=== PATIENT | female | born 1955 | race Caucasian/White ===

== ENCOUNTER 2017-10-10 19:47 | Emergency (ER) | payer OTHER ==
[~2017-10-10] VITALS: Ht 160 cm; Wt 70.8 kg
[~2017-10-10 19:47] MED LIST: ACIDOPHILUS1 EAC1 PO; ALBU90OI6 INH; ALEN70 PO; AMIT10 PO; ASPI81CH; ATOR10; ATOR20 PO; ATOR40TA PO; BACPOLTO30 TP; BENZ100A PO; BETH25 PO; BUME1 PO; BUTASPCAF PO; BUTASPCAFT PO; CALCAVITD PO; CALCIUM 600 +1 EAC3 PO; CEFD300 PO; CEPH500 PO; CETI10 PO; CETI5 PO; CHOL10002; CHOL10002 PO; CILO100 PO; CILO50 PO; CIPR500 PO; CLON.1 PO; CLON1; CODACE30 PO; CONEST.625 PO; CONESTTC VAG; CRUTCH2 USE; CRUTCH4 USE; CYAN1000 PO; CYAN500 PO; CYCL10 PO; Cilostazol50 MG PO; Cleocin HCl300 MG PO; Clindamycin HC150 MG PO; DIAZ5 PO; DIPH50 PO; DOCU100 PO; DULO30 PO; EEMT; EPIN.3I IM; ERGO400 PO; ERGOCALCIFEROL; ESTR2 PO; FENO145 PO; FLUC100 PO; FLUSAL1005 IH; FLUSAL5005 INH; FLUT110OIA IH; FOLI1 PO; FOSI10; FOSI10 PO; FOSINOPRIL; FURO40; FURO40 PO; Ferus150 MG PO; GABA100 PO; GABA300 PO; GLYB5; HYDACE5 PO; HYDCHL25 PO; HYDPAM25; HYDPAM50; HYOS.375ER; Hydrocodone-Ap1 EA23 PO; Hydroxyzine HCl50 MG PO; IMIP50; INS70/30PN SC; INSR10I SC; INSUASPI SC; INSULANI SC; INSULANPEN SC; INSULANPEN SQ; IPRA.03NI; Ipratropium Bro30 ML; JANUVIA; KETO10 PO; LAVAP17G PO; LEVFLO500 PO; LISI20 PO; LISI5 PO; LORA1; Loperamide2 MG PO; MAG PO; MAGCHL64ER PO; MELO7.5 PO; METF500; METO100ER PO; METO2.5 PO; METO50 PO; MOMENI; MONT10T; MONT10T PO; MONT4 PO; MUPI1NAS TOP; MUPI2TO TOP; MUPIROCIN 2% TOP; Metformin HCl1000 MG PO; Metoprolol Tar100 MG PO; Micro-K10 MEQ PO; NAPR500 PO; NIFE60ER; NIFE60ER PO; NITR100CA PO; NITR50; Norco 5-325 Ta1 EACH PO; Novofine 321 EACH MC; OMEP10ER; OMEP20ER PO; OMEP40CA12 PO; OMEPRAZOLE MAGN20 MG PO; ONDA8 PO; OXYACE5T PO; OXYB5 PO; OXYGEN 2L; PANT40; PHENA200 PO; PIOG15; POLY17UD PO; POTA10T PO; POTCHL20ER; POTCHL20ER PO; PROACE100; PROACE100 PO; PROM25 PO; Peri-Colace Ta1 EACH PO; Prednisone10 MG PO; Prednisone20 MG PO; QUET200 PO; RA CALCIUM PO; RANI150; RANI150 PO; RXALBOI INH; RXOXYACE PO; RXPROACE PO; RXTRAM50 PO; SENN187 PO; SERT100; SERT100 PO; SERT50 PO; SITA100T2 PO; SITA25T2 PO; SUCR1 PO; SUMA25 PO; SYNTHETIC CONJUGATED ESTROGENS B; Sorbitol473 ML PO; TOCO400 PO; TRAACE PO; TRAM50 PO; TRAZ100 PO; TRAZ150T57 PO; TRAZ50 PO; TRIHYD253A; TRIHYD253B; Tylenol325 MG PO; Valium5 MG PO; Voltaren100 GM TOP; XARELTO20 MG PO; ZIPR20; ZIPR20 PO; ZIPR80; ZIPR80 PO; ZOLM2.5 PO; ZYRTEC10 M1 PO; Zofran Odt4 MG PO; Zofran Odt4 MG SL; Zofran Odt8 MG SL; [UNRECOGNIZED DRUG - CODE]; [UNRECOGNIZED DRUG - OTHER]; [UNRECOGNIZED DRUG - OTHER]; [UNRECOGNIZED DRUG - OTHER] PO
[2017-10-10] MEDS ORDERED: Glucophage1000 MG PO (20:39)
[2017-10-10 21:02] LABS: Source, Urine Clean Catch
[2017-10-10 21:09] LABS: Bilirubin, Urine Neg (Neg); Blood, Urine 1+ (Neg); Glucose Qualitative, Urine 4+ (Neg); Ketones, Urine Neg (Neg); Leukocyte Esterase, Urine Neg (Neg); Nitrite, Urine Neg (Neg); Protein, Urine 1+ (Neg); Urobilinogen, Urine NORM (Normal)
[2017-10-10 21:15] LABS: Appearance, Urine Clear (Clear); Bacteria Not Seen /hpf; Color, Urine Yellow (P-Yellow); Red Blood Cells, Urine Rare /hpf (0-2); Squamous Epithelial Cells Not Seen /hpf (Few); White Blood Cells, Urine Not Seen /hpf (0-5)
[2017-10-10 21:16] LABS: Amorphous Light (0-Heavy); Transitional Epithelial Cells Few /hpf (0-Rare)
[2017-10-10] MEDS ORDERED: Robaxin500 MG PO (22:17)
[2018-04-25] MEDS ORDERED: BUDE6HFA INH (13:37)
[2018-09-01] MEDS ORDERED: Omeprazole20 M1 PO (14:14)
[2018-09-01] MEDS ORDERED: Nifediac Cc60 MG PO (14:14)
[2018-09-01] MEDS ORDERED: CEFU250T47 PO (14:15)
[2018-09-01] MEDS ORDERED: METCAR500 PO (14:16)
== END 2017-10-10 23:00 | disposition home or self-care (01) ==
LOC: ER 19:47
PROVIDERS: Emergency Medicine
DX: M54.41 Lumbago with sciatica, right side (principal); E11.40 Type 2 diabetes mellitus with diabetic neuropathy, unspecified; F32.9 Major depressive disorder, single episode, unspecified; J44.9 Chronic obstructive pulmonary disease, unspecified; Z88.1 Allergy status to other antibiotic agents; Z88.0 Allergy status to penicillin; Z88.8 Allergy status to other drugs, medicaments and biological substances; Z88.2 Allergy status to sulfonamides; Z79.899 Other long term (current) drug therapy; Z79.4 Long term (current) use of insulin; Z90.710 Acquired absence of both cervix and uterus; Z87.891 Personal history of nicotine dependence
CPT/HCPCS: 72100; 72170; 81001; 96374; 99283; J1885; P9612

== ENCOUNTER 2017-12-14 21:08 | Emergency (ER) | payer OTHER ==
[~2017-12-14] VITALS: Ht 160 cm; Wt 61.7 kg
[~2017-12-14 21:08] MED LIST changes: +Glucophage1000 MG PO; +Robaxin500 MG PO
[2018-04-25] MEDS ORDERED: BUDE6HFA INH (13:37)
[2018-09-01] MEDS ORDERED: Omeprazole20 M1 PO (14:14)
[2018-09-01] MEDS ORDERED: Nifediac Cc60 MG PO (14:14)
[2018-09-01] MEDS ORDERED: CEFU250T47 PO (14:15)
[2018-09-01] MEDS ORDERED: METCAR500 PO (14:16)
== END 2017-12-14 22:00 | disposition home or self-care (01) ==
LOC: ER 21:08
DX: M25.561 Pain in right knee (principal); J44.9 Chronic obstructive pulmonary disease, unspecified; E11.40 Type 2 diabetes mellitus with diabetic neuropathy, unspecified; F32.9 Major depressive disorder, single episode, unspecified; Z88.1 Allergy status to other antibiotic agents; Z88.0 Allergy status to penicillin; Z88.8 Allergy status to other drugs, medicaments and biological substances; Z88.2 Allergy status to sulfonamides; Z79.899 Other long term (current) drug therapy; Z79.4 Long term (current) use of insulin; W19.XXXA Unspecified fall, initial encounter; Y92.009 Unspecified place in unspecified non-institutional (private) residence as the place of occurrence of the external cause
CPT/HCPCS: 73562-RT; 99283

== ENCOUNTER 2018-04-04 08:00 | Day surgery (SDC) | payer OTHER | END 2018-04-04 09:52 | disposition home or self-care (01) | LOC: WOUND 08:00 | PROC: 2W1RX6Z Compression of Left Lower Leg using Pressure Dressing (ICD-10-PCS; principal; 2018-04-04) | DX: Z48.00 Encounter for change or removal of nonsurgical wound dressing (principal); E11.622 Type 2 diabetes mellitus with other skin ulcer; L97.822 Non-pressure chronic ulcer of other part of left lower leg with fat layer exposed; L97.921 Non-pressure chronic ulcer of unspecified part of left lower leg limited to breakdown of skin; L97.911 Non-pressure chronic ulcer of unspecified part of right lower leg limited to breakdown of skin; E55.9 Vitamin D deficiency, unspecified; E11.65 Type 2 diabetes mellitus with hyperglycemia; I10 Essential (primary) hypertension; Z88.8 Allergy status to other drugs, medicaments and biological substances; Z88.0 Allergy status to penicillin; Z88.1 Allergy status to other antibiotic agents; Z87.891 Personal history of nicotine dependence; Z86.73 Personal history of transient ischemic attack (TIA), and cerebral infarction without residual deficits | CPT/HCPCS: 87081; G0463 ==

== ENCOUNTER 2018-04-09 13:32 | Day surgery (SDC) | payer OTHER | END 2018-04-09 14:17 | disposition home or self-care (01) | LOC: WOUND 13:32 | PROC: 2W1RX6Z Compression of Left Lower Leg using Pressure Dressing (ICD-10-PCS; principal; 2018-04-09) | DX: E11.622 Type 2 diabetes mellitus with other skin ulcer (principal); E11.65 Type 2 diabetes mellitus with hyperglycemia; L97.822 Non-pressure chronic ulcer of other part of left lower leg with fat layer exposed; I10 Essential (primary) hypertension ==

== ENCOUNTER 2018-05-02 10:32 | Day surgery (SDC) | payer OTHER ==
[~2018-05-02 10:32] MED LIST changes: +BUDE6HFA INH
== END 2018-05-02 14:21 | disposition home or self-care (01) ==
LOC: ATC 10:32
DX: E11.622 Type 2 diabetes mellitus with other skin ulcer (principal); E11.65 Type 2 diabetes mellitus with hyperglycemia; L97.822 Non-pressure chronic ulcer of other part of left lower leg with fat layer exposed; I10 Essential (primary) hypertension
CPT/HCPCS: 99211

== ENCOUNTER 2018-05-07 00:52 | Day surgery (SDC) | payer OTHER | END 2018-05-07 15:33 | disposition home or self-care (01) | LOC: ATC 00:52 | DX: E11.622 Type 2 diabetes mellitus with other skin ulcer (principal); L97.822 Non-pressure chronic ulcer of other part of left lower leg with fat layer exposed; E11.65 Type 2 diabetes mellitus with hyperglycemia; I10 Essential (primary) hypertension | CPT/HCPCS: 87081; 99214 ==

== ENCOUNTER 2018-05-14 00:17 | Day surgery (SDC) | payer OTHER | END 2018-05-14 22:34 | disposition home or self-care (01) | LOC: ATC 00:17 | DX: E11.622 Type 2 diabetes mellitus with other skin ulcer (principal); E11.65 Type 2 diabetes mellitus with hyperglycemia; L97.822 Non-pressure chronic ulcer of other part of left lower leg with fat layer exposed; I10 Essential (primary) hypertension | CPT/HCPCS: 87081; 99214 ==

== ENCOUNTER 2018-05-20 00:05 | Day surgery (SDC) | payer OTHER | END 2018-05-20 14:44 | disposition home or self-care (01) | LOC: ATC 00:05 | DX: I87.2 Venous insufficiency (chronic) (peripheral) (principal); E11.65 Type 2 diabetes mellitus with hyperglycemia; I10 Essential (primary) hypertension; Z88.8 Allergy status to other drugs, medicaments and biological substances; Z87.891 Personal history of nicotine dependence | CPT/HCPCS: 99212 ==

== ENCOUNTER → 2018-06-10 | Outpatient (CLI) | payer OTHER | END | disposition home or self-care (01) | LOC: LAB 17:37 → LAB SHORT 17:37 | DX: L03.032 Cellulitis of left toe (principal); M79.671 Pain in right foot | CPT/HCPCS: 87070; 87077; 87147; 87186; 87205 ==

== ENCOUNTER 2019-01-06 19:50 | Emergency (ER) | payer OTHER ==
[~2019-01-06] VITALS: Ht 160 cm; Wt 61.7 kg
[~2019-01-06 19:50] MED LIST changes: +CEFU250T47 PO; +METCAR500 PO; +Nifediac Cc60 MG PO; +Omeprazole20 M1 PO
[2019-01-06] MEDS ORDERED: Norco 5-325 Ta1 EACH PO (20:53)
== END 2019-01-06 21:01 | disposition home or self-care (01) ==
LOC: ER 19:50
DX: S93.401A Sprain of unspecified ligament of right ankle, initial encounter (principal); E11.40 Type 2 diabetes mellitus with diabetic neuropathy, unspecified; J44.9 Chronic obstructive pulmonary disease, unspecified; M79.7 Fibromyalgia; F32.9 Major depressive disorder, single episode, unspecified; Z88.0 Allergy status to penicillin; Z88.1 Allergy status to other antibiotic agents; Z88.2 Allergy status to sulfonamides; Z88.8 Allergy status to other drugs, medicaments and biological substances; Z79.4 Long term (current) use of insulin; Z79.899 Other long term (current) drug therapy; Z85.828 Personal history of other malignant neoplasm of skin; Z86.73 Personal history of transient ischemic attack (TIA), and cerebral infarction without residual deficits; Z87.891 Personal history of nicotine dependence; X50.0XXA Overexertion from strenuous movement or load, initial encounter
CPT/HCPCS: 73610; 99283-25

== ENCOUNTER 2019-01-18 16:43 | Inpatient (IN) | payer OTHER ==
[~2019-01-18] VITALS: Ht 165.1 cm; Wt 72.3 kg
[~2019-01-18 16:43] MED LIST changes: -INSULANPEN SQ; +NOVOLOG FL100 UNIT/1 SC
[2019-01-18 17:47] LABS: BASOPHILS ABSOLUTE AUTO 0.03 K/mm3 (0.00-0.23); BASOPHILS PERCENT AUTO 0 % (0-2); EOSINOPHILS ABSOLUTE AUTO 0.12 K/mm3 (0.00-0.68); EOSINOPHILS PERCENT AUTO 1 % (0-6); Hematocrit 34.5 % (33.0-51.0); IMMATURE GRAN ABSOLUTE AUTO 0.03 K/mm3 (0.00-0.10); IMMATURE GRAN PERCENT AUTO 0 % (0-1); LYMPHOCYTES PERCENT AUTO 15 % (21-46); MONOCYTES ABSOLUTE AUTO 0.83 K/mm3 (0.16-1.47); MONOCYTES PERCENT AUTO 9 % (4-13); Mean Corpuscular HGB 29.2 pg (26.0-34.0); Mean Corpuscular HGB Conc 31.9 g/dL (31.5-36.5); Mean Corpuscular Volume 92 fL (80-100); Mean Platelet Volume 9.8 fL (9.1-12.4); NEUTROPHILS ABSOLUTE AUTO 6.55 K/mm3 (1.96-9.15); NEUTROPHILS PERCENT AUTO 74 % (41-73); Platelet Count 240 K/mm3 (150-400); RDW Coefficient Variation 12.7 % (11.7-14.2); RDW Standard Deviation 42.1 fL (35.1-46.3); Red Blood Cell Count 3.77 M/mm3 (3.80-5.20); White Blood Cell Count 8.86 K/mm3 (4.00-11.30)
[2019-01-18 18:06] LABS: Alanine Aminotransfer (ALT/SGP 21 U/L (12-78); Albumin, Blood 2.9 g/dL (3.4-5.0); Albumin/Globulin Ratio 0.7 (0.8-1.8); Alk Phos 93 U/L (50-136); Anion Gap 6 mmol/L (6-16); Aspartate Aminotrans (AST/SGOT 13 U/L (12-37); Bilirubin, Total 0.3 mg/dL (0.1-1.0); Blood Urea Nitrogen 22 mg/dL (8-24); Bun/Creatinine Ratio 38.1 (12.0-20.0); CO2, Blood 29 mmol/L (21-32); Calcium, Blood 8.8 mg/dL (8.5-10.1); Chloride, Blood 106 mmol/L (98-108); Creatinine, Blood 0.58 mg/dL (0.40-1.00); Globulin, Blood 4.1 g/dL (2.2-4.0); Glomerular Filtration Rate >60 (60-); Glucose, Blood 116 mg/dL (70-99); Sodium, Blood 141 mmol/L (136-145)
[2019-01-18] MEDS ORDERED: Cilostazol50 MG PO (19:23)
[2019-01-18] MEDS ORDERED: GABA300 PO (19:23)
[2019-01-18] MEDS ORDERED: SUMA25 PO (19:23)
[2019-01-18] MEDS ORDERED: QUET25 PO (19:23)
[2019-01-18] MEDS ORDERED: METCAR500 PO (19:24)
[2019-01-18] MEDS ORDERED: HYDHCL25 PO (19:24)
[2019-01-18] MEDS ORDERED: Norco 5-325 Ta1 EACH PO (19:25)
--- NOTE | 2019-01-19 04:30 | NUR ---
SHIFT SUMMARY PT NEW ED ADMIT THIS EVENING. LLE VERY SWOLLEN, RED, AND HOT. REDNESS EXTENDS FROM TOP OF FOOT TO JUST BELOW THE KNEE. OUTLINE REDNESS WITH SKIN MARKER AND PICTURES WERE TAKEN AND PLACED IN THE CHART. NO WEEPING NOTED. LLE LEFT OPEN TO AIR. PT WAS ABLE TO BEAR WEIGHT ON HER LEG BUT WAS SLOW MOVING WITH AMBULATION. REQUIRED LITTLE TO NO ASSISTANCE TO GET UP TO THE BSC. PT HAS CHRONIC GENERALIZED PAIN WITH ACUTE MORE SEVERE PAIN IN LLE. MEDICATED X 1 W/ 1 TAB NORCO 5/325 AND ORDERED MUSCLE RELAXER. PT WORE 2 L O2 NC AT BEDTIME WHICH IS HER HOME BASELINE DOSE. NO ACUTE CHANGES THIS SHIFT. PT RESTING IN BED AT THIS TIME. VITAL SIGNS STABLE. WILL CONTINUE TO MONITOR.
[2019-01-19 05:31] LABS: Hematocrit 32.6 % (33.0-51.0); Hemoglobin 10.5 g/dL (11.5-16.0); Mean Corpuscular HGB 29.1 pg (26.0-34.0); Mean Corpuscular HGB Conc 32.2 g/dL (31.5-36.5); Mean Corpuscular Volume 90 fL (80-100); Mean Platelet Volume 9.8 fL (9.1-12.4); Platelet Count 226 K/mm3 (150-400); RDW Coefficient Variation 12.6 % (11.7-14.2); RDW Standard Deviation 41.6 fL (35.1-46.3); Red Blood Cell Count 3.61 M/mm3 (3.80-5.20); White Blood Cell Count 6.73 K/mm3 (4.00-11.30)
--- NOTE | 2019-01-19 17:09 | NUR ---
ALERT. ORIENTED. REDNESS TO LLE WITHIN MARKED AREA. HISTORY OF ULCER TO LEFT GREAT TOE W/PODIATRY TREATING. ANTIBIOTIC ONITMENT APPLIED AND BANDAID. ABLE TO MAKE NEEDS KNOWN. HAD SOME "CHEST DISCOMFORT" WHICH SHE STS HAS HAD FOR MONTHS. RESOLVED WITH BREATHING TREATMENT. AMBULATORY WITH STEADY GAIT TO [facility]. IV PATENT. ON OXYGEN. UNLABORED RESPIRATIONS. BED IN LOW POSITION. CALL LIGHT WITHIN REACH. TM.
--- NOTE | 2019-01-20 04:48 | NUR ---
SHIFT SUMMARY PT ADMITTED FOR CELLULITIS OF THE LEFT LEG. FULL CODE. ADA DIET. CBG AT AC AND HS. CONTINUOUS PULSE OX REFUSED AND PAPER SIGNED PER REPORT. LOVENOX FOR DVT PROPHYLAXIS. 20G IV TO R FA. INDEPENDENT TO BSC. TAKES MEDICATIONS WHOLE. PTS BLOOD CULTURE WAS POSITIVE FOR GRAM POSITIVE COCCI IN CHAINS AND THE MD IS AWARE PER REPORT. THE PT IS A POSSIBLE DISHCARGE TODAY. THE PT HAS APPEARED TO SLEEP COMFORTABLY MOST OF THE NIGHT WITH NO APPARENT SIGNS OF ACUTE DISTRESS. ABLE TO MAKE NEEDS KNOWN AND CALL LIGHT IN REACH.
[2019-01-20 05:25] LABS: BASOPHILS ABSOLUTE AUTO 0.02 K/mm3 (0.00-0.23); BASOPHILS PERCENT AUTO 0 % (0-2); EOSINOPHILS ABSOLUTE AUTO 0.17 K/mm3 (0.00-0.68); EOSINOPHILS PERCENT AUTO 3 % (0-6); Hematocrit 31.5 % (33.0-51.0); IMMATURE GRAN ABSOLUTE AUTO 0.01 K/mm3 (0.00-0.10); IMMATURE GRAN PERCENT AUTO 0 % (0-1); LYMPHOCYTES ABSOLUTE AUTO 1.47 K/mm3 (0.84-5.20); LYMPHOCYTES PERCENT AUTO 24 % (21-46); MONOCYTES ABSOLUTE AUTO 0.54 K/mm3 (0.16-1.47); MONOCYTES PERCENT AUTO 9 % (4-13); Mean Corpuscular HGB 29.5 pg (26.0-34.0); Mean Corpuscular HGB Conc 31.7 g/dL (31.5-36.5); Mean Platelet Volume 10.4 fL (9.1-12.4); NEUTROPHILS ABSOLUTE AUTO 3.83 K/mm3 (1.96-9.15); NEUTROPHILS PERCENT AUTO 64 % (41-73); Platelet Count 234 K/mm3 (150-400); RDW Coefficient Variation 12.7 % (11.7-14.2); RDW Standard Deviation 43.3 fL (35.1-46.3); Red Blood Cell Count 3.39 M/mm3 (3.80-5.20); White Blood Cell Count 6.04 K/mm3 (4.00-11.30)
[2019-01-20 05:28] LABS: Mean Corpuscular Volume 93 fL (80-100)
[2019-01-20 05:55] LABS: Anion Gap 6 mmol/L (6-16); Blood Urea Nitrogen 11 mg/dL (8-24); Bun/Creatinine Ratio 19.1 (12.0-20.0); CO2, Blood 30 mmol/L (21-32); Calcium, Blood 8.5 mg/dL (8.5-10.1); Chloride, Blood 107 mmol/L (98-108); Creatinine, Blood 0.58 mg/dL (0.40-1.00); Glomerular Filtration Rate >60 (60-); Glucose, Blood 173 mg/dL (70-99); Potassium, Blood 3.6 mmol/L (3.5-5.5); Sodium, Blood 143 mmol/L (136-145)
[2019-01-20] MEDS ORDERED: ALBU90OI6 INH (14:57)
[2019-01-20] MEDS ORDERED: Vsl#3 Capsule1 EACH PO (14:59)
[2019-01-20] MEDS ORDERED: DULERA 100 MCG/13 GM INH (15:00)
[2019-01-20] MEDS ORDERED: METO100ER PO (15:01)
[2019-01-20] MEDS ORDERED: Prinivil10 MG PO (15:03)
[2019-01-20] MEDS ORDERED: CEPH500 PO (16:02)
--- NOTE | 2019-01-20 16:29 | NUR ---
DISCHARGE SUMMARY IV REMOVED. PATIENT DISCHARGED. ESCORTED OUT BY MILL SET UP. RX CALLED TO [facility] [address]. NO ACUTE ISSUES NOTED.
== END 2019-01-20 15:38 | disposition home or self-care (01) | DRG 638 ==
LOC: ER 16:43 → MEDS 16:44 → ENPENDDIS 01-20 13:30 → MEDS 01-20 15:38
PROVIDERS: Emergency Medicine; Internal Medicine; Nurse Practitioner Acute Care; ADMIT Hospitalist
DX: E11.628 Type 2 diabetes mellitus with other skin complications (principal); L03.116 Cellulitis of left lower limb; R78.81 Bacteremia; J44.9 Chronic obstructive pulmonary disease, unspecified; K21.9 Gastro-esophageal reflux disease without esophagitis; M79.7 Fibromyalgia; G47.33 Obstructive sleep apnea (adult) (pediatric); Z86.73 Personal history of transient ischemic attack (TIA), and cerebral infarction without residual deficits; I73.9 Peripheral vascular disease, unspecified; E11.9 Type 2 diabetes mellitus without complications; Z86.718 Personal history of other venous thrombosis and embolism; Z79.4 Long term (current) use of insulin; Z99.81 Dependence on supplemental oxygen; F32.9 Major depressive disorder, single episode, unspecified; K21.0 Gastro-esophageal reflux disease with esophagitis; I10 Essential (primary) hypertension; Z87.891 Personal history of nicotine dependence; F41.1 Generalized anxiety disorder; L97.529 Non-pressure chronic ulcer of other part of left foot with unspecified severity
CPT/HCPCS: 36415; 80048; 80053; 82947; 83605; 85025; 85027; 87040; 93971; 94640; 94760; 96361; 96365; 96366; 96367; 96372; 96376; 99285-25; A9270-GY; G0378; J0690; J1650; J1815; J7030

== ENCOUNTER → 2019-03-17 | Outpatient (CLI) | payer OTHER ==
[~2019-03-17] MED LIST changes: +ACET325 PO; +Anti-Diarrheal2 MG PO; +DULERA 100 MCG/13 GM INH; +FLUTICASONE-SA1 EAC1 INH; +HYDHCL25 PO; +LIDO700A20 TOP; +ONDA4ODT MM; +Oyster Shell C500 MG PO; +Prinivil10 MG PO; +QUET25 PO; +Robaxin750 MG PO; +Vsl#3 Capsule1 EACH PO
[2019-03-17 14:49] LABS: Candida species (DNA Probe) Positive (NEGATIVE); G. vaginalis (DNA Probe) Negative (NEGATIVE); T. vaginalis (DNA Probe) Negative (NEGATIVE)
== END | disposition home or self-care (01) ==
LOC: LAB SHORT 09:51 → LAB 09:51
PROVIDERS: Nurse Practitioner Obstetrics & Gynecology
DX: N76.0 Acute vaginitis (principal)
CPT/HCPCS: 81001; 87070; 87086; 87147; 87205; 87480; 87510; 87660

== ENCOUNTER 2019-04-11 17:29 | Emergency (ER) | payer OTHER ==
[~2019-04-11] VITALS: Ht 160 cm; Wt 71.7 kg
[~2019-04-11 17:29] MED LIST changes: -ACET325 PO; -Anti-Diarrheal2 MG PO; -FLUTICASONE-SA1 EAC1 INH; -LIDO700A20 TOP; -ONDA4ODT MM; -Oyster Shell C500 MG PO
[2019-04-11] MEDS ORDERED: LIDO700A20 TOP (19:27)
== END 2019-04-11 19:41 | disposition home or self-care (01) ==
LOC: ER 17:29
DX: S39.012A Strain of muscle, fascia and tendon of lower back, initial encounter (principal); R07.89 Other chest pain; W01.198A Fall on same level from slipping, tripping and stumbling with subsequent striking against other object, initial encounter; J44.9 Chronic obstructive pulmonary disease, unspecified; E11.40 Type 2 diabetes mellitus with diabetic neuropathy, unspecified; F32.9 Major depressive disorder, single episode, unspecified; Z88.0 Allergy status to penicillin; Z88.1 Allergy status to other antibiotic agents; Z88.2 Allergy status to sulfonamides; Z88.8 Allergy status to other drugs, medicaments and biological substances; Z79.899 Other long term (current) drug therapy; Z79.4 Long term (current) use of insulin; Z87.891 Personal history of nicotine dependence
CPT/HCPCS: 71046; 72100; 99283-25

== ENCOUNTER 2019-04-24 02:05 | Day surgery (SDC) | payer OTHER ==
[~2019-04-24 02:05] MED LIST changes: +LIDO700A20 TOP
== END 2019-04-24 16:05 | disposition home or self-care (01) ==
LOC: ATC 02:05
DX: L03.116 Cellulitis of left lower limb (principal); E11.621 Type 2 diabetes mellitus with foot ulcer; L97.521 Non-pressure chronic ulcer of other part of left foot limited to breakdown of skin; Z79.899 Other long term (current) drug therapy; Z79.4 Long term (current) use of insulin; Z88.0 Allergy status to penicillin; Z88.2 Allergy status to sulfonamides; Z88.1 Allergy status to other antibiotic agents; Z88.8 Allergy status to other drugs, medicaments and biological substances
CPT/HCPCS: 96365; 96375; 96413; 96415; J0878

== ENCOUNTER 2019-04-25 13:55 | Day surgery (SDC) | payer OTHER | END 2019-04-25 14:42 | disposition home or self-care (01) | LOC: ATC 13:55 | DX: L03.116 Cellulitis of left lower limb (principal); E11.621 Type 2 diabetes mellitus with foot ulcer; L97.521 Non-pressure chronic ulcer of other part of left foot limited to breakdown of skin; S39.012A Strain of muscle, fascia and tendon of lower back, initial encounter; R07.89 Other chest pain; E11.40 Type 2 diabetes mellitus with diabetic neuropathy, unspecified; J44.9 Chronic obstructive pulmonary disease, unspecified; F32.9 Major depressive disorder, single episode, unspecified; Z88.1 Allergy status to other antibiotic agents; Z88.0 Allergy status to penicillin; Z88.2 Allergy status to sulfonamides; Z88.8 Allergy status to other drugs, medicaments and biological substances; Z79.899 Other long term (current) drug therapy; Z87.891 Personal history of nicotine dependence; Z79.4 Long term (current) use of insulin; W19.XXXA Unspecified fall, initial encounter | CPT/HCPCS: 96365; J0878 ==

== ENCOUNTER 2019-04-27 00:01 | Day surgery (SDC) | payer OTHER | END 2019-04-27 15:15 | disposition home or self-care (01) | LOC: ATC 00:01 | DX: E11.621 Type 2 diabetes mellitus with foot ulcer (principal); L97.521 Non-pressure chronic ulcer of other part of left foot limited to breakdown of skin; L03.116 Cellulitis of left lower limb; E11.40 Type 2 diabetes mellitus with diabetic neuropathy, unspecified; J44.9 Chronic obstructive pulmonary disease, unspecified; F32.9 Major depressive disorder, single episode, unspecified; J45.909 Unspecified asthma, uncomplicated; Z88.1 Allergy status to other antibiotic agents; Z88.0 Allergy status to penicillin; Z88.8 Allergy status to other drugs, medicaments and biological substances; Z88.2 Allergy status to sulfonamides; Z79.899 Other long term (current) drug therapy; Z79.4 Long term (current) use of insulin; Z87.891 Personal history of nicotine dependence | CPT/HCPCS: 96365; J0878 ==

== ENCOUNTER 2019-04-28 00:16 | Day surgery (SDC) | payer OTHER | END 2019-04-28 14:45 | disposition home or self-care (01) | LOC: ATC 00:16 | DX: E11.621 Type 2 diabetes mellitus with foot ulcer (principal); E11.40 Type 2 diabetes mellitus with diabetic neuropathy, unspecified; L97.521 Non-pressure chronic ulcer of other part of left foot limited to breakdown of skin; L03.116 Cellulitis of left lower limb; J44.9 Chronic obstructive pulmonary disease, unspecified; F32.9 Major depressive disorder, single episode, unspecified; M79.7 Fibromyalgia; G89.29 Other chronic pain; Z79.899 Other long term (current) drug therapy; Z98.890 Other specified postprocedural states; Z88.0 Allergy status to penicillin; Z88.8 Allergy status to other drugs, medicaments and biological substances; Z88.1 Allergy status to other antibiotic agents; Z88.2 Allergy status to sulfonamides; Z79.4 Long term (current) use of insulin; Z87.891 Personal history of nicotine dependence | CPT/HCPCS: 96365; J0878 ==

== ENCOUNTER 2019-05-01 00:16 | Day surgery (SDC) | payer OTHER ==
--- NOTE | 2019-05-01 15:16 | NUR ---
IV IS PLACED IN RIGHT FOREARM. WRAPPED WITH 2X2'S, COBAN, AND NETTING FOR USE THIS WEEKEND
== END 2019-05-01 15:17 | disposition home or self-care (01) ==
LOC: ATC 00:16
DX: L03.116 Cellulitis of left lower limb (principal); E11.621 Type 2 diabetes mellitus with foot ulcer; L97.521 Non-pressure chronic ulcer of other part of left foot limited to breakdown of skin; E11.40 Type 2 diabetes mellitus with diabetic neuropathy, unspecified; J44.9 Chronic obstructive pulmonary disease, unspecified; F32.9 Major depressive disorder, single episode, unspecified; Z88.1 Allergy status to other antibiotic agents; Z88.0 Allergy status to penicillin; Z88.8 Allergy status to other drugs, medicaments and biological substances; Z88.2 Allergy status to sulfonamides; Z79.899 Other long term (current) drug therapy; Z79.4 Long term (current) use of insulin; Z87.891 Personal history of nicotine dependence
CPT/HCPCS: 96365; J0878

== ENCOUNTER 2019-05-02 10:40 | Day surgery (SDC) | payer OTHER | END 2019-05-02 11:21 | disposition home or self-care (01) | LOC: ATC 10:40 | DX: L03.116 Cellulitis of left lower limb (principal); E11.621 Type 2 diabetes mellitus with foot ulcer; L97.521 Non-pressure chronic ulcer of other part of left foot limited to breakdown of skin; E11.40 Type 2 diabetes mellitus with diabetic neuropathy, unspecified; F32.9 Major depressive disorder, single episode, unspecified; J45.909 Unspecified asthma, uncomplicated; M54.9 Dorsalgia, unspecified; G89.29 Other chronic pain; Z88.1 Allergy status to other antibiotic agents; Z88.0 Allergy status to penicillin; Z99.3 Dependence on wheelchair; Z88.8 Allergy status to other drugs, medicaments and biological substances; Z79.899 Other long term (current) drug therapy; Z87.891 Personal history of nicotine dependence | CPT/HCPCS: 96365; J0878 ==

== ENCOUNTER 2019-05-03 10:40 | Day surgery (SDC) | payer OTHER | END 2019-05-03 11:27 | disposition home or self-care (01) | LOC: ATC 10:40 | DX: L03.116 Cellulitis of left lower limb (principal); E11.621 Type 2 diabetes mellitus with foot ulcer; L97.521 Non-pressure chronic ulcer of other part of left foot limited to breakdown of skin; J44.9 Chronic obstructive pulmonary disease, unspecified; E11.40 Type 2 diabetes mellitus with diabetic neuropathy, unspecified; F32.9 Major depressive disorder, single episode, unspecified; J45.909 Unspecified asthma, uncomplicated; M54.9 Dorsalgia, unspecified; G89.29 Other chronic pain; Z88.0 Allergy status to penicillin; Z88.1 Allergy status to other antibiotic agents; Z88.8 Allergy status to other drugs, medicaments and biological substances; Z79.899 Other long term (current) drug therapy; Z87.891 Personal history of nicotine dependence | CPT/HCPCS: 96365; J0878 ==

== ENCOUNTER 2019-05-04 00:10 | Day surgery (SDC) | payer OTHER | END 2019-05-04 14:48 | disposition home or self-care (01) | LOC: ATC 00:10 | DX: L03.116 Cellulitis of left lower limb (principal); E11.621 Type 2 diabetes mellitus with foot ulcer; L97.521 Non-pressure chronic ulcer of other part of left foot limited to breakdown of skin; J44.9 Chronic obstructive pulmonary disease, unspecified; E11.40 Type 2 diabetes mellitus with diabetic neuropathy, unspecified; M54.9 Dorsalgia, unspecified; G89.29 Other chronic pain; Z88.0 Allergy status to penicillin; Z88.1 Allergy status to other antibiotic agents; Z88.8 Allergy status to other drugs, medicaments and biological substances; Z79.899 Other long term (current) drug therapy; Z87.891 Personal history of nicotine dependence; Z88.2 Allergy status to sulfonamides | CPT/HCPCS: 96365; J0878 ==

== ENCOUNTER 2019-05-05 08:01 | Day surgery (SDC) | payer OTHER | END 2019-05-05 14:58 | disposition home or self-care (01) | LOC: ATC 08:01 | DX: L03.116 Cellulitis of left lower limb (principal); E11.622 Type 2 diabetes mellitus with other skin ulcer; L97.521 Non-pressure chronic ulcer of other part of left foot limited to breakdown of skin; J44.9 Chronic obstructive pulmonary disease, unspecified; E11.40 Type 2 diabetes mellitus with diabetic neuropathy, unspecified; Z88.0 Allergy status to penicillin; Z88.1 Allergy status to other antibiotic agents; Z88.2 Allergy status to sulfonamides; Z88.8 Allergy status to other drugs, medicaments and biological substances; Z87.891 Personal history of nicotine dependence; Z79.899 Other long term (current) drug therapy | CPT/HCPCS: 96365; J0878 ==

== ENCOUNTER 2019-07-01 10:13 | Inpatient (IN) | payer OTHER ==
[~2019-07-01] VITALS: Ht 160 cm; Wt 69.0 kg
[2019-07-01 10:41] LABS: BASOPHILS ABSOLUTE AUTO 0.02 K/mm3 (0.00-0.23); BASOPHILS PERCENT AUTO 0 % (0-2); EOSINOPHILS PERCENT AUTO 0 % (0-6); Hematocrit 47.4 % (33.0-51.0); Hemoglobin 15.5 g/dL (11.5-16.0); IMMATURE GRAN ABSOLUTE AUTO 0.07 K/mm3 (0.00-0.10); IMMATURE GRAN PERCENT AUTO 1 % (0-1); LYMPHOCYTES ABSOLUTE AUTO 0.74 K/mm3 (0.84-5.20); LYMPHOCYTES PERCENT AUTO 5 % (21-46); MONOCYTES ABSOLUTE AUTO 0.69 K/mm3 (0.16-1.47); MONOCYTES PERCENT AUTO 5 % (4-13); Mean Corpuscular HGB Conc 32.7 g/dL (31.5-36.5); Mean Corpuscular Volume 89 fL (80-100); Mean Platelet Volume 10.3 fL (9.1-12.4); NEUTROPHILS PERCENT AUTO 89 % (41-73); Platelet Count 253 K/mm3 (150-400); RDW Coefficient Variation 12.7 % (11.7-14.2); Red Blood Cell Count 5.35 M/mm3 (3.80-5.20); White Blood Cell Count 13.62 K/mm3 (4.00-11.30)
[2019-07-01 10:54] LABS: International Normalized Ratio 0.97; Prothrombin Time Results 10.3 Sec (9.7-11.5)
[2019-07-01 11:02] LABS: Alanine Aminotransfer (ALT/SGP 19 U/L (12-78); Albumin, Blood 3.4 g/dL (3.4-5.0); Albumin/Globulin Ratio 0.7 (0.8-1.8); Alk Phos 135 U/L (50-136); Anion Gap 22 mmol/L (6-16); Aspartate Aminotrans (AST/SGOT 12 U/L (12-37); Bilirubin, Total 0.4 mg/dL (0.1-1.0); Blood Urea Nitrogen 24 mg/dL (8-24); CO2, Blood 20 mmol/L (21-32); Calcium, Blood 9.4 mg/dL (8.5-10.1); Chloride, Blood 92 mmol/L (98-108); Creatinine, Blood 0.75 mg/dL (0.40-1.00); Globulin, Blood 4.8 g/dL (2.2-4.0); Glomerular Filtration Rate >60 (60-); Glucose, Blood 441 mg/dL (70-99); Potassium, Blood 3.4 mmol/L (3.5-5.5); Sodium, Blood 134 mmol/L (136-145); Total Protein, Blood 8.2 g/dL (6.4-8.2)
[2019-07-01 13:59] LABS: Magnesium, Blood 1.6 mg/dL (1.6-2.4); Salicylate 3.2 mg/dL (2.8-20.0)
[2019-07-01 14:19] LABS: Base Excess Venous -6.1 mmol/L; Bicarbonate Venous 19.7 mmol/L (24.0-30.0); PCO2 Venous 40.4 mmHg (38-42); PO2 Venous 105 mmHg (38-42); pH Blood Venous 7.31 (7.34-7.37)
[2019-07-01 14:40] LABS: Beta-hydroxybutyrate 75.8 mg/dL (0.2-2.8)
[2019-07-01 17:29] LABS: Hematocrit 40.5 % (33.0-51.0); Hemoglobin 13.2 g/dL (11.5-16.0)
[2019-07-01 17:37] LABS: Anion Gap 11 mmol/L (6-16); Blood Urea Nitrogen 23 mg/dL (8-24); Bun/Creatinine Ratio 32.5 (12.0-20.0); CO2, Blood 21 mmol/L (21-32); Calcium, Blood 8.6 mg/dL (8.5-10.1); Chloride, Blood 104 mmol/L (98-108); Creatinine, Blood 0.71 mg/dL (0.40-1.00); Glomerular Filtration Rate >60 (60-); Glucose, Blood 321 mg/dL (70-99); Potassium, Blood 3.9 mmol/L (3.5-5.5); Sodium, Blood 136 mmol/L (136-145)
[2019-07-01 21:00] LABS: Hematocrit 40.6 % (33.0-51.0)
[2019-07-02 03:42] LABS: BASOPHILS ABSOLUTE AUTO 0.02 K/mm3 (0.00-0.23); BASOPHILS PERCENT AUTO 0 % (0-2); EOSINOPHILS PERCENT AUTO 0 % (0-6); Hematocrit 36.9 % (33.0-51.0); IMMATURE GRAN ABSOLUTE AUTO 0.05 K/mm3 (0.00-0.10); IMMATURE GRAN PERCENT AUTO 1 % (0-1); LYMPHOCYTES ABSOLUTE AUTO 0.95 K/mm3 (0.84-5.20); LYMPHOCYTES PERCENT AUTO 10 % (21-46); MONOCYTES PERCENT AUTO 9 % (4-13); Mean Corpuscular HGB 28.6 pg (26.0-34.0); Mean Corpuscular HGB Conc 32.5 g/dL (31.5-36.5); Mean Corpuscular Volume 88 fL (80-100); Mean Platelet Volume 10.3 fL (9.1-12.4); NEUTROPHILS ABSOLUTE AUTO 7.87 K/mm3 (1.96-9.15); NEUTROPHILS PERCENT AUTO 80 % (41-73); Platelet Count 198 K/mm3 (150-400); RDW Coefficient Variation 12.7 % (11.7-14.2); RDW Standard Deviation 41.2 fL (35.1-46.3); Red Blood Cell Count 4.19 M/mm3 (3.80-5.20); White Blood Cell Count 9.79 K/mm3 (4.00-11.30)
[2019-07-02 04:08] LABS: Alanine Aminotransfer (ALT/SGP 14 U/L (12-78); Albumin, Blood 2.5 g/dL (3.4-5.0); Albumin/Globulin Ratio 0.7 (0.8-1.8); Alk Phos 83 U/L (50-136); Anion Gap 7 mmol/L (6-16); Aspartate Aminotrans (AST/SGOT 9 U/L (12-37); Bilirubin, Total 0.2 mg/dL (0.1-1.0); Blood Urea Nitrogen 19 mg/dL (8-24); Bun/Creatinine Ratio 32.2 (12.0-20.0); CO2, Blood 26 mmol/L (21-32); Chloride, Blood 107 mmol/L (98-108); Creatinine, Blood 0.59 mg/dL (0.40-1.00); Globulin, Blood 3.4 g/dL (2.2-4.0); Glomerular Filtration Rate >60 (60-); Glucose, Blood 228 mg/dL (70-99); Potassium, Blood 3.1 mmol/L (3.5-5.5); Sodium, Blood 140 mmol/L (136-145); Total Protein, Blood 5.9 g/dL (6.4-8.2)
--- NOTE | 2019-07-02 06:04 | NUR ---
SHIFT SUMMARY PT SLEEPING IN ROOM COMFORTABLY AT THIS TIME. NO ACUTE CHANGES IN STATSU SINCE ARRIVAL. PT SLEPT WELL AND RESP EVEN UNLABORED ON RA UPON ARRIVAL W/ SATS >92%. PT WEARS 2L O2 VIA NC DURING SLEEP D/T CARLOS. BLOOD SUGARS WERE CHECKED Q4HR AND MEDICATER PER EMAR. PT CBG TRENDING DOWN BUT REMAINING IN LOW 200'S. PT DENIED NEEDS. DR TREVINO IN TO SEE PT AND GAVE ORDERS FOR DIET AND NPO FOR PROCEDURE LATE AFTERNOON. PT TO BE NPO BY 1400. DENIES CP, SOB, AND N/V AT THIS TIME. CALL LIGHT IN REACH.
--- NOTE | 2019-07-02 07:58 | NUR ---
NURSING PCU DAYSHIFT: Assumed care of pt at approx 0700. A/O, pleasant, cooperative w/care. Denies any pain/discomfort. General weakness noted, able to ambulate and transfer w/one staff assist. Skin is fragile w/scattered scabs noted to ext's and upper back. Tele in place, ST, no c/o CP/pressure, SBP 180's prior to a.m. meds, no noted edema. L/S cta t/o, O2 sat low to mid 90's on RA though pt has been using NC during sleep and w/exertion, no noted cough, denies dyspnea at rest. Abd SNT, BT+, reported intermittent nausea though denies at this time, voiding w/o difficulty. PIV x2, NS infusing at 125cc/hr. No s/s of acute distress at this time. PRN BP med to be administered as ordered. Plan for scope this afternoon, pt to be NPO after breakfast. Call light in reach and pt has demonstrated ability to use w/o difficulty. PMD notified of K+ levels, new d/o received. Cont to monitor for any changes.
[2019-07-02 08:00] LABS: Source, Urine Clean Catch
[2019-07-02 08:07] LABS: Bilirubin, Urine Neg (Neg); Blood, Urine 2+ (Neg); Glucose Qualitative, Urine 4+ (Neg); Ketones, Urine 3+ (Neg); Leukocyte Esterase, Urine Neg (Neg); Nitrite, Urine Neg (Neg); Protein, Urine 3+ (Neg); Specific Gravity, Urine 1.015 (1.003-1.022); Urobilinogen, Urine NORM (Normal)
[2019-07-02 08:29] LABS: Appearance, Urine Clear (Clear); Color, Urine Yellow (P-Yellow)
[2019-07-02 08:32] LABS: Bacteria Mod /hpf; Squamous Epithelial Cells Few /hpf (Few); Yeast/Fungi Urine Few /hpf
--- NOTE | 2019-07-02 18:47 | NUR ---
History, Chart, Medications and Allergies reviewed before start of procedure. Lungs clear T/O to Auscultation. Patient confirms NPO status and agrees with scheduled surgery. Pre-Op teaching done. Pt verbalizes understanding.
--- NOTE | 2019-07-02 18:53 | NUR ---
07/02/19 1854 Julia Alicea History, Chart, Medications and Allergies reviewed before start of procedure. MONITOR INTACT WITH CONTINUOUS PULSE OXIMETRY AND INTERMITTENT BP. O2 VIA N/C INTACT THROUGHOUT SEDATION/PROCEDURE.
[2019-07-03 03:49] LABS: BASOPHILS ABSOLUTE AUTO 0.02 K/mm3 (0.00-0.23); BASOPHILS PERCENT AUTO 0 % (0-2); EOSINOPHILS ABSOLUTE AUTO 0.02 K/mm3 (0.00-0.68); EOSINOPHILS PERCENT AUTO 0 % (0-6); Hematocrit 36.2 % (33.0-51.0); Hemoglobin 11.9 g/dL (11.5-16.0); IMMATURE GRAN ABSOLUTE AUTO 0.01 K/mm3 (0.00-0.10); IMMATURE GRAN PERCENT AUTO 0 % (0-1); LYMPHOCYTES PERCENT AUTO 13 % (21-46); MONOCYTES PERCENT AUTO 12 % (4-13); Mean Corpuscular HGB 28.7 pg (26.0-34.0); Mean Corpuscular HGB Conc 32.9 g/dL (31.5-36.5); Mean Corpuscular Volume 87 fL (80-100); Mean Platelet Volume 9.6 fL (9.1-12.4); NEUTROPHILS ABSOLUTE AUTO 5.14 K/mm3 (1.96-9.15); NEUTROPHILS PERCENT AUTO 75 % (41-73); Platelet Count 174 K/mm3 (150-400); RDW Coefficient Variation 12.4 % (11.7-14.2); RDW Standard Deviation 39.8 fL (35.1-46.3); Red Blood Cell Count 4.14 M/mm3 (3.80-5.20); White Blood Cell Count 6.89 K/mm3 (4.00-11.30)
[2019-07-03 04:06] LABS: Anion Gap 7 mmol/L (6-16); Blood Urea Nitrogen 8 mg/dL (8-24); Bun/Creatinine Ratio 16.8 (12.0-20.0); CO2, Blood 31 mmol/L (21-32); Calcium, Blood 7.5 mg/dL (8.5-10.1); Chloride, Blood 99 mmol/L (98-108); Creatinine, Blood 0.48 mg/dL (0.40-1.00); Glomerular Filtration Rate >60 (60-); Glucose, Blood 151 mg/dL (70-99); Potassium, Blood 2.7 mmol/L (3.5-5.5); Sodium, Blood 137 mmol/L (136-145)
--- NOTE | 2019-07-03 05:21 | NUR ---
SHIFT SUMMARY PT RESTING IN ROOM COMFORTABLY AT THIS TIME. NO ACUTE CHANGES IN STATUS T/O NIGHT. PT SLEPT WELL IN PERIODS T/O NIGHT. PT HAD ONE EPISODE OF NAUSEA AFTER ARRIVAL FROM EGD, WAS MEDICATED PER EMAR. PT SINCE WAS ABKLE TO TOLERATE CLEAR LIQUID DIET AND ADVANCED TO FULL LIQUID. PT REPORTS NOT NAUSEOUS ANYMORE BUT FEELS LIKE THERE IS MUCOUS IN HER THROAT. PT BACK TO SIPPING WATER AND SPRITE AT THIS TIME. RESP EVEN UNLABNORED ON RA W/ SATS >92%. DENIES CP OR SOB. DENIES OTHER NEEDS. PT ABLE TO STAND AND MOVE TO BSC W/ MINIAL SBA. CALL LIGHT IN REACH.
--- NOTE | 2019-07-03 10:00 | NUR ---
PT PLEASANT COOP A.O. DENIES PAIN. STATES SOME WEAKNESS, BUT IMPROVING. H/R REG, NO MURMER NOTED. PER TELE S TACH AT 102. LUNGS CLEAR, RESP EASY, UNLABORED. ON R/A. ABT X4 LAST BM THIS AM. STATES LOOSE FOR LAST TWO DAYS. VOIDS 1 ASST TO BATHROOM. BED IN LOW POSITION, CALL LITE IN REACH , CALLS APPRP
--- NOTE | 2019-07-03 14:34 | NUR ---
CALLED DR FOR LOOSE STOOL DIAARRHEA PER PT. USUALLY TAKES IMMODIUM. DR REYESED ORDERS FOR IMMODIUM.
--- NOTE | 2019-07-03 18:32 | NUR ---
PT PLEASANT TODAY. NO C/O PAIN. DID C/O LOOSE STOOL, IMMODIUM STARTED. TOOK SHOWER TODAY. DENIES EMESIS TODAY. STATES WEAKNESS IMPROVING. NO OTHER CONCERNS AT THIS TIME. BED IN LOW POSITION, CALL LITE IN REACH. CALLS APPROP
--- NOTE | 2019-07-03 22:00 | NUR ---
ASSUMED CARE OF PATIENT AT APPROXIMATELY 1900 FROM MITCH Breaux RN. PATIENT ALERT AND ORIENTED; FLAT AT TIMES; SOFT SPOKEN. PATIENT DENIES PAIN, NUMBNESS, TINGLING, DIZZINESS AND NAUSEA. PATIENT HAS BEEN HAVING DIARRHEA ALL DAY; INCONTINENT ONCE OF STOOL; ATTENDS IN PLACE. STOOL IS LIQUID LOOSE AND BROWN; IMMODIUM GIVEN PRN; PATIENT REPORTS HX OF IBS. DR. TREVINO AT BEDSIDE SHORTLY AFTER 1900; PATIENT REPORTS SHE DOESNT WANT TO ADVANCE DIET TO PUREE YET BUT REQUESTS MASHED POTATOES TO "COAT HER STOMACH". NSR/ST ON TELE; OXYGEN SATURATION ABOVE 90% ON ROOM AIR. IVF INFUSING PER ORDER. PATIENT CURRENTLY RESTING IN BED; CALL LIGHT IN REACH; BED IN LOWEST POSISTION; BED ALARM ON; WILL CONTINUE TO MONITOR AND ASSESS UNTIL END OF SHIFT.
[2019-07-04 00:23] LABS: Campylobacter Sp Not Detected (NOT DETECT)
[2019-07-04 00:24] LABS: Adenovirus F 40/41 Not Detected (NOT DETECT); Astrovirus Not Detected (NOT DETECT); Cryptosporidium Not Detected (NOT DETECT); Cyclospora Cayetanensis Not Detected (NOT DETECT); E. Coli O157 Not Detected (NOT DETECT); Entamoeba Histolytica Not Detected (NOT DETECT); Enteroaggregative E. coli-EAEC Not Detected (NOT DETECT); Enteropathogenic E. coli-EPEC Not Detected (NOT DETECT); Enterotoxigenic E. coli-ETEC Not Detected (NOT DETECT); Giardia Lamblia Not Detected (NOT DETECT); Norovirus GI/GII Not Detected (NOT DETECT); Plesiomonas Shigelloides Not Detected (NOT DETECT); Rotavirus A Not Detected (NOT DETECT); Salmonella Sp Detected (NOT DETECT); Sapovirus Not Detected (NOT DETECT); Shiga Toxin-prod E. coli-STEC Not Detected (NOT DETECT); Shigella/Enteroin E. coli-EIEC Not Detected (NOT DETECT); Vibrio Cholerae Not Detected (NOT DETECT); Vibrio Sp Not Detected (NOT DETECT); Yersinia Enterocolitica Not Detected (NOT DETECT)
[2019-07-04 03:50] LABS: BASOPHILS ABSOLUTE AUTO 0.02 K/mm3 (0.00-0.23); BASOPHILS PERCENT AUTO 0 % (0-2); EOSINOPHILS ABSOLUTE AUTO 0.08 K/mm3 (0.00-0.68); EOSINOPHILS PERCENT AUTO 1 % (0-6); Hematocrit 35.4 % (33.0-51.0); Hemoglobin 11.7 g/dL (11.5-16.0); IMMATURE GRAN ABSOLUTE AUTO 0.02 K/mm3 (0.00-0.10); IMMATURE GRAN PERCENT AUTO 0 % (0-1); LYMPHOCYTES ABSOLUTE AUTO 1.28 K/mm3 (0.84-5.20); LYMPHOCYTES PERCENT AUTO 19 % (21-46); MONOCYTES ABSOLUTE AUTO 0.95 K/mm3 (0.16-1.47); MONOCYTES PERCENT AUTO 14 % (4-13); Mean Corpuscular HGB 28.5 pg (26.0-34.0); Mean Corpuscular HGB Conc 33.1 g/dL (31.5-36.5); Mean Corpuscular Volume 86 fL (80-100); Mean Platelet Volume 10.1 fL (9.1-12.4); NEUTROPHILS ABSOLUTE AUTO 4.24 K/mm3 (1.96-9.15); NEUTROPHILS PERCENT AUTO 64 % (41-73); Platelet Count 189 K/mm3 (150-400); RDW Coefficient Variation 12.2 % (11.7-14.2); RDW Standard Deviation 38.8 fL (35.1-46.3); Red Blood Cell Count 4.11 M/mm3 (3.80-5.20); White Blood Cell Count 6.59 K/mm3 (4.00-11.30)
[2019-07-04 04:06] LABS: Anion Gap 7 mmol/L (6-16); Blood Urea Nitrogen 5 mg/dL (8-24); Bun/Creatinine Ratio 10.6 (12.0-20.0); CO2, Blood 29 mmol/L (21-32); Calcium, Blood 7.4 mg/dL (8.5-10.1); Chloride, Blood 101 mmol/L (98-108); Creatinine, Blood 0.47 mg/dL (0.40-1.00); Glomerular Filtration Rate >60 (60-); Glucose, Blood 111 mg/dL (70-99); Potassium, Blood 2.6 mmol/L (3.5-5.5); Sodium, Blood 137 mmol/L (136-145)
--- NOTE | 2019-07-04 06:28 | NUR ---
PATIENT SLEPT ABOUT AN HOUR OR TWO; REPORTS THIS MORNING UNABLE TO SLEEP DUE TO NOT HAVING SLEEP AID. PATIENT UP ABOUT EVERY HOUR TO URINATE OR HAVE BM DIARRHEA; STOOL BACK POSISTIVE FOR SALMONELLA. PATIENT IV LEAKING; NEW IV PLACED. CALLED DR. DELUCA TO REPORT POTASSIUM OF 2.6; ORDERS RECIEVED. WILL CONTINUE TO MONITOR AND ASSESS UNTIL END OF SHIFT.
--- NOTE | 2019-07-04 08:00 | NUR ---
PT PLEASANT COOP A/O. QUIET. DENIES PAIN. H/R REG, NO MURMER NOTED. PER TELE S TACH AT 102. LUNGS CLEAR, RESP EASY, UNLABORED. ON R.A. BT X4 ALST BM TODAY. STILL DIARRHEA, STATES IBS. IN GOWN UP PRECAUTIONS FOR SALMENELLA STOOL. VOIDS BSC. OCC INCONT. SBA. BED IN LOW POSITION, CALL LITE IN REACH, CALLS APPROP. DR HAMIDA JACOBS D/C IVF. AND PLACE REG ADA DIET. MOVE TO MEDICAL NO TELE.
--- NOTE | 2019-07-04 14:49 | NUR ---
1300 CALLED REPORT TO YENNY OKEEFE RN. MEDICAL FLOOR. TO ROOM 302 AT 1330 BY TANVI.
--- NOTE | 2019-07-04 17:08 | NUR ---
ASSUMED CARE FOR THIS PT, TRANSFERED FROM PCU. PT A/O, PLESANT AND COOPERATIVE. PT REPORTS NO PAIN AT THIS TIME. PT AMBULATED TO RESTROOM WITH WALKER TWICE DURING THIS SHIFT. PT USES CALL LIGHT APPROPRIATLY
--- NOTE | 2019-07-05 04:16 | NUR ---
SHIFT SUMMARY PT CONTINUES TO HAVE LOOSE STOOLS INTERMITTENTLY T/O SHIFT. MEDICATED X1 WITH IMMODIUM PER ORDERS PER PT REQUEST. PT INCONTINENT OF STOOL AND URINE, BUT IS ABLE TO MAKE IT TO THE BSC SOMETIMES. PT A/OX4, PLESANT WITH CARE. SHE DENIES PAIN, AND HAS NOT HAD ANY NAUSEA THIS SHIFT. WILL CONTINUE TO MONITOR AND REPORT TO ONCOMING RN.
[2019-07-05 04:28] LABS: BASOPHILS ABSOLUTE AUTO 0.02 K/mm3 (0.00-0.23); BASOPHILS PERCENT AUTO 0 % (0-2); EOSINOPHILS ABSOLUTE AUTO 0.11 K/mm3 (0.00-0.68); EOSINOPHILS PERCENT AUTO 2 % (0-6); Hematocrit 37.6 % (33.0-51.0); Hemoglobin 12.2 g/dL (11.5-16.0); IMMATURE GRAN ABSOLUTE AUTO 0.01 K/mm3 (0.00-0.10); IMMATURE GRAN PERCENT AUTO 0 % (0-1); LYMPHOCYTES ABSOLUTE AUTO 1.54 K/mm3 (0.84-5.20); LYMPHOCYTES PERCENT AUTO 26 % (21-46); MONOCYTES PERCENT AUTO 14 % (4-13); Mean Corpuscular HGB 28.6 pg (26.0-34.0); Mean Corpuscular HGB Conc 32.4 g/dL (31.5-36.5); Mean Corpuscular Volume 88 fL (80-100); Mean Platelet Volume 10.2 fL (9.1-12.4); NEUTROPHILS ABSOLUTE AUTO 3.41 K/mm3 (1.96-9.15); NEUTROPHILS PERCENT AUTO 58 % (41-73); Platelet Count 194 K/mm3 (150-400); RDW Coefficient Variation 12.5 % (11.7-14.2); RDW Standard Deviation 39.9 fL (35.1-46.3); Red Blood Cell Count 4.26 M/mm3 (3.80-5.20); White Blood Cell Count 5.89 K/mm3 (4.00-11.30)
[2019-07-05] MEDS ORDERED: ACET325 PO (14:52)
[2019-07-05] MEDS ORDERED: Oyster Shell C500 MG PO (14:54)
[2019-07-05] MEDS ORDERED: FLUTICASONE-SA1 EAC1 INH (14:56)
[2019-07-05] MEDS ORDERED: Anti-Diarrheal2 MG PO (14:58)
[2019-07-05] MEDS ORDERED: ONDA4ODT MM (15:00)
[2019-07-05] MEDS ORDERED: POTCHL20ER PO (15:01)
--- NOTE | 2019-07-05 15:46 | NUR ---
PT DISCHARGED HOME AT 1540. PT LEFT UNIT VIA WHEELCHAIR. PT IV REMOVED. DISCHARGE INSTRUCTIONS REVIEWED. NO QUESTIONS AT THIS TIME
== END 2019-07-05 15:33 | disposition home or self-care (01) | DRG 380 ==
LOC: ER 10:13 → ERHOLD 14:21 → PCU 14:21 → MEDS 07-04 13:32 → ENPENDDIS 07-05 10:59 → MEDS 07-05 15:33
PROVIDERS: Emergency Medicine; Family Medicine; Internal Medicine; Internal Medicine Gastroenterology; Nurse Practitioner Acute Care; ADMIT Family Medicine
PROC: 0DB68ZX Excision of Stomach, Via Natural or Artificial Opening Endoscopic, Diagnostic (ICD-10-PCS; principal; 2019-07-02 17:00)
DX: K22.11 Ulcer of esophagus with bleeding (principal); E11.10 Type 2 diabetes mellitus with ketoacidosis without coma; R65.10 Systemic inflammatory response syndrome (SIRS) of non-infectious origin without acute organ dysfunction; A02.9 Salmonella infection, unspecified; Z79.4 Long term (current) use of insulin; J44.9 Chronic obstructive pulmonary disease, unspecified; G47.33 Obstructive sleep apnea (adult) (pediatric); R82.71 Bacteriuria; M79.7 Fibromyalgia; Z99.81 Dependence on supplemental oxygen; E11.51 Type 2 diabetes mellitus with diabetic peripheral angiopathy without gangrene; I10 Essential (primary) hypertension; F32.9 Major depressive disorder, single episode, unspecified; R21 Rash and other nonspecific skin eruption
CPT/HCPCS: 0097U; 36415; 74177; 80048; 80053; 81001; 82010; 82803; 82947; 83605; 83735; 84100; 85014; 85018; 85025; 85610; 86850; 86900; 86901; 87040; 87086; 88305; 93005; 93010; 94640; 94760; 96361; 96365-59; 96366; 96375; 96376; 97110; 97116; 97161; 97165; 97530; 99285-25; A9270-GY; C9113; G0480; J1815; J2405; J2550; J2704; J2765; J3475; J3480; J7030; J7120; Q9967

== ENCOUNTER 2019-09-16 09:49 | Emergency (ER) | payer OTHER ==
[~2019-09-16] VITALS: Ht 160 cm; Wt 71.2 kg
[~2019-09-16 09:49] MED LIST changes: +ACET325 PO; +Anti-Diarrheal2 MG PO; +FLUTICASONE-SA1 EAC1 INH; +ONDA4ODT MM; +Oyster Shell C500 MG PO
[2019-09-16 10:16] LABS: BASOPHILS ABSOLUTE AUTO 0.04 K/mm3 (0.00-0.23); BASOPHILS PERCENT AUTO 1 % (0-2); EOSINOPHILS ABSOLUTE AUTO 0.13 K/mm3 (0.00-0.68); EOSINOPHILS PERCENT AUTO 2 % (0-6); Hematocrit 37.1 % (33.0-51.0); Hemoglobin 11.8 g/dL (11.5-16.0); IMMATURE GRAN ABSOLUTE AUTO 0.02 K/mm3 (0.00-0.10); IMMATURE GRAN PERCENT AUTO 0 % (0-1); LYMPHOCYTES ABSOLUTE AUTO 2.17 K/mm3 (0.84-5.20); LYMPHOCYTES PERCENT AUTO 34 % (21-46); MONOCYTES PERCENT AUTO 9 % (4-13); Mean Corpuscular HGB 28.6 pg (26.0-34.0); Mean Corpuscular HGB Conc 31.8 g/dL (31.5-36.5); Mean Corpuscular Volume 90 fL (80-100); Mean Platelet Volume 10.2 fL (9.1-12.4); NEUTROPHILS PERCENT AUTO 54 % (41-73); Platelet Count 241 K/mm3 (150-400); RDW Coefficient Variation 12.3 % (11.7-14.2); RDW Standard Deviation 40.9 fL (35.1-46.3); Red Blood Cell Count 4.12 M/mm3 (3.80-5.20); White Blood Cell Count 6.36 K/mm3 (4.00-11.30)
[2019-09-16 10:28] LABS: Alanine Aminotransfer (ALT/SGP 29 U/L (12-78); Albumin, Blood 3.3 g/dL (3.4-5.0); Albumin/Globulin Ratio 0.8 (0.8-1.8); Alk Phos 124 U/L (50-136); Anion Gap 6 mmol/L (6-16); Aspartate Aminotrans (AST/SGOT 21 U/L (12-37); Bilirubin, Total 0.4 mg/dL (0.1-1.0); Blood Urea Nitrogen 17 mg/dL (8-24); CO2, Blood 28 mmol/L (21-32); Calcium, Blood 8.6 mg/dL (8.5-10.1); Chloride, Blood 102 mmol/L (98-108); Creatinine, Blood 0.59 mg/dL (0.40-1.00); Glomerular Filtration Rate >60 (60-); Glucose, Blood 357 mg/dL (70-99); Sodium, Blood 136 mmol/L (136-145); Total Protein, Blood 7.3 g/dL (6.4-8.2)
[2019-09-16 10:30] LABS: International Normalized Ratio 1.01; Prothrombin Time Results 10.7 Sec (9.7-11.5)
[2019-09-16 11:26] LABS: Source, Urine Voided
[2019-09-16 11:31] LABS: Bilirubin, Urine Neg (Neg); Blood, Urine Neg (Neg); Glucose Qualitative, Urine 4+ (Neg); Ketones, Urine Neg (Neg); Leukocyte Esterase, Urine Neg (Neg); Nitrite, Urine Neg (Neg); Protein, Urine Neg (Neg); Urobilinogen, Urine NORM (Normal)
[2019-09-16 11:32] LABS: Appearance, Urine Clear (Clear); Color, Urine Yellow (P-Yellow)
[2019-10-21] MEDS ORDERED: CYAN500 PO (13:56)
[2019-10-21] MEDS ORDERED: CILO100 PO (13:56)
[2019-10-21] MEDS ORDERED: CYCL10 PO (13:57)
== END 2019-09-16 12:02 | disposition home or self-care (01) ==
LOC: ER 09:49
PROVIDERS: Emergency Medicine
DX: K29.70 Gastritis, unspecified, without bleeding (principal); I48.91 Unspecified atrial fibrillation; E11.40 Type 2 diabetes mellitus with diabetic neuropathy, unspecified; J44.9 Chronic obstructive pulmonary disease, unspecified; F32.9 Major depressive disorder, single episode, unspecified; Z88.1 Allergy status to other antibiotic agents; Z88.0 Allergy status to penicillin; Z88.2 Allergy status to sulfonamides; Z88.8 Allergy status to other drugs, medicaments and biological substances; Z79.899 Other long term (current) drug therapy; Z79.4 Long term (current) use of insulin; Z79.51 Long term (current) use of inhaled steroids; Z86.73 Personal history of transient ischemic attack (TIA), and cerebral infarction without residual deficits; Z87.891 Personal history of nicotine dependence
CPT/HCPCS: 36415; 74177; 80053; 81003; 82272; 85025; 85610; 85730; 93005; 93010; 96365-59; 96375; 99284-25; A9270-GY; C9113; J2405; J7030; Q9967

== ENCOUNTER 2019-10-22 07:25 | Day surgery (SDC) | payer OTHER ==
[~2019-10-22] VITALS: Ht 160 cm; Wt 69.5 kg
--- NOTE | 2019-10-22 08:10 | NUR ---
History, Chart, Medications and Allergies reviewed before start of procedure. Patient confirms NPO status and agrees with scheduled surgery. Patient States Post-Procedure ride home has been arranged.
--- NOTE | 2019-10-22 08:48 | NUR ---
10/22/19 0848 Pooja Castellanos PATIENT DETERMINED TO BE ASA APPROPRIATE FOR MODERATE SEDATION PRIOR TO START OF PROCEDURE BY DR. MCCORD. 3-LEAD EKG REVIEWED WITH PHYSICIAN PRIOR TO START OF PROCEDURE. PATIENT CONFIRMS NPO STATUS AND AGREES WITH SCHEDULED PROCEDURE. History, Chart, Medications and Allergies reviewed before start of procedure. MONITOR INTACT WITH CONTINUOUS PULSE OXIMETRY AND INTERMITTENT BP. O2 VIA N/C INTACT THROUGHOUT SEDATION/PROCEDURE. HURRICAINE SPRAY TO OROPHARYX. Bite Block Placed IMMEDIATELY PRESEDATION.
== END 2019-10-22 09:51 | disposition home or self-care (01) ==
LOC: ORSCMMR 07:25 → ORD 08:30 → ORSCMMR 08:30
PROVIDERS: Internal Medicine Gastroenterology
PROC: 0DB98ZX Excision of Duodenum, Via Natural or Artificial Opening Endoscopic, Diagnostic (ICD-10-PCS; principal; 2019-10-22 08:30)
PROC: 0DB48ZX Excision of Esophagogastric Junction, Via Natural or Artificial Opening Endoscopic, Diagnostic (ICD-10-PCS; principal; 2019-10-22 08:30)
PROC: 0DB88ZX Excision of Small Intestine, Via Natural or Artificial Opening Endoscopic, Diagnostic (ICD-10-PCS; principal; 2019-10-22 08:30)
DX: K22.70 Barrett's esophagus without dysplasia (principal); R10.9 Unspecified abdominal pain; E11.9 Type 2 diabetes mellitus without complications; J44.9 Chronic obstructive pulmonary disease, unspecified; I73.9 Peripheral vascular disease, unspecified; K20.9 Esophagitis, unspecified; I82.402 Acute embolism and thrombosis of unspecified deep veins of left lower extremity; Z79.899 Other long term (current) drug therapy; Z79.84 Long term (current) use of oral hypoglycemic drugs
CPT/HCPCS: 82947; 88305; 88342; J2250; J3010; J7120

== ENCOUNTER 2019-11-26 16:10 | Emergency (ER) | payer OTHER ==
[~2019-11-26] VITALS: Ht 160 cm; Wt 69.4 kg
== END 2019-11-26 18:58 | disposition home or self-care (01) ==
LOC: ER 16:10
DX: M25.572 Pain in left ankle and joints of left foot (principal); E11.40 Type 2 diabetes mellitus with diabetic neuropathy, unspecified; F32.9 Major depressive disorder, single episode, unspecified; J44.9 Chronic obstructive pulmonary disease, unspecified; I48.91 Unspecified atrial fibrillation; Z86.73 Personal history of transient ischemic attack (TIA), and cerebral infarction without residual deficits; Z87.891 Personal history of nicotine dependence; Z79.899 Other long term (current) drug therapy; Z79.4 Long term (current) use of insulin
CPT/HCPCS: 73590; 73610; 99283-25

== ENCOUNTER 2019-11-29 07:23 | Emergency (ER) | payer OTHER ==
[~2019-11-29] VITALS: Ht 160 cm; Wt 69.4 kg
== END 2019-11-29 09:50 | disposition home or self-care (01) ==
LOC: ER 07:23
DX: R60.0 Localized edema (principal); J44.9 Chronic obstructive pulmonary disease, unspecified; E11.40 Type 2 diabetes mellitus with diabetic neuropathy, unspecified; F32.9 Major depressive disorder, single episode, unspecified; I48.91 Unspecified atrial fibrillation; Z86.73 Personal history of transient ischemic attack (TIA), and cerebral infarction without residual deficits; Z87.891 Personal history of nicotine dependence; Z88.0 Allergy status to penicillin; Z88.8 Allergy status to other drugs, medicaments and biological substances; Z88.1 Allergy status to other antibiotic agents; Z88.2 Allergy status to sulfonamides; Z79.84 Long term (current) use of oral hypoglycemic drugs; Z79.899 Other long term (current) drug therapy; Z79.4 Long term (current) use of insulin; Z79.891 Long term (current) use of opiate analgesic
CPT/HCPCS: 93971; 99284-25; A9270

== ENCOUNTER 2019-12-11 07:07 | Emergency (ER) | payer OTHER ==
[~2019-12-11] VITALS: Ht 160 cm; Wt 69.4 kg
[2019-12-11] MEDS ORDERED: ACETAMINOPHEN500 MG PO (08:27)
== END 2019-12-11 09:25 | disposition home or self-care (01) ==
LOC: ER 07:07
DX: R53.1 Weakness (principal); R10.2 Pelvic and perineal pain; E11.51 Type 2 diabetes mellitus with diabetic peripheral angiopathy without gangrene; K21.9 Gastro-esophageal reflux disease without esophagitis; J44.9 Chronic obstructive pulmonary disease, unspecified; I10 Essential (primary) hypertension; F32.9 Major depressive disorder, single episode, unspecified; Z86.73 Personal history of transient ischemic attack (TIA), and cerebral infarction without residual deficits; M79.7 Fibromyalgia; I48.91 Unspecified atrial fibrillation; Z87.891 Personal history of nicotine dependence; Z79.4 Long term (current) use of insulin; Z79.51 Long term (current) use of inhaled steroids; Z79.899 Other long term (current) drug therapy; Z88.0 Allergy status to penicillin; Z88.1 Allergy status to other antibiotic agents; Z88.2 Allergy status to sulfonamides; Z88.8 Allergy status to other drugs, medicaments and biological substances; W19.XXXA Unspecified fall, initial encounter
CPT/HCPCS: 73502; 96374; 99284-25; J1885

== ENCOUNTER 2020-07-11 08:47 | Day surgery (SDC) | payer OTHER ==
[~2020-07-11] VITALS: Ht 160 cm; Wt 81.1 kg
[~2020-07-11 08:47] MED LIST changes: +ACETAMINOPHEN500 MG PO; +Atarax10 MG PO; +BASAGLAR K100 UNIT/1 SC; +BUDESONIDE-FO10.2 G2 INH; +CALCIUM 600 +1 EA11 PO; +FURO20 PO; +INCRUSE ELLI62.5 MC1 INH; +INSULIN LI100 UNIT/5 SC; +MAG DELAY64 MG PO; +METO50ER PO; +NOVOLOG100 UNIT/3 SC; +PANT40 PO; +SENNA LAXATIVE8.6 MG PO; +TROSPIUM CHLORI20 MG PO; +VITAMIN B12 PO; +acidophilus PO
--- NOTE | 2020-07-11 09:48 | NUR ---
History, Chart, Medications and Allergies reviewed before start of procedure. Patient confirms NPO status and agrees with scheduled surgery. Patient States Post-Procedure ride home has been arranged with [facility].
--- NOTE | 2020-07-11 10:15 | NUR ---
REPORTS TAKING ALL OF COLON PREP WITH CLEAR RESULTS. NOTES THAT THERE ARE "PARTICLES" IN LAST BM. PATIENT USED THE BR IN SDS TO SHOW NURSE, BUT ALL THAT WAS SEEN IN TOILET WAS CLEAR.
[2020-07-11] MEDS ORDERED: Atarax10 MG PO (10:31)
[2020-07-11] MEDS ORDERED: GABA300 PO (10:31)
[2020-07-11] MEDS ORDERED: INCRUSE ELLIPTA INH (10:32)
[2020-07-11] MEDS ORDERED: INSULIN LI100 UNIT/6 SC (10:33)
[2020-07-11] MEDS ORDERED: LISI10 PO (10:34)
--- NOTE | 2020-07-11 10:34 | NUR ---
07/11/20 1034 Sean Lorenz History, Chart, Medications and Allergies reviewed before start of procedure.MONITOR INTACT WITH CONTINUOUS PULSE OXIMETRY AND INTERMITTENT BP.3-LEAD EKG REVIEWED WITH PHYSICIAN PRIOR TO START OF PROCEDURE.O2 VIA N/C INTACT THROUGHOUT SEDATION/PROCEDURE.
[2020-07-11] MEDS ORDERED: [UNRECOGNIZED DRUG - OTHER] PO (10:36)
[2020-07-11] MEDS ORDERED: CAL PO (10:36)
[2020-07-11] MEDS ORDERED: MONT10T (10:36)
[2020-07-11] MEDS ORDERED: METO50ER PO (10:36)
[2020-07-11] MEDS ORDERED: PANT40 (10:37)
[2020-07-11] MEDS ORDERED: NIFE60ER PO (10:37)
[2020-07-11] MEDS ORDERED: POTA10T (10:38)
[2020-07-11] MEDS ORDERED: QUET25 PO (10:38)
[2020-07-11] MEDS ORDERED: POTA10T PO (10:38)
[2020-07-11] MEDS ORDERED: SENNA LAXATIVE8.6 MG PO (10:38)
[2020-07-11] MEDS ORDERED: Vitamin B-121000 MCG (10:39)
[2020-07-11] MEDS ORDERED: TROSPIUM CHLORI20 M1 PO (10:39)
[2020-07-11] MEDS ORDERED: SERT50 (10:39)
[2020-07-11] MEDS ORDERED: ATOR20 PO (10:40)
[2020-07-11] MEDS ORDERED: BISA10S PR (10:42)
[2020-07-11] MEDS ORDERED: BASAGLAR KWIKPEN SC (10:42)
[2020-07-11] MEDS ORDERED: CILO100 PO (10:43)
[2020-07-11] MEDS ORDERED: FLUT1DIS5 INH (10:44)
[2020-07-11] MEDS ORDERED: FURO20 PO (10:45)
--- NOTE | 2020-07-11 11:44 | NUR ---
1130- UP TO DRESS. GAIT CONSISTANT WITH BASELINE. TRANSFERED FROM BED TO HER W/C WITH ONE PERSON STAND-BY ASSIST. TOLERATING COFFEE. VSS. BREATHING RA. NO C/O. Discharge instructions reviewed with patient. Patient verbalizes understanding. Copy given to patient to take home. Patient States Post-Procedure ride home has been arranged with [facility].
== END 2020-07-11 11:38 | disposition home or self-care (01) ==
LOC: ORSCMMR 08:47 → ORD 10:00 → ORSCMMR 10:00
PROVIDERS: Internal Medicine Gastroenterology
PROC: 0DJD8ZZ Inspection of Lower Intestinal Tract, Via Natural or Artificial Opening Endoscopic (ICD-10-PCS; principal; 2020-07-11 10:00)
DX: K62.5 Hemorrhage of anus and rectum (principal); E11.9 Type 2 diabetes mellitus without complications; J44.9 Chronic obstructive pulmonary disease, unspecified; I73.9 Peripheral vascular disease, unspecified; I82.409 Acute embolism and thrombosis of unspecified deep veins of unspecified lower extremity; I10 Essential (primary) hypertension; E78.00 Pure hypercholesterolemia, unspecified; Z79.4 Long term (current) use of insulin; Z79.899 Other long term (current) drug therapy
CPT/HCPCS: 82947; J2250; J3010; J7120

== ENCOUNTER 2020-10-29 13:35 | Emergency (ER) | payer OTHER ==
[~2020-10-29] VITALS: Ht 160 cm; Wt 81.2 kg
[~2020-10-29 13:35] MED LIST changes: +BASAGLAR KWIKPEN SC; +BISA10S PR; +CAL PO; +FLUT1DIS5 INH; +INCRUSE ELLIPTA INH; +INSULIN LI100 UNIT/6 SC; +LISI10 PO; +POTA10T; +SERT50; +TROSPIUM CHLORI20 M1 PO; +Vitamin B-121000 MCG; +[UNRECOGNIZED DRUG - OTHER] PO
[2020-10-29 14:10] LABS: BASOPHILS ABSOLUTE AUTO 0.04 K/mm3 (0.00-0.23); BASOPHILS PERCENT AUTO 0 % (0-2); EOSINOPHILS ABSOLUTE AUTO 0.32 K/mm3 (0.00-0.68); EOSINOPHILS PERCENT AUTO 2 % (0-6); Hematocrit 37.1 % (33.0-51.0); Hemoglobin 11.6 g/dL (11.5-16.0); IMMATURE GRAN ABSOLUTE AUTO 0.28 K/mm3 (0.00-0.10); IMMATURE GRAN PERCENT AUTO 2 % (0-1); LYMPHOCYTES ABSOLUTE AUTO 1.54 K/mm3 (0.84-5.20); LYMPHOCYTES PERCENT AUTO 10 % (21-46); MONOCYTES ABSOLUTE AUTO 0.62 K/mm3 (0.16-1.47); MONOCYTES PERCENT AUTO 4 % (4-13); Mean Corpuscular HGB 28.5 pg (26.0-34.0); Mean Corpuscular HGB Conc 31.3 g/dL (31.5-36.5); Mean Corpuscular Volume 91 fL (80-100); Mean Platelet Volume 9.7 fL (9.1-12.4); NEUTROPHILS ABSOLUTE AUTO 12.91 K/mm3 (1.96-9.15); NEUTROPHILS PERCENT AUTO 82 % (41-73); Platelet Count 313 K/mm3 (150-400); RDW Coefficient Variation 13.4 % (11.7-14.2); RDW Standard Deviation 44.9 fL (35.1-46.3); Red Blood Cell Count 4.07 M/mm3 (3.80-5.20); White Blood Cell Count 15.71 K/mm3 (4.00-11.30)
[2020-10-29 14:26] LABS: Alanine Aminotransfer (ALT/SGP 25 U/L (12-78); Albumin, Blood 3.2 g/dL (3.4-5.0); Albumin/Globulin Ratio 0.7 (0.8-1.8); Alk Phos 100 U/L (50-136); Anion Gap 5 mmol/L (6-16); Aspartate Aminotrans (AST/SGOT 18 U/L (12-37); Bilirubin, Total 0.3 mg/dL (0.1-1.0); Blood Urea Nitrogen 17 mg/dL (8-24); Bun/Creatinine Ratio 21.9 (12.0-20.0); CO2, Blood 31 mmol/L (21-32); Calcium, Blood 8.8 mg/dL (8.5-10.1); Chloride, Blood 107 mmol/L (98-108); Creatinine, Blood 0.78 mg/dL (0.40-1.00); Globulin, Blood 4.3 g/dL (2.2-4.0); Glomerular Filtration Rate >60 (60-); Glucose, Blood 58 mg/dL (70-99); Potassium, Blood 3.6 mmol/L (3.5-5.5); Sodium, Blood 143 mmol/L (136-145); Total Protein, Blood 7.5 g/dL (6.4-8.2)
[2020-10-29] MEDS ORDERED: ATOR40TA PO (14:57)
[2020-10-29] MEDS ORDERED: BASAGLAR K100 UNIT/7 SC (14:57)
[2020-10-29] MEDS ORDERED: CILOSTAZOL50 MG PO (14:58)
[2020-10-29] MEDS ORDERED: BISA5EC PO (14:58)
[2020-10-29] MEDS ORDERED: OYSTER SHELL 51 EACH PO (14:58)
[2020-10-29] MEDS ORDERED: FOLI1 PO (14:59)
[2020-10-29] MEDS ORDERED: FLUT1DIS5 INH (14:59)
[2020-10-29] MEDS ORDERED: [UNRECOGNIZED DRUG - CODE] DT (14:59)
[2020-10-29] MEDS ORDERED: Atarax10 MG PO (15:00)
[2020-10-29] MEDS ORDERED: GABA300 PO (15:00)
[2020-10-29] MEDS ORDERED: INCRUSE 62.5 MCG INH (15:00)
[2020-10-29] MEDS ORDERED: Prinivil10 MG PO (15:01)
[2020-10-29] MEDS ORDERED: INSULIN LI100 UNIT/6 SC (15:01)
[2020-10-29] MEDS ORDERED: METO50ER PO (15:01)
[2020-10-29] MEDS ORDERED: MONT10T PO (15:02)
[2020-10-29] MEDS ORDERED: NIFE60ER PO (15:02)
[2020-10-29] MEDS ORDERED: OXYB5 PO (15:02)
[2020-10-29] MEDS ORDERED: DAILY-VITE1 EACH PO (15:02)
[2020-10-29] MEDS ORDERED: POTA10T PO (15:03)
[2020-10-29] MEDS ORDERED: PANT40 PO (15:03)
[2020-10-29] MEDS ORDERED: SERT100 PO (15:04)
[2020-10-29] MEDS ORDERED: Vitamin B-121000 MCG PO (15:04)
[2020-10-29] MEDS ORDERED: Seroquel Xr50 MG PO (15:04)
[2020-10-29] MEDS ORDERED: TORS10 PO (15:04)
[2020-10-29 15:31] LABS: Source, Urine Catheter
[2020-10-29 15:37] LABS: Appearance, Urine Hazy (Clear); Bilirubin, Urine Neg (Neg); Blood, Urine Neg (Neg); Color, Urine Yellow (P-Yellow); Glucose Qualitative, Urine Neg (Neg); Ketones, Urine Neg (Neg); Leukocyte Esterase, Urine 1+ (Neg); Nitrite, Urine Pos (Neg); Protein, Urine Neg (Neg); Urobilinogen, Urine NORM (Normal)
[2020-10-29 16:14] LABS: Bacteria Many /hpf; Red Blood Cells, Urine 0-2 /hpf (0-2); Squamous Epithelial Cells Rare /hpf (Few)
== END 2020-10-29 17:20 | disposition home or self-care (01) ==
LOC: ER 13:35
PROVIDERS: Emergency Medicine; Student in an Organized Health Care Education/Training Program
DX: S82.142A Displaced bicondylar fracture of left tibia, initial encounter for closed fracture (principal); S32.592A Other specified fracture of left pubis, initial encounter for closed fracture; Z79.899 Other long term (current) drug therapy
CPT/HCPCS: 29505; 36415; 51702; 70450; 71045; 72100; 73502; 73562-LT; 80053; 81001; 85025; 87077; 87086; 87186; 96374-59; 96375-59; 99284-25; J1885; J2270; J2405

== ENCOUNTER 2020-10-31 07:57 | Emergency (ER) | payer OTHER ==
[~2020-10-31] VITALS: Ht 160 cm; Wt 81.2 kg
[~2020-10-31 07:57] MED LIST changes: +BASAGLAR K100 UNIT/7 SC; +BISA5EC PO; +CILOSTAZOL50 MG PO; +DAILY-VITE1 EACH PO; +INCRUSE 62.5 MCG INH; +OYSTER SHELL 51 EACH PO; +Seroquel Xr50 MG PO; +TORS10 PO; +Vitamin B-121000 MCG PO; +[UNRECOGNIZED DRUG - CODE] DT
[2020-10-31] MEDS ORDERED: Norco 5-325 Ta1 EACH PO (09:42)
== END 2020-10-31 11:57 | disposition home or self-care (01) ==
LOC: ER 07:57
DX: S32.592A Other specified fracture of left pubis, initial encounter for closed fracture (principal); E11.9 Type 2 diabetes mellitus without complications; J44.9 Chronic obstructive pulmonary disease, unspecified; I10 Essential (primary) hypertension; I48.91 Unspecified atrial fibrillation; Z87.891 Personal history of nicotine dependence
CPT/HCPCS: 96374; 99283-25; J1885

== ENCOUNTER 2020-11-03 11:46 | Emergency (ER) | payer OTHER ==
[~2020-11-03] VITALS: Ht 152.4 cm; Wt 81.2 kg
[2020-11-03] MEDS ORDERED: HYDACE10B PO (13:37)
[2020-11-04] MEDS ORDERED: ACIDOPHILUS1 EAC3 PO (20:32)
[2020-11-04] MEDS ORDERED: [UNRECOGNIZED DRUG - CODE] DT (20:34)
[2020-11-04] MEDS ORDERED: Norco 5-325 Ta1 EACH PO (20:35)
[2020-11-04] MEDS ORDERED: CAL PO (20:38)
[2020-11-04] MEDS ORDERED: [UNRECOGNIZED DRUG - OTHER] PO (20:38)
[2020-11-04] MEDS ORDERED: SENNA LAXATIVE8.6 MG PO (20:40)
[2020-11-04] MEDS ORDERED: Vitamin B-121000 MCG PO (20:41)
[2020-11-04] MEDS ORDERED: DICLOFENAC SOD100 G1 TOP (20:42)
[2020-11-04] MEDS ORDERED: SUMA25 PO (20:44)
[2020-11-04] MEDS ORDERED: MAG6464 MG PO (20:49)
== END 2020-11-03 16:37 | disposition home or self-care (01) ==
LOC: ER 11:46
DX: S32.592A Other specified fracture of left pubis, initial encounter for closed fracture (principal); S82.142A Displaced bicondylar fracture of left tibia, initial encounter for closed fracture; K21.9 Gastro-esophageal reflux disease without esophagitis; J44.9 Chronic obstructive pulmonary disease, unspecified; I10 Essential (primary) hypertension; J45.909 Unspecified asthma, uncomplicated; Z86.73 Personal history of transient ischemic attack (TIA), and cerebral infarction without residual deficits; Z88.0 Allergy status to penicillin; Z88.2 Allergy status to sulfonamides; Z88.1 Allergy status to other antibiotic agents; Z88.8 Allergy status to other drugs, medicaments and biological substances; Z79.4 Long term (current) use of insulin; Z79.899 Other long term (current) drug therapy; W19.XXXA Unspecified fall, initial encounter
CPT/HCPCS: 96374; 96375; 99284-25; J2405; J3010

== ENCOUNTER 2020-11-04 18:56 | Inpatient (IN) | payer OTHER ==
[~2020-11-04] VITALS: Ht 160 cm; Wt 77.5 kg
[~2020-11-04 18:56] MED LIST changes: +HYDACE10B PO
[2020-11-04 19:44] LABS: BASOPHILS ABSOLUTE AUTO 0.05 K/mm3 (0.00-0.23); BASOPHILS PERCENT AUTO 0 % (0-2); EOSINOPHILS ABSOLUTE AUTO 0.44 K/mm3 (0.00-0.68); EOSINOPHILS PERCENT AUTO 4 % (0-6); Hematocrit 33.7 % (33.0-51.0); Hemoglobin 10.6 g/dL (11.5-16.0); IMMATURE GRAN ABSOLUTE AUTO 0.05 K/mm3 (0.00-0.10); IMMATURE GRAN PERCENT AUTO 0 % (0-1); LYMPHOCYTES ABSOLUTE AUTO 2.02 K/mm3 (0.84-5.20); LYMPHOCYTES PERCENT AUTO 16 % (21-46); MONOCYTES ABSOLUTE AUTO 0.97 K/mm3 (0.16-1.47); MONOCYTES PERCENT AUTO 8 % (4-13); Mean Corpuscular HGB 28.6 pg (26.0-34.0); Mean Corpuscular HGB Conc 31.5 g/dL (31.5-36.5); Mean Corpuscular Volume 91 fL (80-100); Mean Platelet Volume 10.4 fL (9.1-12.4); NEUTROPHILS ABSOLUTE AUTO 8.96 K/mm3 (1.96-9.15); NEUTROPHILS PERCENT AUTO 72 % (41-73); Platelet Count 205 K/mm3 (150-400); RDW Coefficient Variation 13.9 % (11.7-14.2); RDW Standard Deviation 46.2 fL (35.1-46.3); White Blood Cell Count 12.49 K/mm3 (4.00-11.30)
[2020-11-04 20:01] LABS: Albumin, Blood 2.6 g/dL (3.4-5.0); Albumin/Globulin Ratio 0.6 (0.8-1.8); Bilirubin, Total 0.4 mg/dL (0.1-1.0); Bun/Creatinine Ratio 31.2 (12.0-20.0); Calcium, Blood 8.9 mg/dL (8.5-10.1); Creatinine, Blood 1.57 mg/dL (0.40-1.00); Potassium, Blood 3.8 mmol/L (3.5-5.5); Total Protein, Blood 6.6 g/dL (6.4-8.2); Troponin I 0.15 ng/mL (0.000-0.040)
[2020-11-04 20:04] LABS: International Normalized Ratio 1.29; Prothrombin Time Results 13.6 Sec (9.7-11.5)
[2020-11-04] MEDS ORDERED: ACIDOPHILUS1 EAC3 PO (20:32)
[2020-11-04] MEDS ORDERED: [UNRECOGNIZED DRUG - CODE] DT (20:34)
[2020-11-04] MEDS ORDERED: Norco 5-325 Ta1 EACH PO (20:35)
[2020-11-04] MEDS ORDERED: CAL PO (20:38)
[2020-11-04] MEDS ORDERED: [UNRECOGNIZED DRUG - OTHER] PO (20:38)
[2020-11-04] MEDS ORDERED: SENNA LAXATIVE8.6 MG PO (20:40)
[2020-11-04] MEDS ORDERED: Vitamin B-121000 MCG PO (20:41)
[2020-11-04] MEDS ORDERED: DICLOFENAC SOD100 G1 TOP (20:42)
[2020-11-04] MEDS ORDERED: SUMA25 PO (20:44)
[2020-11-04] MEDS ORDERED: MAG6464 MG PO (20:49)
[2020-11-05 04:30] LABS: BASOPHILS ABSOLUTE AUTO 0.04 K/mm3 (0.00-0.23); BASOPHILS PERCENT AUTO 0 % (0-2); EOSINOPHILS ABSOLUTE AUTO 0.82 K/mm3 (0.00-0.68); EOSINOPHILS PERCENT AUTO 7 % (0-6); Hematocrit 31.3 % (33.0-51.0); Hemoglobin 10.1 g/dL (11.5-16.0); IMMATURE GRAN ABSOLUTE AUTO 0.04 K/mm3 (0.00-0.10); IMMATURE GRAN PERCENT AUTO 0 % (0-1); LYMPHOCYTES ABSOLUTE AUTO 2.04 K/mm3 (0.84-5.20); LYMPHOCYTES PERCENT AUTO 18 % (21-46); MONOCYTES ABSOLUTE AUTO 1.15 K/mm3 (0.16-1.47); MONOCYTES PERCENT AUTO 10 % (4-13); Mean Corpuscular HGB 28.9 pg (26.0-34.0); Mean Corpuscular HGB Conc 32.3 g/dL (31.5-36.5); Mean Corpuscular Volume 90 fL (80-100); Mean Platelet Volume 10.4 fL (9.1-12.4); NEUTROPHILS ABSOLUTE AUTO 7.23 K/mm3 (1.96-9.15); NEUTROPHILS PERCENT AUTO 64 % (41-73); Platelet Count 203 K/mm3 (150-400); RDW Coefficient Variation 13.9 % (11.7-14.2); RDW Standard Deviation 45.3 fL (35.1-46.3); Red Blood Cell Count 3.49 M/mm3 (3.80-5.20); White Blood Cell Count 11.32 K/mm3 (4.00-11.30)
[2020-11-05 04:49] LABS: Albumin, Blood 2.5 g/dL (3.4-5.0); Albumin/Globulin Ratio 0.7 (0.8-1.8); Bilirubin, Total 0.4 mg/dL (0.1-1.0); Bun/Creatinine Ratio 36.4 (12.0-20.0); Calcium, Blood 8.8 mg/dL (8.5-10.1); Creatinine, Blood 1.51 mg/dL (0.40-1.00); Globulin, Blood 3.8 g/dL (2.2-4.0); Potassium, Blood 3.5 mmol/L (3.5-5.5); Total Protein, Blood 6.3 g/dL (6.4-8.2); Troponin I 0.135 ng/mL (0.000-0.040)
--- NOTE | 2020-11-05 05:23 | NUR ---
SHIFT SUMMARY PT ARRIVED TO THE UNIT AROUND 2214 ON 4 LPM VIA NC WITH O2 SATS 94%. PT REPORTED FEELING SOB. HR TACHY LOW 100'S. BP HYPOTENSIVE LOW 100'S/60'S. O2 SATS REMAINED ABOUT 94 T/O SHIFT WITH PT ON 4LPM NC. PT REPORTS BASELINE OF 2LPM AT NIGHT, RA DURING DAY. PT REPORTS BEING INCONTINENT, NEW ONSET SINCE SHE BROKE HER HIP. SHE ALSO REPORTS BURNING WITH URINATION FROM UTI SHE HAS NOT YET STARTED MEDICATION FOR. DISCUSSED POSSIBLE SURGICAL INTERVENTION FOR TX OF PE'S AND PT REQUESTED TIME TO THINK ABOUT HER DECISION. PT IS ALERT AND ORIENTED. SLOW TO RESPOND AT TIMES . SHE REPORTS PAIN 9/10 IN HER L LEG AND HIP. PRN MEDICATION GIVEN, PT REPOSITIONED. PT REPORTS SOB HAS IMPROVED T/O SHIFT.
--- NOTE | 2020-11-05 12:52 | NUR ---
ECHOCARDIOGRAM COMPLETED
[2020-11-05 13:05] LABS: CPK Creatine Kinase 90 U/L (26-193)
--- NOTE | 2020-11-05 17:54 | NUR ---
PT SUMMARY: PT HAD 10 BEATS RUN OF VTACH THIS AM PT ASYMPTOMATIC, DR HUDSON IS AWARE. VITALS HRR SR AT 100'S, BP SYSTOLIC 120'S, SATS ABOVE 90% ON 2L OF O2, AFEBRILE. PT DENIES CHEST PAIN/PRESSURE/SOB. BUT HAS PAIN ON THE LEFT LOWER LEG AND PUBIS UNABLE TO SIT UP STRAIGHT IN THE BED DUE TO PAIN. PT HAS PAIN MEDS X1 FOR THE SHIFT. LEFT LEG BRACE ON, SKIN/CIRC CHECK GOOD. HEPARIN GTT RUNNING AT 16U/KG/HR, PT ALSO STARTED ON IV ROCEPHIN DUE TO PREVIOUS UTI. NO INTERVENTION DONE TODAY PER DR STROUD AWAITING FOR ECHO RESULT WAS DONE TODAY, INTERVENTION TO POSSIBLY DONE IN AM. PT RECEIVED A BED BATH TODAY WAS ABLE TO TOLERATE TURNING AND ROLLING IN BED, INCONTINENT OF VOIDS. PT REPOSITONED IN BED Q2HR, DIET RESUMED PT REPORTED POOR APPETITE SINCE THE FALL PT HAS BEEN REQUESTING ENSURE FOR MEAL SUBSTITUTE. PT RESTING IN BED, CALL LIGHTS IN REACH WILL REPORT TO ONCOMING SHIFT
--- NOTE | 2020-11-06 05:17 | NUR ---
SHIFT SUMMARY PT REMAINED ON 2.5 LPM VIA NC T/O THE NIGHT WITH O2 SATS IN THE MID 90'S. PT DENIED ANY SOB. PAIN WAS NOT WELL CONTROLLED WITH MEDICATIONS. PT STATED PAIN IN HER HIPS AND L LEG. PAIN WAS SIGNIFICANTLY WORSE WITH ANY MOVEMENT. PT REFUSED REPOSITIONING. PILLOWS WERE PLACED UNDER PT AND ROTATED Q2H TO PREVENT SKIN BREAKDOWN. VITALS WERE STABLE. 120-140'S SYSTOLIC. HR TACHY 110'S. PT STATED SHE WAS WILLING TO CONSENT TO A SURGICAL INTERVENTION. PT WAS ABLE TO GET SOME REST AND HAD A QUIET UNEVENTFUL NIGHT.
[2020-11-06 05:28] LABS: Anion Gap 2 mmol/L (6-16); Blood Urea Nitrogen 36 mg/dL (8-24); Bun/Creatinine Ratio 46.2 (12.0-20.0); CO2, Blood 31 mmol/L (21-32); Calcium, Blood 8.5 mg/dL (8.5-10.1); Chloride, Blood 108 mmol/L (98-108); Creatinine, Blood 0.78 mg/dL (0.40-1.00); Glomerular Filtration Rate >60 (60-); Glucose, Blood 181 mg/dL (70-99); Potassium, Blood 3.7 mmol/L (3.5-5.5); Sodium, Blood 141 mmol/L (136-145)
--- NOTE | 2020-11-06 17:47 | NUR ---
PT SUMMARY: NO ACUTE CHANGE FOR THE SHIFT, VITAL SIGNS STABLE. PT REMAIN ON HEPARIN GTT AT 17U/KG/HR. PT DENIES CHEST PAIN/PRESSURE/SOB. REMAINS ON 2L OF O2 VIA NASAL CANNULA SATS ABOVE 95%. AWAITING FOR DR STROUD TO SEE THE PT FOR POSS SURGICAL INTERVENTION TO SWITCH TO ORAL BLOOD THINNER IF NO INTERVENTION. PT STAYED IN BED MOST OF THE SHIFT USES BED [place] FOR TOILETING STILL INCONTINENT OF URINE AT TIMES. BRACE ON LEFT LEG IN PLACE CIRC CHECKS GOOD HAD NORCO X1 FOR PAIN AND WAS EFFECTIVE. NO OTHER ISSUES ENCOUNTERED FOR THE SHIFT. PT REMAINS ALERT AND ORIENTED AT BASELINE, COOPERATIVE WITH CARES, WILL MONITOR UNTIL THE END OF SHIFT
--- NOTE | 2020-11-07 04:35 | NUR ---
SHIFT SUMMARY PT HAD A QUIET UNEVENTFUL NIGHT. PT WAS ON ROOM AIR FOR A COUPLE HOURS WITH O2 SATS >90%, OTHERWISE PT ON 2LPM VIA NC WITH O2 SATS >94%. PT STATED HAVING PAIN IN HER RIBS THAT SHE STATES IS FROM BREATHING DIFFICULTIES. PAIN IN HER HIPS AND LEFT LEG WELL RIB PAIN WAS WELL CONTROLLED WITH PRN MEDICATIONS. VITALS STABLE, HR TACHY 100'S. PT ABLE TO GET SOME REST T/O SHIFT.
[2020-11-07 06:23] LABS: Hematocrit 29.2 % (33.0-51.0); Hemoglobin 9.4 g/dL (11.5-16.0); Mean Corpuscular HGB 28.8 pg (26.0-34.0); Mean Corpuscular HGB Conc 32.2 g/dL (31.5-36.5); Mean Corpuscular Volume 90 fL (80-100); RDW Coefficient Variation 13.8 % (11.7-14.2); RDW Standard Deviation 44.8 fL (35.1-46.3); Red Blood Cell Count 3.26 M/mm3 (3.80-5.20); White Blood Cell Count 7.87 K/mm3 (4.00-11.30)
[2020-11-07 06:39] LABS: Anion Gap 5 mmol/L (6-16); Blood Urea Nitrogen 22 mg/dL (8-24); Bun/Creatinine Ratio 35.4 (12.0-20.0); CO2, Blood 29 mmol/L (21-32); Calcium, Blood 8.3 mg/dL (8.5-10.1); Chloride, Blood 107 mmol/L (98-108); Creatinine, Blood 0.62 mg/dL (0.40-1.00); Glomerular Filtration Rate >60 (60-); Glucose, Blood 190 mg/dL (70-99); Potassium, Blood 4.2 mmol/L (3.5-5.5); Sodium, Blood 141 mmol/L (136-145)
[2020-11-07 07:04] LABS: Platelet Count 124 K/mm3 (150-400)
[2020-11-07 17:39] LABS: Influenza A, PCR NEGATIVE (NEGATIVE); Influenza B, PCR NEGATIVE (NEGATIVE); Resp Syncytial Virus, PCR NEGATIVE (NEGATIVE); SARS-Cov-2 (COVID-19) PCR, MMC NEGATIVE (NEGATIVE)
--- NOTE | 2020-11-07 19:21 | NUR ---
PT SUMMARY: NO ACUTE CHANGED FOR THE SHIFT, VITALS HAS BEEN STABLE. PT CURRENTLY IN THE CATHLAB FOR SURGICAL/INTERVENTION PROCEDURE BY DR STROUD. PT HAD NORCO X1 FOR WALE SHIFT, REMAINS ON HEPARIN GTT AT 18U/KG/HR. DUPLEX SCAN ON BLE DONE NON OCCLUSIVE CLOT ON LLE DR STROUD IS AWARE. LEG BRACE ON ALL SHIFT, PT ABLE TO ROLL AND TURN AND USE BEDPAN FOR TOILETING. NO OTHER ISSUES ENCOUNTERED FOR THE SHIFT WILL MONITOR
--- NOTE | 2020-11-07 21:00 | NUR ---
UPDATE CALLED DR STROUD TO CLARIFY IF PATIENT IS TO BE STARTED BACK ON HEPARIN GTT. DR STROUD STATED THAT HE WOULD LIKE HEPARIN GTT TO BE STARTED AGAIN THROUGHOUT THE NIGHT. HE STATED HE WILL TALK TO DAY SHIFT HOSPITALIST IN THE MORNING ABOUT TRANSITIONING TO PO ANTICOAGULANTS.
[2020-11-07 21:02] LABS: Hematocrit 31.5 % (33.0-51.0)
--- NOTE | 2020-11-08 05:10 | NUR ---
SHIFT SUMMARY SHIFT SUMMARY PT ARRIVED BACK TO HER ROOM AROUND 1949 FROM PE THROMBECTOMY. VITALS REMAINED STABLE AND R FEMORAL ACCESS SITE REMAINED UNCHANGED T/O SHIFT. THE SITE HAD VERY LITTLE DRAINAGE, WAS NOT TENDER, NO REDNESS, NO SWELLING, AND NO FIRMNESS. PT STATED SHE DID NOT HAVE ANY PAIN AT THE SITE. PT WAS ON 2.5 LPM VIA NC T/O THE SHIFT WITH 02 SATS >90%. PT DENIED ANY SOB. BP VARIED FROM 153 TO 102 SYSTOLIC. HR TACHY 100-110'S. PT DENIED ANY CP. PAIN IN HIPS AND L LEG WAS CONTROLED WITH PRN MEDICATIONS. PT STATED FEELING MUCH BETTER THAN PREVIOUS SHIFTS. PT HAD A RESTFUL, UNEVENTFUL NIGHT RECOVERING FROM THE PROCEDURE.
[2020-11-08] MEDS ORDERED: XARELTO20 MG PO (09:50)
[2020-11-08] MEDS ORDERED: XARELTO15 M1 PO (09:51)
[2020-11-08] MEDS ORDERED: XARELTO15 MG PO (09:55)
[2020-11-08] MEDS ORDERED: CEFD300 PO (10:02)
--- NOTE | 2020-11-08 11:47 | NUR ---
PATIENT PROVDIDED DISCHARGE INFO REGARDING FOLLOW UP PLANS, REASONS TO RETURN TO THE HOSPITAL, MEDICATION INFORMATION, AND FEMORAL SITE CARE. PATIENT VERBALIZED UNDERSTANDING, NO SIGNS OF ACUTE DISTRESS, PATIENT LEFT VIA AMBULANCE TRANSPORT.
== END 2020-11-08 11:31 | disposition home or self-care (01) | DRG 163 ==
LOC: ER 18:56 → PCU 18:57
PROVIDERS: Emergency Medicine; Family Medicine; Physician Assistant; Radiology Diagnostic Radiology; ADMIT Internal Medicine
PROC: 02CR3ZZ Extirpation of Matter from Left Pulmonary Artery, Percutaneous Approach (ICD-10-PCS; principal; 2020-11-08)
PROC: 02CQ3ZZ Extirpation of Matter from Right Pulmonary Artery, Percutaneous Approach (ICD-10-PCS; 2020-11-08)
PROC: B31TYZZ Fluoroscopy of Left Pulmonary Artery using Other Contrast (ICD-10-PCS; 2020-11-08)
PROC: B31SYZZ Fluoroscopy of Right Pulmonary Artery using Other Contrast (ICD-10-PCS; 2020-11-08)
DX: I26.99 Other pulmonary embolism without acute cor pulmonale (principal); J96.21 Acute and chronic respiratory failure with hypoxia; N39.0 Urinary tract infection, site not specified; I10 Essential (primary) hypertension; E11.51 Type 2 diabetes mellitus with diabetic peripheral angiopathy without gangrene; Z86.718 Personal history of other venous thrombosis and embolism; S32.592D Other specified fracture of left pubis, subsequent encounter for fracture with routine healing; E11.65 Type 2 diabetes mellitus with hyperglycemia
CPT/HCPCS: 0241U; 36015; 36415; 37184; 37185; 71260; 75743; 75825; 76937; 80048; 80053; 82550; 82947; 83880; 84484; 85014; 85018; 85025; 85027; 85610; 85730; 86850; 86900; 86901; 93005; 93010; 93306; 93970; 94640; 94760; 94762; 96365; 96366; 96375; 99152; 99153; 99285-25; A9270; C1760; C1769; C1894; G0378; J0696; J1170; J1644; J2250; J2405; J3010; J7030; J7040; Q9967

== ENCOUNTER 2021-02-02 13:38 | Emergency (ER) | payer OTHER ==
[~2021-02-02] VITALS: Ht 160 cm; Wt 68.0 kg
[~2021-02-02 13:38] MED LIST changes: +ACIDOPHILUS1 EAC3 PO; +DICLOFENAC SOD100 G1 TOP; +MAG6464 MG PO; +XARELTO15 M1 PO; +XARELTO15 MG PO; +[UNRECOGNIZED DRUG - OTHER] PO
[2021-02-02 14:18] LABS: BASOPHILS ABSOLUTE AUTO 0.04 K/mm3 (0.00-0.23); BASOPHILS PERCENT AUTO 0 % (0-2); EOSINOPHILS ABSOLUTE AUTO 0.05 K/mm3 (0.00-0.68); EOSINOPHILS PERCENT AUTO 0 % (0-6); Hematocrit 31.9 % (33.0-51.0); Hemoglobin 10.4 g/dL (11.5-16.0); IMMATURE GRAN ABSOLUTE AUTO 0.07 K/mm3 (0.00-0.10); IMMATURE GRAN PERCENT AUTO 1 % (0-1); LYMPHOCYTES ABSOLUTE AUTO 1.31 K/mm3 (0.84-5.20); LYMPHOCYTES PERCENT AUTO 10 % (21-46); MONOCYTES ABSOLUTE AUTO 0.81 K/mm3 (0.16-1.47); MONOCYTES PERCENT AUTO 6 % (4-13); Mean Corpuscular HGB 28.3 pg (26.0-34.0); Mean Corpuscular HGB Conc 32.6 g/dL (31.5-36.5); Mean Corpuscular Volume 87 fL (80-100); NEUTROPHILS ABSOLUTE AUTO 11.08 K/mm3 (1.96-9.15); NEUTROPHILS PERCENT AUTO 83 % (41-73); Platelet Count 267 K/mm3 (150-400); RDW Standard Deviation 45.6 fL (35.1-46.3); Red Blood Cell Count 3.68 M/mm3 (3.80-5.20); White Blood Cell Count 13.36 K/mm3 (4.00-11.30)
[2021-02-02 14:31] LABS: Alanine Aminotransfer (ALT/SGP 12 U/L (12-78); Albumin, Blood 2.9 g/dL (3.4-5.0); Albumin/Globulin Ratio 0.6 (0.8-1.8); Alk Phos 84 U/L (50-136); Anion Gap 5 mmol/L (6-16); Aspartate Aminotrans (AST/SGOT 10 U/L (12-37); Bilirubin, Total 0.5 mg/dL (0.1-1.0); Blood Urea Nitrogen 19 mg/dL (8-24); Bun/Creatinine Ratio 21.9 (12.0-20.0); CO2, Blood 30 mmol/L (21-32); Calcium, Blood 8.7 mg/dL (8.5-10.1); Chloride, Blood 100 mmol/L (98-108); Creatinine, Blood 0.87 mg/dL (0.40-1.00); Globulin, Blood 4.7 g/dL (2.2-4.0); Glomerular Filtration Rate >60 (60-); Glucose, Blood 282 mg/dL (70-99); Potassium, Blood 3.9 mmol/L (3.5-5.5); Sodium, Blood 135 mmol/L (136-145); Total Protein, Blood 7.6 g/dL (6.4-8.2)
[2021-02-02] MEDS ORDERED: CEPH500 PO (17:22)
== END 2021-02-02 18:23 | disposition home or self-care (01) ==
LOC: ER 13:38
PROVIDERS: Physician Assistant
DX: L03.113 Cellulitis of right upper limb (principal); Z79.4 Long term (current) use of insulin; Z79.899 Other long term (current) drug therapy; Z88.0 Allergy status to penicillin; Z88.2 Allergy status to sulfonamides; Z88.1 Allergy status to other antibiotic agents
CPT/HCPCS: 36415; 73100; 76882; 80053; 83880; 85025; 99284-25; A9270

== ENCOUNTER 2021-02-24 18:12 | Emergency (ER) | payer OTHER ==
[~2021-02-24] VITALS: Ht 160 cm; Wt 75.8 kg
[2021-02-24] MEDS ORDERED: ALEN70 PO (18:24)
[2021-02-24] MEDS ORDERED: BASAGLAR K100 UNIT/1 SC (18:25)
[2021-02-24] MEDS ORDERED: CEFTRIAXONE1 GM IV (18:27)
[2021-02-24] MEDS ORDERED: CEPH500 PO (19:22)
== END 2021-02-24 21:52 | disposition home or self-care (01) ==
LOC: ER 18:12
DX: L03.113 Cellulitis of right upper limb (principal); E11.9 Type 2 diabetes mellitus without complications; I48.91 Unspecified atrial fibrillation; J44.9 Chronic obstructive pulmonary disease, unspecified; Z88.0 Allergy status to penicillin; Z88.2 Allergy status to sulfonamides; Z79.899 Other long term (current) drug therapy; Z79.01 Long term (current) use of anticoagulants
CPT/HCPCS: 96372; 99283-25; J0696

== ENCOUNTER 2021-09-09 18:24 | Emergency (ER) | payer OTHER ==
[~2021-09-09] VITALS: Ht 160 cm; Wt 79.8 kg
[~2021-09-09 18:24] MED LIST changes: +BASAGLAR K100 UNIT/6 SC; +BISA10S PO; +BUTALB-ACETAMI1 EAC7 PO; +CALCIUM-MAGNES1 EAC9 PO; +CEFTRIAXONE1 GM IV; +CILOSTAZOL50 M1 PO; +FOLATE PO; +Fosinopril Sodi40 MG PO; +HUMALOG100 UNIT/1; +IBUP600 PO; +NEURONTIN300 MG PO; +NOVOLOG FL100 UNIT/2; +Promethazine HC25 M1 PO; +Ranitidine HCl150 M1 PO; +SYMBICORT 160-4.6 GM INH; +VITAMIN B125000 MC1 PO; +XARELTO10 M1 PO
== END 2021-09-09 19:30 | disposition home or self-care (01) ==
LOC: ER 18:24
DX: R13.10 Dysphagia, unspecified (principal); J44.9 Chronic obstructive pulmonary disease, unspecified; K21.9 Gastro-esophageal reflux disease without esophagitis; I10 Essential (primary) hypertension; Z79.899 Other long term (current) drug therapy; Z88.0 Allergy status to penicillin; Z88.2 Allergy status to sulfonamides; Z88.5 Allergy status to narcotic agent
CPT/HCPCS: 70360; 99283-25

== ENCOUNTER 2021-09-11 12:08 | Emergency (ER) | payer OTHER ==
[~2021-09-11] VITALS: Ht 160 cm; Wt 79.8 kg
[~2021-09-11 12:08] MED LIST changes: -HUMALOG100 UNIT/1; +HUMALOG100 UNIT/1 SC
[2021-09-11 13:53] LABS: BASOPHILS ABSOLUTE AUTO 0.02 K/mm3 (0.00-0.23); BASOPHILS PERCENT AUTO 0 % (0-2); EOSINOPHILS ABSOLUTE AUTO 0.04 K/mm3 (0.00-0.68); EOSINOPHILS PERCENT AUTO 0 % (0-6); Hematocrit 34.4 % (33.0-51.0); IMMATURE GRAN ABSOLUTE AUTO 0.04 K/mm3 (0.00-0.10); IMMATURE GRAN PERCENT AUTO 0 % (0-1); LYMPHOCYTES ABSOLUTE AUTO 1.17 K/mm3 (0.84-5.20); LYMPHOCYTES PERCENT AUTO 11 % (21-46); MONOCYTES ABSOLUTE AUTO 0.89 K/mm3 (0.16-1.47); MONOCYTES PERCENT AUTO 8 % (4-13); Mean Corpuscular HGB 28.4 pg (26.0-34.0); Mean Corpuscular Volume 89 fL (80-100); Mean Platelet Volume 10.2 fL (9.1-12.4); NEUTROPHILS ABSOLUTE AUTO 8.45 K/mm3 (1.96-9.15); NEUTROPHILS PERCENT AUTO 80 % (41-73); Platelet Count 253 K/mm3 (150-400); RDW Coefficient Variation 13.8 % (11.7-14.2); RDW Standard Deviation 44.4 fL (35.1-46.3); Red Blood Cell Count 3.87 M/mm3 (3.80-5.20); White Blood Cell Count 10.61 K/mm3 (4.00-11.30)
[2021-09-11 14:19] LABS: Alanine Aminotransfer (ALT/SGP 16 U/L (12-78); Albumin, Blood 2.5 g/dL (3.4-5.0); Albumin/Globulin Ratio 0.8 (0.8-1.8); Alk Phos 57 U/L (50-136); Anion Gap 6 mmol/L (6-16); Aspartate Aminotrans (AST/SGOT 13 U/L (12-37); Bilirubin, Total 0.4 mg/dL (0.1-1.0); Blood Urea Nitrogen 13 mg/dL (8-24); Bun/Creatinine Ratio 18.6 (12.0-20.0); CO2, Blood 30 mmol/L (21-32); Chloride, Blood 108 mmol/L (98-108); Globulin, Blood 3.3 g/dL (2.2-4.0); Glomerular Filtration Rate >60 (60-); Glucose, Blood 87 mg/dL (70-99); Potassium, Blood 3.3 mmol/L (3.5-5.5); Sodium, Blood 144 mmol/L (136-145); Total Protein, Blood 5.8 g/dL (6.4-8.2)
[2021-09-11 14:30] LABS: International Normalized Ratio 1.46
[2021-09-11] MEDS ORDERED: ONDA4ODT MM (15:23)
== END 2021-09-11 16:20 | disposition home or self-care (01) ==
LOC: ER 12:08
PROVIDERS: Emergency Medicine
DX: K20.90 Esophagitis, unspecified without bleeding (principal); J44.9 Chronic obstructive pulmonary disease, unspecified; I10 Essential (primary) hypertension; E11.51 Type 2 diabetes mellitus with diabetic peripheral angiopathy without gangrene; Z79.4 Long term (current) use of insulin; Z79.899 Other long term (current) drug therapy; Z88.0 Allergy status to penicillin; Z88.2 Allergy status to sulfonamides
CPT/HCPCS: 36415; 80053; 85025; 85610; 86850; 86900; 86901; 93005; 93010; 96374; 99284-25; J2405

== ENCOUNTER 2021-09-14 12:28 | Inpatient (IN) | payer OTHER ==
[~2021-09-14] VITALS: Ht 160 cm; Wt 82.4 kg
[2021-09-14 12:56] LABS: BASOPHILS ABSOLUTE AUTO 0.02 K/mm3 (0.00-0.23); BASOPHILS PERCENT AUTO 0 % (0-2); EOSINOPHILS ABSOLUTE AUTO 0.04 K/mm3 (0.00-0.68); EOSINOPHILS PERCENT AUTO 1 % (0-6); Hemoglobin 9.6 g/dL (11.5-16.0); IMMATURE GRAN ABSOLUTE AUTO 0.04 K/mm3 (0.00-0.10); IMMATURE GRAN PERCENT AUTO 1 % (0-1); LYMPHOCYTES ABSOLUTE AUTO 0.95 K/mm3 (0.84-5.20); LYMPHOCYTES PERCENT AUTO 11 % (21-46); MONOCYTES ABSOLUTE AUTO 0.88 K/mm3 (0.16-1.47); MONOCYTES PERCENT AUTO 10 % (4-13); Mean Corpuscular HGB 28.3 pg (26.0-34.0); Mean Corpuscular Volume 89 fL (80-100); Mean Platelet Volume 10.4 fL (9.1-12.4); NEUTROPHILS ABSOLUTE AUTO 6.85 K/mm3 (1.96-9.15); NEUTROPHILS PERCENT AUTO 78 % (41-73); Platelet Count 255 K/mm3 (150-400); RDW Coefficient Variation 13.7 % (11.7-14.2); RDW Standard Deviation 44.5 fL (35.1-46.3); Red Blood Cell Count 3.39 M/mm3 (3.80-5.20); White Blood Cell Count 8.78 K/mm3 (4.00-11.30)
[2021-09-14 13:21] LABS: Albumin/Globulin Ratio 0.6 (0.8-1.8); Bilirubin, Total 0.3 mg/dL (0.1-1.0); Bun/Creatinine Ratio 15.2 (12.0-20.0); Calcium, Blood 8.2 mg/dL (8.5-10.1); Creatinine, Blood 2.37 mg/dL (0.40-1.00); Globulin, Blood 3.5 g/dL (2.2-4.0); Potassium, Blood 3.7 mmol/L (3.5-5.5); Total Protein, Blood 5.5 g/dL (6.4-8.2)
[2021-09-14 13:40] LABS: Influenza A, PCR NEGATIVE (NEGATIVE); Influenza B, PCR NEGATIVE (NEGATIVE); Resp Syncytial Virus, PCR NEGATIVE (NEGATIVE); SARS-Cov-2 (COVID-19) PCR, MMC NEGATIVE (NEGATIVE)
[2021-09-14 15:03] LABS: Source, Urine Clean Catch
[2021-09-14 15:23] LABS: Appearance, Urine Hazy (Clear); Blood, Urine Neg (Neg); Color, Urine Yellow (P-Yellow); Glucose Qualitative, Urine Neg (Neg); Ketones, Urine Neg (Neg); Leukocyte Esterase, Urine Neg (Neg); Nitrite, Urine Neg (Neg); Protein, Urine 1+ (Neg); Urobilinogen, Urine NORM (Normal)
[2021-09-14 15:57] LABS: Bilirubin, Urine 1+ (Neg)
[2021-09-14 15:58] LABS: Red Blood Cells, Urine 0-2 /hpf (0-2); White Blood Cells, Urine 0-2 /hpf (0-5)
[2021-09-14 15:59] LABS: Bacteria Mod /hpf; Squamous Epithelial Cells Few /hpf (Few)
[2021-09-14 16:00] LABS: Hyaline Casts TNTC /lpf (0-2)
--- NOTE | 2021-09-14 17:21 | NUR ---
Pt admitted from ED. on arrival BP 81/41 map 54, MD notified. Informed to start continuous fluids and no additional bolus at this time. Pt does report dizziness that has been present all day long. A&O at this time.
[2021-09-14] MEDS ORDERED: METO50ER PO (18:10)
[2021-09-14] MEDS ORDERED: ACIDOPHILUS1 EAC3 PO (18:18)
[2021-09-14] MEDS ORDERED: BISA10S PR (18:24)
[2021-09-14] MEDS ORDERED: Voltaren100 GM TOP (18:28)
[2021-09-14] MEDS ORDERED: LOPE2C PO (18:32)
[2021-09-14] MEDS ORDERED: Robaxin750 MG PO (18:34)
[2021-09-14] MEDS ORDERED: METO5A PO (18:35)
[2021-09-14] MEDS ORDERED: DULCOLAX400 MG/5 M (18:38)
[2021-09-14] MEDS ORDERED: SENNA LAXATIVE8.6 MG PO (18:39)
[2021-09-14] MEDS ORDERED: IMITREX25 MG PO (18:40)
--- NOTE | 2021-09-14 18:40 | NUR ---
Boris Barron was updated this evening.
--- NOTE | 2021-09-14 18:41 | NUR ---
Pt is A&O. SBP has been in 80s since admission, LR running at 100ml/hr. MD aware of low BP and is wanting to see how she does with the fluids over the next few hours. Pt is on 3L oxygen at this time. cbg 200s, but pt had just drank juice from ED prior to arrival. Sliding scale is ordered now.
[2021-09-14] MEDS ORDERED: CALCIUM 600 WI1 EACH PO (18:47)
[2021-09-14] MEDS ORDERED: UMECLIDINIUM INH (18:51)
[2021-09-14] MEDS ORDERED: MAG6464 MG PO (18:54)
[2021-09-14] MEDS ORDERED: MYLANTA MAXIMUM10 ML PO (19:06)
[2021-09-14 22:59] LABS: Source, Urine Catheter
[2021-09-14 23:01] LABS: Blood, Urine Neg (Neg); Glucose Qualitative, Urine Neg (Neg); Ketones, Urine Neg (Neg); Leukocyte Esterase, Urine Neg (Neg); Nitrite, Urine Neg (Neg); Protein, Urine 1+ (Neg); Specific Gravity, Urine 1.015 (1.003-1.022); Urobilinogen, Urine NORM (Normal)
--- NOTE | 2021-09-14 23:04 | NUR ---
PATIENT HAS HAD NO URINE OUTPUT SINCE ADMISSION, BLADDER SCANNED PATIENT > 498 ML PER MD INSERT ONOFRE CATHETER, INSERTED 14 FR ONOFRE WITH 10CC BALOON EDUCATION PROVIDED TO PATIENT AND PROCEDURE EXPLAINED, STERILE TECHNIQUE WAS USED AND INSERTED WITH ONE TRY, URINE SAMPLE SENT TO LAB PER POLICY AND PROCEDURES FOR ONOFRE INSERTION, PATIENT TOLERATED PROCEDURE WELL, NOTED DARK CLOUDY TEA COLORED URINE.
[2021-09-14 23:11] LABS: Appearance, Urine Clear (Clear); Bilirubin, Urine 1+ (Neg); Color, Urine Yellow (P-Yellow)
[2021-09-15 04:26] LABS: Hematocrit 26.8 % (33.0-51.0); Hemoglobin 8.6 g/dL (11.5-16.0); Mean Corpuscular HGB 28.5 pg (26.0-34.0); Mean Corpuscular HGB Conc 32.1 g/dL (31.5-36.5); Mean Corpuscular Volume 89 fL (80-100); Platelet Count 251 K/mm3 (150-400); RDW Coefficient Variation 13.6 % (11.7-14.2); RDW Standard Deviation 44.2 fL (35.1-46.3); Red Blood Cell Count 3.02 M/mm3 (3.80-5.20)
[2021-09-15 05:32] LABS: Bun/Creatinine Ratio 21.4 (12.0-20.0); Calcium, Blood 7.7 mg/dL (8.5-10.1); Creatinine, Blood 1.54 mg/dL (0.40-1.00); Potassium, Blood 3.8 mmol/L (3.5-5.5)
--- NOTE | 2021-09-15 12:22 | NUR ---
Updated pt son (Anderson) per pt request.
--- NOTE | 2021-09-15 15:56 | NUR ---
Telemetry called stating the pt has been having R on T alerting on tele. MD notifed. EKG, Mg and ionized calcium ordered. VSS on RA. Pt denied chest pain, did report mild headache.
--- NOTE | 2021-09-15 17:03 | NUR ---
Pt is A&O, pleasant with cares. VSS on RA, titrated to RA today. Pt reports her baseline is RA during the day and 2L at night. Hernandez remains in place, started bladder training today per MD request. Tele: Sinus tach 90-100s, pt was alarming in telemetry with R on T and MD was notified. EKG, Mg and calcium ordered. M.4, will notifiy MD. CBG 190-200s, sliding scaled used. WOMEN SPECIALIST evaluated pt, changed diet to puree due to pt not having dentures. PT evaluated pt, reported pt seemed to be about at her baseline and recommended outpt therapy.
--- NOTE | 2021-09-15 17:46 | NUR ---
M.4, 2G ordered by MD and initiated.
[2021-09-16 04:05] LABS: BASOPHILS ABSOLUTE AUTO 0.01 K/mm3 (0.00-0.23); BASOPHILS PERCENT AUTO 0 % (0-2); EOSINOPHILS PERCENT AUTO 4 % (0-6); Hematocrit 28.3 % (33.0-51.0); Hemoglobin 8.8 g/dL (11.5-16.0); IMMATURE GRAN ABSOLUTE AUTO 0.03 K/mm3 (0.00-0.10); IMMATURE GRAN PERCENT AUTO 1 % (0-1); LYMPHOCYTES ABSOLUTE AUTO 1.42 K/mm3 (0.84-5.20); LYMPHOCYTES PERCENT AUTO 30 % (21-46); MONOCYTES ABSOLUTE AUTO 0.51 K/mm3 (0.16-1.47); MONOCYTES PERCENT AUTO 11 % (4-13); Mean Corpuscular HGB 27.7 pg (26.0-34.0); Mean Corpuscular HGB Conc 31.1 g/dL (31.5-36.5); Mean Corpuscular Volume 89 fL (80-100); Mean Platelet Volume 10.2 fL (9.1-12.4); NEUTROPHILS ABSOLUTE AUTO 2.56 K/mm3 (1.96-9.15); NEUTROPHILS PERCENT AUTO 54 % (41-73); Platelet Count 236 K/mm3 (150-400); RDW Coefficient Variation 13.5 % (11.7-14.2); RDW Standard Deviation 44.5 fL (35.1-46.3); Red Blood Cell Count 3.18 M/mm3 (3.80-5.20); White Blood Cell Count 4.73 K/mm3 (4.00-11.30)
[2021-09-16 04:44] LABS: Anion Gap 4 mmol/L (6-16); Blood Urea Nitrogen 12 mg/dL (8-24); Bun/Creatinine Ratio 19.6 (12.0-20.0); CO2, Blood 29 mmol/L (21-32); Calcium, Blood 8.1 mg/dL (8.5-10.1); Chloride, Blood 111 mmol/L (98-108); Creatinine, Blood 0.61 mg/dL (0.40-1.00); Glomerular Filtration Rate >60 (60-); Glucose, Blood 161 mg/dL (70-99); Magnesium, Blood 1.6 mg/dL (1.6-2.4); Potassium, Blood 3.6 mmol/L (3.5-5.5); Sodium, Blood 144 mmol/L (136-145)
--- NOTE | 2021-09-16 10:10 | NUR ---
MEDICATION NOTE PLETAL LATE DUE TO WAITING FOR PHARMACY TO SEND.
--- NOTE | 2021-09-16 14:03 | NUR ---
CARE NOTE PT IS ALERT AND ORIENTED X4. URINARY CATHETER REMOVED THIS AM AFTER BLADDER TRAINING COMPLETED BY CLINICAL EDUCATION COORDINATOR NURSE, PT HAS VOIDED VERY LITTLE, APPROX. 100 ML. BLADDER SCAN COMPLETED BY THIS NURSE APPROX 1400 AND PT ONLY HAD 83 ML BASED ON BLADDER SCAN. 2/2 BAGS OF LR INFUSING NOW PER ORDERS AT 50ML/HR. PT CONTINUES TO DENY PAIN. PT NOW WATCHING TV. CALL LIGHT IN REACH. WILL CONTINUE TO MONITOR.
[2021-09-16 17:07] LABS: Percent Saturation 7.7 % (15.0-50.0)
--- NOTE | 2021-09-16 18:09 | NUR ---
SHIFT SUMMARY PT ALERT AND ORIENTED X4, VITAL SIGNS STABLE, SPO2 IN 90'S VIA RA. PT DENIED CHEST PAIN/PRESSURE BUT REPORTED BACK PAIN WHICH WAS TREATED PER EMAR WITH NORCO. PT EXPRESSED RELIEF PAIN WENT FROM 06/02 TO 12/31. LACTATED RINGERS INFUSING PER EMAR ORDERS IN RIGHT AC. PT HAS VOIDED UTILIZING BEDSIDE COMMODE PIVOT SBA. PT WAS PLANNED TO DC TO [facility] TODAY BUT WAS UNABLE TO GO HOME DUE TO [facility] NOT HAVING AN RN TO ASSESS PT, MADE AWARE OF PT STAYING AT [facility] UNTIL TUESDAY 09/18. PT IS NOW MEDICAL STATUS WITH NO TELE. NO OTHER ACUTE CHANGES NOTED. WILL CONTINUE TO MONITOR. CALL LIGHT IN REACH, PT NOW IN CHAIR WATCHING TV.
--- NOTE | 2021-09-16 19:22 | NUR ---
CHANGE OF SHIFT NOTED INCREASE SWELLING LLE +3 SHINY TAUNT, ELEVATED USED DOPPLER STRONG AUDIBLE DORSAL AND TIBIAL PULSES MARKED FOR FURTHER ASSESSMENT, NO COMPLAINTS OF PAIN RESTING COMFORTABLY IN BED, VITAL SIGNS ARE STABLE WILL CONTINUE TO MONITOR
[2021-09-17 04:55] LABS: Anion Gap 3 mmol/L (6-16); Blood Urea Nitrogen 7 mg/dL (8-24); Bun/Creatinine Ratio 13.3 (12.0-20.0); CO2, Blood 29 mmol/L (21-32); Calcium, Blood 8.2 mg/dL (8.5-10.1); Chloride, Blood 111 mmol/L (98-108); Creatinine, Blood 0.53 mg/dL (0.40-1.00); Glomerular Filtration Rate >60 (60-); Glucose, Blood 168 mg/dL (70-99); Magnesium, Blood 1.6 mg/dL (1.6-2.4); Potassium, Blood 3.9 mmol/L (3.5-5.5); Sodium, Blood 143 mmol/L (136-145)
--- NOTE | 2021-09-17 17:58 | NUR ---
SHIFT SUMMARY NO ACUTE EVENTS THIS SHIFT, VSS. PT ALERT, ORIENTED AND COOPERATIVE, FLAT AFFECT NOTED. PT HAS BEEN ABLE TO USE BEDSIDE COMMODE THROUGHOUT THIS SHIFT WITH SBA AND WALKER, TOLERATING WELL. PT HAS BEEN ABLE TO SUCCESSFULLY VOID. PT HAS BEEN UP IN RECLINER SEVERAL TIMES THIS SHIFT. PT COMPLAINED OF BACK PAIN, PAIN MEDICATIONS GIVEN PER EMAR, PT ENDORSED RELIEF OF PAIN. CHARGE NURSE APOLONIA CALLED [facility] FOR POSSIBLE DISCHARGE TODAY, [facility] STATED THEY ARE UNABLE TO TAKE PATIENT UNTIL SATURDAY, PT UPDATED.
[2021-09-18 04:10] LABS: Albumin, Blood 1.8 g/dL (3.4-5.0); Anion Gap 5 mmol/L (6-16); Blood Urea Nitrogen 8 mg/dL (8-24); Bun/Creatinine Ratio 14.1 (12.0-20.0); CO2, Blood 29 mmol/L (21-32); Calcium, Blood 8.3 mg/dL (8.5-10.1); Chloride, Blood 109 mmol/L (98-108); Creatinine, Blood 0.57 mg/dL (0.40-1.00); Glomerular Filtration Rate >60 (60-); Glucose, Blood 171 mg/dL (70-99); Magnesium, Blood 1.4 mg/dL (1.6-2.4); Phosphorus, Blood 3.1 mg/dL (2.5-4.9); Potassium, Blood 4.2 mmol/L (3.5-5.5); Sodium, Blood 143 mmol/L (136-145)
--- NOTE | 2021-09-18 05:51 | NUR ---
PATIENT HAD AN UNEVENTFUL SHIFT. VITALS STABLE. PATIENT REMAINS ON 2L O2 NC WHICH IS HER BASELINE. SLEPT WELL T/O THE NIGHT. NO ACUTE CHANGES TO REPORT OF AT THIS TIME. PATIENT PENDING D/C BACK TO [facility] PENDING REASSESSMENT BY ALISIA RN. PATIENT ASLEEP IN BED AT THIS TIME. CALL LIGHT WITHIN REACH.
--- NOTE | 2021-09-18 12:13 | NUR ---
Shift Note: Pt A&O, pleasant with cares. VSS on RA during the day and 2L at night. SBA w/ FWW. CBGs 141-178, sliding scale used per orders. Mg replaced IV today. Called report to [facility] at 1215.
== END 2021-09-18 12:10 | DRG 683 ==
LOC: ER 12:28 → PCU 15:19
PROVIDERS: Emergency Medicine; Family Medicine; ADMIT Internal Medicine
DX: N17.9 Acute kidney failure, unspecified (principal); I69.354 Hemiplegia and hemiparesis following cerebral infarction affecting left non-dominant side; J96.11 Chronic respiratory failure with hypoxia; Z20.822 Contact with and (suspected) exposure to COVID-19; K22.70 Barrett's esophagus without dysplasia; J44.9 Chronic obstructive pulmonary disease, unspecified; E11.51 Type 2 diabetes mellitus with diabetic peripheral angiopathy without gangrene; M79.7 Fibromyalgia; F32.A Depression, unspecified; I10 Essential (primary) hypertension; I48.91 Unspecified atrial fibrillation; I95.9 Hypotension, unspecified; E83.42 Hypomagnesemia; K21.9 Gastro-esophageal reflux disease without esophagitis; R29.6 Repeated falls; G43.909 Migraine, unspecified, not intractable, without status migrainosus; F41.9 Anxiety disorder, unspecified; K59.00 Constipation, unspecified; F43.10 Post-traumatic stress disorder, unspecified; R32 Unspecified urinary incontinence; M85.80 Other specified disorders of bone density and structure, unspecified site; G47.33 Obstructive sleep apnea (adult) (pediatric); Z99.81 Dependence on supplemental oxygen; Z86.711 Personal history of pulmonary embolism; Z86.718 Personal history of other venous thrombosis and embolism; Z90.710 Acquired absence of both cervix and uterus; Z98.890 Other specified postprocedural states; Z98.891 History of uterine scar from previous surgery; Z88.0 Allergy status to penicillin; Z88.1 Allergy status to other antibiotic agents; Z88.2 Allergy status to sulfonamides; Z88.8 Allergy status to other drugs, medicaments and biological substances; Z79.4 Long term (current) use of insulin; Z79.01 Long term (current) use of anticoagulants; Z79.899 Other long term (current) drug therapy
CPT/HCPCS: 0241U; 36415; 51702; 71045; 76770; 80048; 80053; 80069; 81001; 82330; 82607; 82728; 82746; 82947; 83540; 83550; 83605; 83735; 83880; 84145; 84484; 85025; 85027; 86140; 87040; 87086; 92610; 93005; 93010; 94640; 94760; 94761; 96365; 96375; 97161; 99285-25; A9270; C9113; J0696; J1644; J1815; J3475; J7030; J7120

== ENCOUNTER 2021-10-18 08:32 | Day surgery (SDC) | payer OTHER ==
[~2021-10-18] VITALS: Ht 160 cm; Wt 78.9 kg
[~2021-10-18 08:32] MED LIST changes: +CALCIUM 600 WI1 EACH PO; +DULCOLAX400 MG/5 M; +IMITREX25 MG PO; +LOPE2C PO; +METO5A PO; +MYLANTA MAXIMUM10 ML PO; +UMECLIDINIUM INH
--- NOTE | 2021-10-18 10:09 | NUR ---
[facility] VIA PERSONAL W/C. History, Chart, Medications and Allergies reviewed before start of procedure.Patient confirms NPO status and agrees with scheduled surgery. Patient states colon prep results clear.Lungs clear T/O to Auscultation. Patient States Post-Procedure ride home has been arranged WITH [facility].
--- NOTE | 2021-10-18 11:00 | NUR ---
10/18/21 India Townsend History, Chart, Medications and Allergies reviewed before start of procedure. Patient confirms NPO status and agrees with scheduled surgery. 3-LEAD EKG REVIEWED WITH PHYSICIAN PRIOR TO START OF PROCEDURE. MONITOR INTACT WITH CONTINUOUS PULSE OXIMETRY AND INTERMITTENT BP. Bite Block Placed & REMOVED AT END OF CASE. TIVA CARE BY . SEE PAPER ANESTHISEIA RECORD.
--- NOTE | 2021-10-18 12:54 | NUR ---
VSS, tolerating PO fluids, assist w/dressing and helped into wc, denies pain and dizziness Discharge instructions reviewed with patient. Patient verbalizes understanding. Copy given to patient to take home. Patient States Post-Procedure ride home has been arranged with [facility].
== END 2021-10-18 12:50 | disposition home or self-care (01) ==
LOC: ORSCMMR 08:32 → ORD 10:00 → ORSCMMR 10:00
PROVIDERS: Internal Medicine Gastroenterology
PROC: 0DJD8ZZ Inspection of Lower Intestinal Tract, Via Natural or Artificial Opening Endoscopic (ICD-10-PCS; principal; 2021-10-18 10:00)
PROC: 0DB78ZX Excision of Stomach, Pylorus, Via Natural or Artificial Opening Endoscopic, Diagnostic (ICD-10-PCS; principal; 2021-10-18 10:00)
PROC: 0DB48ZX Excision of Esophagogastric Junction, Via Natural or Artificial Opening Endoscopic, Diagnostic (ICD-10-PCS; principal; 2021-10-18 10:00)
PROC: 0DB58ZX Excision of Esophagus, Via Natural or Artificial Opening Endoscopic, Diagnostic (ICD-10-PCS; principal; 2021-10-18 10:00)
DX: K92.0 Hematemesis (principal); K62.5 Hemorrhage of anus and rectum; K22.70 Barrett's esophagus without dysplasia; K21.9 Gastro-esophageal reflux disease without esophagitis; E11.43 Type 2 diabetes mellitus with diabetic autonomic (poly)neuropathy; K31.84 Gastroparesis; K57.30 Diverticulosis of large intestine without perforation or abscess without bleeding; E78.5 Hyperlipidemia, unspecified; E11.9 Type 2 diabetes mellitus without complications; Z86.73 Personal history of transient ischemic attack (TIA), and cerebral infarction without residual deficits; Z86.718 Personal history of other venous thrombosis and embolism; Z79.01 Long term (current) use of anticoagulants; J44.9 Chronic obstructive pulmonary disease, unspecified; Z99.81 Dependence on supplemental oxygen; Z79.899 Other long term (current) drug therapy
CPT/HCPCS: 82947; 88305; 88312; 88342; A9270; J2001; J2704; J7120

== ENCOUNTER 2021-11-23 16:43 | Emergency (ER) | payer OTHER ==
[~2021-11-23] VITALS: Ht 160 cm; Wt 78.9 kg
== END 2021-11-23 19:14 | disposition home or self-care (01) ==
LOC: ER 16:43
DX: S93.402A Sprain of unspecified ligament of left ankle, initial encounter (principal); J44.9 Chronic obstructive pulmonary disease, unspecified; E11.40 Type 2 diabetes mellitus with diabetic neuropathy, unspecified; J45.909 Unspecified asthma, uncomplicated; I48.91 Unspecified atrial fibrillation; Z86.73 Personal history of transient ischemic attack (TIA), and cerebral infarction without residual deficits; Z87.891 Personal history of nicotine dependence; Z88.0 Allergy status to penicillin; Z88.1 Allergy status to other antibiotic agents; Z88.2 Allergy status to sulfonamides; Z88.8 Allergy status to other drugs, medicaments and biological substances; Z79.899 Other long term (current) drug therapy; Z79.4 Long term (current) use of insulin; X50.1XXA Overexertion from prolonged static or awkward postures, initial encounter
CPT/HCPCS: 73610; 99283-25

== ENCOUNTER 2021-11-25 06:12 | Emergency (ER) | payer OTHER ==
[~2021-11-25] VITALS: Ht 160 cm; Wt 78.9 kg
== END 2021-11-25 08:30 | disposition home or self-care (01) ==
LOC: ER 06:12
DX: S00.03XA Contusion of scalp, initial encounter (principal); Z88.0 Allergy status to penicillin; Z88.2 Allergy status to sulfonamides; Z88.1 Allergy status to other antibiotic agents; Z88.8 Allergy status to other drugs, medicaments and biological substances; Z79.899 Other long term (current) drug therapy; J45.909 Unspecified asthma, uncomplicated; I48.91 Unspecified atrial fibrillation; Z86.73 Personal history of transient ischemic attack (TIA), and cerebral infarction without residual deficits; Z86.711 Personal history of pulmonary embolism; Z86.718 Personal history of other venous thrombosis and embolism; W18.30XA Fall on same level, unspecified, initial encounter
CPT/HCPCS: 36415; 70450; 99284-25

== ENCOUNTER → 2021-12-19 | Outpatient (CLI) | payer OTHER ==
[2021-12-19 18:51] LABS: BASOPHILS ABSOLUTE AUTO 0.03 K/mm3 (0.00-0.23); BASOPHILS PERCENT AUTO 0 % (0-2); EOSINOPHILS ABSOLUTE AUTO 0.32 K/mm3 (0.00-0.68); EOSINOPHILS PERCENT AUTO 4 % (0-6); Hemoglobin 11.1 g/dL (11.5-16.0); IMMATURE GRAN ABSOLUTE AUTO 0.02 K/mm3 (0.00-0.10); IMMATURE GRAN PERCENT AUTO 0 % (0-1); LYMPHOCYTES ABSOLUTE AUTO 2.18 K/mm3 (0.84-5.20); LYMPHOCYTES PERCENT AUTO 25 % (21-46); MONOCYTES ABSOLUTE AUTO 0.57 K/mm3 (0.16-1.47); MONOCYTES PERCENT AUTO 7 % (4-13); Mean Corpuscular HGB 26.9 pg (26.0-34.0); Mean Corpuscular HGB Conc 30.8 g/dL (31.5-36.5); Mean Corpuscular Volume 87 fL (80-100); Mean Platelet Volume 10.8 fL (9.1-12.4); NEUTROPHILS ABSOLUTE AUTO 5.46 K/mm3 (1.96-9.15); NEUTROPHILS PERCENT AUTO 64 % (41-73); Platelet Count 301 K/mm3 (150-400); RDW Coefficient Variation 14.9 % (11.7-14.2); RDW Standard Deviation 47.6 fL (35.1-46.3); Red Blood Cell Count 4.13 M/mm3 (3.80-5.20); White Blood Cell Count 8.58 K/mm3 (4.00-11.30)
[2021-12-19 22:42] LABS: Magnesium, Blood 1.6 mg/dL (1.6-2.4); Percent Saturation 11.8 % (15.0-50.0)
== END | disposition home or self-care (01) ==
LOC: LAB 17:00 → LAB SHORT 17:00
PROVIDERS: Nurse Practitioner Family
DX: Z01.812 Encounter for preprocedural laboratory examination (principal); E61.1 Iron deficiency; E11.9 Type 2 diabetes mellitus without complications
CPT/HCPCS: 82728; 83036; 83540; 83550; 83735; 85025

== ENCOUNTER 2022-02-19 15:44 | Emergency (ER) | payer OTHER ==
[~2022-02-19] VITALS: Ht 160 cm; Wt 80.7 kg
[2022-02-19 20:43] LABS: BASOPHILS ABSOLUTE AUTO 0.05 K/mm3 (0.00-0.23); BASOPHILS PERCENT AUTO 1 % (0-2); EOSINOPHILS ABSOLUTE AUTO 0.38 K/mm3 (0.00-0.68); EOSINOPHILS PERCENT AUTO 4 % (0-6); Hemoglobin 11.2 g/dL (11.5-16.0); IMMATURE GRAN ABSOLUTE AUTO 0.04 K/mm3 (0.00-0.10); IMMATURE GRAN PERCENT AUTO 0 % (0-1); LYMPHOCYTES ABSOLUTE AUTO 3.73 K/mm3 (0.84-5.20); LYMPHOCYTES PERCENT AUTO 37 % (21-46); MONOCYTES ABSOLUTE AUTO 0.66 K/mm3 (0.16-1.47); MONOCYTES PERCENT AUTO 7 % (4-13); Mean Corpuscular HGB 27.6 pg (26.0-34.0); Mean Corpuscular HGB Conc 31.1 g/dL (31.5-36.5); Mean Corpuscular Volume 89 fL (80-100); Mean Platelet Volume 10.3 fL (9.1-12.4); NEUTROPHILS ABSOLUTE AUTO 5.34 K/mm3 (1.96-9.15); NEUTROPHILS PERCENT AUTO 52 % (41-73); Platelet Count 300 K/mm3 (150-400); RDW Coefficient Variation 15.4 % (11.7-14.2); RDW Standard Deviation 50.1 fL (35.1-46.3); Red Blood Cell Count 4.06 M/mm3 (3.80-5.20)
[2022-02-19 21:02] LABS: Albumin, Blood 3.4 g/dL (3.4-5.0); Albumin/Globulin Ratio 0.8 (0.8-1.8); Bilirubin, Total 0.3 mg/dL (0.1-1.0); Bun/Creatinine Ratio 25.3 (12.0-20.0); Calcium, Blood 9.3 mg/dL (8.5-10.1); Creatinine, Blood 0.83 mg/dL (0.40-1.00); Globulin, Blood 4.1 g/dL (2.2-4.0); Potassium, Blood 3.9 mmol/L (3.5-5.5); Total Protein, Blood 7.5 g/dL (6.4-8.2)
[2022-02-19] MEDS ORDERED: MAGCIT300 PO (22:51)
== END 2022-02-19 23:00 | disposition home or self-care (01) ==
LOC: ER 15:44
PROVIDERS: Physician Assistant
DX: K59.00 Constipation, unspecified (principal); I10 Essential (primary) hypertension; J44.9 Chronic obstructive pulmonary disease, unspecified; E11.51 Type 2 diabetes mellitus with diabetic peripheral angiopathy without gangrene; K21.9 Gastro-esophageal reflux disease without esophagitis; Z79.4 Long term (current) use of insulin; Z88.1 Allergy status to other antibiotic agents; Z88.0 Allergy status to penicillin; Z88.2 Allergy status to sulfonamides; Z88.8 Allergy status to other drugs, medicaments and biological substances; Z79.899 Other long term (current) drug therapy; Z99.81 Dependence on supplemental oxygen
CPT/HCPCS: 36415; 74018; 80053; 83690; 85025; A9270

== ENCOUNTER 2022-04-09 14:47 | Emergency (ER) | payer OTHER ==
[~2022-04-09] VITALS: Ht 160 cm; Wt 81.2 kg
[~2022-04-09 14:47] MED LIST changes: +MAGCIT300 PO
[2022-04-09 15:51] LABS: BASOPHILS ABSOLUTE AUTO 0.03 K/mm3 (0.00-0.23); BASOPHILS PERCENT AUTO 0 % (0-2); EOSINOPHILS ABSOLUTE AUTO 0.25 K/mm3 (0.00-0.68); EOSINOPHILS PERCENT AUTO 3 % (0-6); Hematocrit 32.9 % (33.0-51.0); Hemoglobin 10.3 g/dL (11.5-16.0); IMMATURE GRAN ABSOLUTE AUTO 0.02 K/mm3 (0.00-0.10); IMMATURE GRAN PERCENT AUTO 0 % (0-1); LYMPHOCYTES ABSOLUTE AUTO 1.94 K/mm3 (0.84-5.20); LYMPHOCYTES PERCENT AUTO 26 % (21-46); MONOCYTES ABSOLUTE AUTO 0.63 K/mm3 (0.16-1.47); MONOCYTES PERCENT AUTO 9 % (4-13); Mean Corpuscular HGB 28.3 pg (26.0-34.0); Mean Corpuscular HGB Conc 31.3 g/dL (31.5-36.5); Mean Corpuscular Volume 90 fL (80-100); Mean Platelet Volume 10.3 fL (9.1-12.4); NEUTROPHILS ABSOLUTE AUTO 4.52 K/mm3 (1.96-9.15); NEUTROPHILS PERCENT AUTO 61 % (41-73); Platelet Count 283 K/mm3 (150-400); RDW Coefficient Variation 14.5 % (11.7-14.2); RDW Standard Deviation 48.6 fL (35.1-46.3); Red Blood Cell Count 3.64 M/mm3 (3.80-5.20); White Blood Cell Count 7.39 K/mm3 (4.00-11.30)
[2022-04-09 16:22] LABS: Albumin, Blood 3.5 g/dL (3.4-5.0); Albumin/Globulin Ratio 0.9 (0.8-1.8); Bilirubin, Total 0.3 mg/dL (0.1-1.0); Bun/Creatinine Ratio 24.9 (12.0-20.0); Calcium, Blood 9.7 mg/dL (8.5-10.1); Creatinine, Blood 0.76 mg/dL (0.40-1.00); Globulin, Blood 4.1 g/dL (2.2-4.0); Potassium, Blood 4.1 mmol/L (3.5-5.5); Total Protein, Blood 7.6 g/dL (6.4-8.2)
[2022-04-09] MEDS ORDERED: PRAHYD1AEA PR (19:42)
== END 2022-04-09 19:52 | disposition home or self-care (01) ==
LOC: ER 14:47
PROVIDERS: Physician Assistant
DX: K64.4 Residual hemorrhoidal skin tags (principal); E11.40 Type 2 diabetes mellitus with diabetic neuropathy, unspecified; Z86.73 Personal history of transient ischemic attack (TIA), and cerebral infarction without residual deficits; Z87.891 Personal history of nicotine dependence; Z79.4 Long term (current) use of insulin; Z79.899 Other long term (current) drug therapy; Z79.01 Long term (current) use of anticoagulants
CPT/HCPCS: 36415; 80053; 83690; 85025

== ENCOUNTER 2022-07-06 09:09 | Day surgery (SDC) | payer OTHER ==
[~2022-07-06] VITALS: Ht 160 cm; Wt 83.0 kg
[~2022-07-06 09:09] MED LIST changes: +PRAHYD1AEA PR; +VITAMIN D5000 UNIT
--- NOTE | 2022-07-06 11:51 | NUR ---
07/06/22 1151 AMIRA GAUTHIER 0.15MG OF EPI (1MG/1ML) ADDED TO 30MLS OF ROPIVACAINE 0.5% TO CREATE A LOCAL SOLUTION OF ROPIVACAINE 0.5% WITH EPI 1:200,000. LOCAL POURED ONTO STERILE FIELD FOR USE DURING CASE.
--- NOTE | 2022-07-06 12:51 | NUR ---
07/06/22 1251 Roberto Arellano FIRST VITAL ENTRY ACTUALLY OCCRRED AT 1241. TIME RECORDED IN ERROR.
--- NOTE | 2022-07-06 14:16 | NUR ---
07/06/22 1416 Roberto Arellano PATIENT O2 SATS PERIODICALLY DROP BRIEFLY INTO THE 80S ON ROOM AIR. SATS RETURN TO NORMAL LIMITS WITH DEEP BREATHS. PATIENT STATES THIS IS NORMAL FOR HER. DR. VELARDE AND DR. SANDHU APPROVED DISCHARGE. PATIENT WAS INSTRUCTED TO USE INCIENTIVE SPIROMETRY FOUR TIMES PER HOUR WHILE AT REST.
== END 2022-07-06 14:05 | disposition home or self-care (01) ==
LOC: ORSCSDS 09:09
PROVIDERS: Podiatrist Foot & Ankle Surgery
PROC: 0SPF04Z Removal of Internal Fixation Device from Right Ankle Joint, Open Approach (ICD-10-PCS; principal; 2022-07-06 11:00)
DX: T84.84XA Pain due to internal orthopedic prosthetic devices, implants and grafts, initial encounter (principal); I10 Essential (primary) hypertension; I48.91 Unspecified atrial fibrillation; Z79.01 Long term (current) use of anticoagulants; E78.5 Hyperlipidemia, unspecified; G47.33 Obstructive sleep apnea (adult) (pediatric); J44.9 Chronic obstructive pulmonary disease, unspecified; Z87.891 Personal history of nicotine dependence; E11.40 Type 2 diabetes mellitus with diabetic neuropathy, unspecified; Z79.4 Long term (current) use of insulin; Z86.73 Personal history of transient ischemic attack (TIA), and cerebral infarction without residual deficits; Z79.899 Other long term (current) drug therapy
CPT/HCPCS: 82947; 88305; 88311; J0171; J1100; J2370; J2405; J2704; J2795; J3010; J7120

== ENCOUNTER 2022-07-10 15:25 | Emergency (ER) | payer OTHER ==
[~2022-07-10] VITALS: Ht 160 cm; Wt 82.5 kg
[2022-07-10 16:45] LABS: Appearance, Urine Clear (Clear); Bilirubin, Urine Neg (Neg); Blood, Urine 1+ (Neg); Color, Urine Amber (P-Yellow); Glucose Qualitative, Urine 1+ (Neg); Ketones, Urine Neg (Neg); Leukocyte Esterase, Urine 1+ (Neg); Nitrite, Urine Neg (Neg); Protein, Urine 2+ (Neg); Urobilinogen, Urine NORM (Normal); pH, Urine 6.5 (5.0-8.0)
[2022-07-10 16:59] LABS: Source, Urine Straight Cath
[2022-07-10 17:02] LABS: Bacteria Rare /hpf; Squamous Epithelial Cells Rare /hpf (Few)
[2022-07-10 17:03] LABS: Renal Epithelial Rare /hpf (0-Rare); Transitional Epithelial Cells Rare /hpf (0-Rare)
== END 2022-07-10 19:26 | disposition home or self-care (01) ==
LOC: ER 15:25
PROVIDERS: Physician Assistant
DX: Z48.01 Encounter for change or removal of surgical wound dressing (principal); R53.1 Weakness; I10 Essential (primary) hypertension; F32.9 Major depressive disorder, single episode, unspecified; J44.9 Chronic obstructive pulmonary disease, unspecified; E11.51 Type 2 diabetes mellitus with diabetic peripheral angiopathy without gangrene; I69.954 Hemiplegia and hemiparesis following unspecified cerebrovascular disease affecting left non-dominant side; Z99.81 Dependence on supplemental oxygen; Z88.1 Allergy status to other antibiotic agents; Z88.0 Allergy status to penicillin; Z88.2 Allergy status to sulfonamides; Z88.8 Allergy status to other drugs, medicaments and biological substances; Z79.899 Other long term (current) drug therapy; Z79.4 Long term (current) use of insulin; Z79.01 Long term (current) use of anticoagulants
CPT/HCPCS: 51701; 81001; 87086; A9270

== ENCOUNTER 2022-07-19 21:55 | Emergency (ER) | payer OTHER ==
[~2022-07-19] VITALS: Ht 160 cm; Wt 81.7 kg
== END 2022-07-19 23:00 | disposition home or self-care (01) ==
LOC: ER 21:55
DX: Z48.01 Encounter for change or removal of surgical wound dressing (principal); K21.9 Gastro-esophageal reflux disease without esophagitis; J44.9 Chronic obstructive pulmonary disease, unspecified; E11.9 Type 2 diabetes mellitus without complications; I10 Essential (primary) hypertension; Z88.0 Allergy status to penicillin; Z88.2 Allergy status to sulfonamides; Z88.1 Allergy status to other antibiotic agents; Z88.8 Allergy status to other drugs, medicaments and biological substances; Z79.899 Other long term (current) drug therapy; Z79.4 Long term (current) use of insulin; Z79.01 Long term (current) use of anticoagulants; Z86.73 Personal history of transient ischemic attack (TIA), and cerebral infarction without residual deficits
CPT/HCPCS: A9270

== ENCOUNTER → 2022-11-02 | Outpatient (CLI) | payer OTHER ==
[2022-11-02 16:36] LABS: Source, Urine Voided
[2022-11-02 17:29] LABS: Appearance, Urine Hazy (Clear); Bilirubin, Urine Neg (Neg); Blood, Urine Neg (Neg); Color, Urine Yellow (P-Yellow); Glucose Qualitative, Urine 3+ (Neg); Ketones, Urine Neg (Neg); Leukocyte Esterase, Urine 1+ (Neg); Nitrite, Urine Neg (Neg); Protein, Urine 1+ (Neg); Urobilinogen, Urine NORM (Normal)
[2022-11-02 17:40] LABS: Bacteria Many /hpf; Calcium Oxalate Crystals Rare /hpf; Red Blood Cells, Urine 0-2 /hpf (0-2); Squamous Epithelial Cells Mod /hpf (Few); Yeast/Fungi Urine Few /hpf
== END | disposition home or self-care (01) ==
LOC: LAB SHORT 16:33
PROVIDERS: Family Medicine
DX: N39.0 Urinary tract infection, site not specified (principal)
CPT/HCPCS: 81001; 87086

== ENCOUNTER → 2023-03-06 | Outpatient (CLI) | payer OTHER ==
[~2023-03-06] MED LIST changes: +ALBU90OI; +BENADRYL25 MG
[2023-03-06 10:35] LABS: Appearance, Urine Hazy (Clear); Bilirubin, Urine Neg (Neg); Blood, Urine 1+ (Neg); Color, Urine Yellow (P-Yellow); Glucose Qualitative, Urine 3+ (Neg); Ketones, Urine Neg (Neg); Leukocyte Esterase, Urine 3+ (Neg); Nitrite, Urine Neg (Neg); Protein, Urine 1+ (Neg); Urobilinogen, Urine NORM (Normal); pH, Urine 6.5 (5.0-8.0)
[2023-03-06 11:05] LABS: White Blood Cells, Urine TNTC /hpf (0-5)
[2023-03-06 11:07] LABS: Bacteria Few /hpf; Squamous Epithelial Cells Few /hpf (Few); Yeast/Fungi Urine Many /hpf
== END | disposition home or self-care (01) ==
LOC: LAB 09:39 → LAB SHORT 09:39
PROVIDERS: Family Medicine
DX: N39.0 Urinary tract infection, site not specified (principal)
CPT/HCPCS: 81001; 87086; 87147

== ENCOUNTER 2023-03-24 15:28 | Emergency (ER) | payer OTHER ==
[~2023-03-24] VITALS: Ht 160 cm; Wt 72.6 kg
[2023-03-24 16:00] VITALS: BP 158/147
== END 2023-03-24 16:39 | disposition home or self-care (01) ==
LOC: ER 15:28
DX: K59.09 Other constipation (principal); J44.9 Chronic obstructive pulmonary disease, unspecified; I10 Essential (primary) hypertension; I69.954 Hemiplegia and hemiparesis following unspecified cerebrovascular disease affecting left non-dominant side; K21.9 Gastro-esophageal reflux disease without esophagitis; Z99.81 Dependence on supplemental oxygen; Z88.1 Allergy status to other antibiotic agents; Z88.0 Allergy status to penicillin; Z88.2 Allergy status to sulfonamides; Z88.8 Allergy status to other drugs, medicaments and biological substances; Z79.899 Other long term (current) drug therapy; Z79.4 Long term (current) use of insulin; Z87.891 Personal history of nicotine dependence
CPT/HCPCS: 96372; 99283-25; J1885

== ENCOUNTER → 2023-05-06 | Outpatient (CLI) | payer OTHER ==
[2023-05-07 12:55] LABS: Source, Urine Voided
[2023-05-07 14:04] LABS: Appearance, Urine Clear (Clear); Bilirubin, Urine Neg (Neg); Blood, Urine Neg (Neg); Color, Urine Yellow (P-Yellow); Glucose Qualitative, Urine Neg (Neg); Ketones, Urine Neg (Neg); Leukocyte Esterase, Urine 3+ (Neg); Nitrite, Urine Neg (Neg); Protein, Urine Neg (Neg); Specific Gravity, Urine 1.015 (1.003-1.022); Urobilinogen, Urine NORM (Normal)
[2023-05-07 14:37] LABS: Bacteria Mod /hpf; Red Blood Cells, Urine 0-2 /hpf (0-2); Squamous Epithelial Cells Few /hpf (Few); Yeast/Fungi Urine Many /hpf
== END ==
LOC: LAB SHORT 12:00 → LAB 12:00
PROVIDERS: Family Medicine
DX: R30.0 Dysuria (principal)
CPT/HCPCS: 81001; 87086

== ENCOUNTER → 2023-05-23 | Outpatient (CLI) | payer OTHER ==
[2023-05-23 17:26] LABS: Appearance, Urine Cloudy (Clear); Bilirubin, Urine Neg (Neg); Blood, Urine 1+ (Neg); Color, Urine Yellow (P-Yellow); Glucose Qualitative, Urine 1+ (Neg); Ketones, Urine Neg (Neg); Leukocyte Esterase, Urine 3+ (Neg); Nitrite, Urine Neg (Neg); Protein, Urine 1+ (Neg); Specific Gravity, Urine 1.015 (1.003-1.022); Urobilinogen, Urine NORM (Normal)
[2023-05-23 17:35] LABS: Bacteria Mod /hpf; Squamous Epithelial Cells Few /hpf (Few); White Blood Cells, Urine TNTC /hpf (0-5)
== END ==
LOC: LAB 15:49 → LAB SHORT 15:49
PROVIDERS: Family Medicine
DX: N39.0 Urinary tract infection, site not specified (principal)
CPT/HCPCS: 81001; 87086

== ENCOUNTER → 2023-06-06 | Outpatient (CLI) | payer OTHER ==
[~2023-06-06] MED LIST changes: +MIRALAX17 GM PO; +ONDA4 PO
[2023-06-06 15:16] LABS: Appearance, Urine Hazy (Clear); Bilirubin, Urine Neg (Neg); Blood, Urine Neg (Neg); Glucose Qualitative, Urine Neg (Neg); Ketones, Urine Neg (Neg); Leukocyte Esterase, Urine 3+ (Neg); Nitrite, Urine Neg (Neg); Protein, Urine Neg (Neg); Specific Gravity, Urine 1.015 (1.003-1.022); Urobilinogen, Urine NORM (Normal)
[2023-06-06 15:46] LABS: Color, Urine Pale Yellow (P-Yellow)
[2023-06-06 15:48] LABS: Bacteria Few /hpf; Squamous Epithelial Cells Few /hpf (Few); White Blood Cells, Urine TNTC /hpf (0-5)
== END | disposition home or self-care (01) ==
LOC: LAB 14:36 → LAB SHORT 14:36
PROVIDERS: Family Medicine
DX: N39.0 Urinary tract infection, site not specified (principal)
CPT/HCPCS: 81001; 87086

== ENCOUNTER 2023-06-13 17:51 | Emergency (ER) | payer OTHER ==
[~2023-06-13] VITALS: Ht 160 cm; Wt 73.9 kg
[~2023-06-13 17:51] MED LIST changes: -MIRALAX17 GM PO; -ONDA4 PO
[2023-06-13 18:28] LABS: BASOPHILS ABSOLUTE AUTO 0.04 K/mm3 (0.00-0.23); BASOPHILS PERCENT AUTO 1 % (0-2); EOSINOPHILS ABSOLUTE AUTO 0.26 K/mm3 (0.00-0.68); EOSINOPHILS PERCENT AUTO 3 % (0-6); Hematocrit 37.4 % (33.0-51.0); IMMATURE GRAN ABSOLUTE AUTO 0.02 K/mm3 (0.00-0.10); IMMATURE GRAN PERCENT AUTO 0 % (0-1); LYMPHOCYTES ABSOLUTE AUTO 1.95 K/mm3 (0.84-5.20); LYMPHOCYTES PERCENT AUTO 24 % (21-46); MONOCYTES ABSOLUTE AUTO 0.47 K/mm3 (0.16-1.47); MONOCYTES PERCENT AUTO 6 % (4-13); Mean Corpuscular HGB 30.2 pg (26.0-34.0); Mean Corpuscular HGB Conc 32.1 g/dL (31.5-36.5); Mean Corpuscular Volume 94 fL (80-100); Mean Platelet Volume 10.7 fL (9.1-12.4); NEUTROPHILS PERCENT AUTO 66 % (41-73); Platelet Count 210 K/mm3 (150-400); RDW Coefficient Variation 12.9 % (11.7-14.2); RDW Standard Deviation 44.8 fL (35.1-46.3); Red Blood Cell Count 3.97 M/mm3 (3.80-5.20); White Blood Cell Count 8.14 K/mm3 (4.00-11.30)
[2023-06-13 18:52] LABS: Albumin, Blood 3.2 g/dL (3.4-5.0); Albumin/Globulin Ratio 0.8 (0.8-1.8); Bilirubin, Total 0.3 mg/dL (0.1-1.0); Calcium, Blood 10.1 mg/dL (8.5-10.1); Creatinine, Blood 0.81 mg/dL (0.40-1.00); Globulin, Blood 3.9 g/dL (2.2-4.0); Potassium, Blood 3.9 mmol/L (3.5-5.5); Total Protein, Blood 7.1 g/dL (6.4-8.2)
[2023-06-13 20:15] VITALS: BP 116/50
[2023-06-14] MEDS ORDERED: BISA5EC PO (02:06)
[2023-06-14] MEDS ORDERED: MIRALAX17 GM PO (02:06)
[2023-06-14] MEDS ORDERED: ONDA4 PO (02:06)
== END 2023-06-14 03:04 | disposition home or self-care (01) ==
LOC: ER 17:51
PROVIDERS: Emergency Medicine
DX: K59.00 Constipation, unspecified (principal); R11.2 Nausea with vomiting, unspecified; Z88.8 Allergy status to other drugs, medicaments and biological substances; Z88.0 Allergy status to penicillin; Z88.2 Allergy status to sulfonamides; Z88.1 Allergy status to other antibiotic agents; Z79.899 Other long term (current) drug therapy; Z79.4 Long term (current) use of insulin; Z87.891 Personal history of nicotine dependence; K21.9 Gastro-esophageal reflux disease without esophagitis; E11.9 Type 2 diabetes mellitus without complications; J44.9 Chronic obstructive pulmonary disease, unspecified; I10 Essential (primary) hypertension; I48.91 Unspecified atrial fibrillation
CPT/HCPCS: 74019; 80053; 82947; 85025; 96361; 96374; 96375; 99284-25; A9270; J7030

== ENCOUNTER 2023-06-18 19:14 | Inpatient (IN) | payer OTHER ==
[~2023-06-18] VITALS: Ht 160 cm; Wt 71.0 kg
[~2023-06-18 19:14] MED LIST changes: -BENADRYL25 MG; +BENADRYL25 MG PO; +MIRALAX17 GM PO; +ONDA4 PO
[2023-06-18 21:34] LABS: BASOPHILS ABSOLUTE AUTO 0.02 K/mm3 (0.00-0.23); BASOPHILS PERCENT AUTO 0 % (0-2); EOSINOPHILS ABSOLUTE AUTO 0.08 K/mm3 (0.00-0.68); EOSINOPHILS PERCENT AUTO 1 % (0-6); Hematocrit 41.9 % (33.0-51.0); Hemoglobin 13.5 g/dL (11.5-16.0); IMMATURE GRAN ABSOLUTE AUTO 0.01 K/mm3 (0.00-0.10); IMMATURE GRAN PERCENT AUTO 0 % (0-1); LYMPHOCYTES PERCENT AUTO 20 % (21-46); MONOCYTES ABSOLUTE AUTO 0.72 K/mm3 (0.16-1.47); MONOCYTES PERCENT AUTO 8 % (4-13); Mean Corpuscular HGB 29.7 pg (26.0-34.0); Mean Corpuscular HGB Conc 32.2 g/dL (31.5-36.5); Mean Corpuscular Volume 92 fL (80-100); Mean Platelet Volume 10.5 fL (9.1-12.4); NEUTROPHILS ABSOLUTE AUTO 6.62 K/mm3 (1.96-9.15); NEUTROPHILS PERCENT AUTO 71 % (41-73); Platelet Count 234 K/mm3 (150-400); RDW Standard Deviation 44.1 fL (35.1-46.3); Red Blood Cell Count 4.54 M/mm3 (3.80-5.20); White Blood Cell Count 9.35 K/mm3 (4.00-11.30)
[2023-06-18 22:06] LABS: Alanine Aminotransfer (ALT/SGP 16 U/L (12-78); Albumin, Blood 3.7 g/dL (3.4-5.0); Albumin/Globulin Ratio 0.8 (0.8-1.8); Alk Phos 88 U/L (50-136); Anion Gap Unable to Calculate mmol/L (6-16); Aspartate Aminotrans (AST/SGOT 17 U/L (12-37); Bilirubin, Total 0.4 mg/dL (0.1-1.0); Blood Urea Nitrogen 18 mg/dL (8-24); Bun/Creatinine Ratio 17.6 (12.0-20.0); Calcium, Blood 11.3 mg/dL (8.5-10.1); Chloride, Blood 92 mmol/L (98-108); Creatinine, Blood 1.02 mg/dL (0.40-1.00); Globulin, Blood 4.6 g/dL (2.2-4.0); Glomerular Filtration Rate 61 (60-); Glucose, Blood 222 mg/dL (70-99); Potassium, Blood 2.6 mmol/L (3.5-5.5); Sodium, Blood 142 mmol/L (136-145); Total Protein, Blood 8.3 g/dL (6.4-8.2)
[2023-06-18 22:07] LABS: CO2, Blood >45 mmol/L (21-32)
[2023-06-18 22:37] LABS: Magnesium, Blood 1.8 mg/dL (1.6-2.4)
[2023-06-18 22:39] LABS: Base Excess Venous 27.9 mmol/L; Bicarbonate Venous 48.7 mmol/L (24.0-30.0); PCO2 Venous 63.1 mmHg (38-42); pH Blood Venous 7.51 (7.34-7.37)
[2023-06-19 02:07] VITALS: BP 121/64
--- NOTE | 2023-06-19 02:31 | NUR ---
NEW ADMIT PT ADMITTED TO ROOM 358 FROM ED. PT ARRIVED AT 0115 TO ROOM WITH VIA GURNEY, PT HAS NG TUBE PLACED IN RIGHT NOSTRIL AND OXYGEN AT 2LPM VIA NASAL CANNULA. WITH PT WAS PAPERS, AND MEDICATION. LIFT MOLDER CLOSED MOLDS NEEDED; 4 PERSONS ASSISTED TO TRANSFER PT WITH TRANSFER SHEET FROM [facility] TO HOSPITAL BED.
[2023-06-19 02:35] LABS: Base Excess Venous 20.1 mmol/L; Bicarbonate Venous 43.2 mmol/L (24.0-30.0); PCO2 Venous 34.5 mmHg (38-42); pH Blood Venous 7.68 (7.34-7.37)
[2023-06-19 02:48] LABS: BASOPHILS ABSOLUTE AUTO 0.02 K/mm3 (0.00-0.23); BASOPHILS PERCENT AUTO 0 % (0-2); EOSINOPHILS ABSOLUTE AUTO 0.06 K/mm3 (0.00-0.68); EOSINOPHILS PERCENT AUTO 1 % (0-6); Hematocrit 35.2 % (33.0-51.0); Hemoglobin 11.5 g/dL (11.5-16.0); IMMATURE GRAN ABSOLUTE AUTO 0.04 K/mm3 (0.00-0.10); IMMATURE GRAN PERCENT AUTO 0 % (0-1); LYMPHOCYTES ABSOLUTE AUTO 1.53 K/mm3 (0.84-5.20); LYMPHOCYTES PERCENT AUTO 14 % (21-46); MONOCYTES PERCENT AUTO 6 % (4-13); Mean Corpuscular HGB 30.3 pg (26.0-34.0); Mean Corpuscular HGB Conc 32.7 g/dL (31.5-36.5); Mean Corpuscular Volume 93 fL (80-100); Mean Platelet Volume 11.2 fL (9.1-12.4); NEUTROPHILS ABSOLUTE AUTO 8.54 K/mm3 (1.96-9.15); NEUTROPHILS PERCENT AUTO 78 % (41-73); Platelet Count 217 K/mm3 (150-400); RDW Standard Deviation 44.6 fL (35.1-46.3); Red Blood Cell Count 3.79 M/mm3 (3.80-5.20); White Blood Cell Count 10.89 K/mm3 (4.00-11.30)
--- NOTE | 2023-06-19 02:50 | NUR ---
DR. SNOW CALLED AND NOTIFIED OF CRITICAL VBG-PH OF 7.68, DR. SNOW STATED HE SAW AND THAT HE IS CURRENTLY IN THE PATIENTS CHART. NO CHANGES ORDERED AT THIS TIME.
[2023-06-19 03:04] LABS: International Normalized Ratio 1.25
[2023-06-19 03:28] LABS: Albumin, Blood 2.9 g/dL (3.4-5.0); Albumin/Globulin Ratio 0.8 (0.8-1.8); Bilirubin, Total 0.4 mg/dL (0.1-1.0); Bun/Creatinine Ratio 20.3 (12.0-20.0); Calcium, Blood 9.6 mg/dL (8.5-10.1); Creatinine, Blood 0.89 mg/dL (0.40-1.00); Globulin, Blood 3.8 g/dL (2.2-4.0); Magnesium, Blood 1.4 mg/dL (1.6-2.4); Phosphorus, Blood 2.7 mg/dL (2.5-4.9); Potassium, Blood 3.5 mmol/L (3.5-5.5); Total Protein, Blood 6.7 g/dL (6.4-8.2)
--- NOTE | 2023-06-19 06:09 | NUR ---
SHIFT SUMMARY PT TRANSPORTED TO IMAGING AT 0608 BY GREG. HEPARIN STOPPED; PHARMACY NOTIFIED. PT HAS HAD NAUSEA AND VOMITTING THIS MORNING-MEDICATED PER EMAR. PT IS PLEASANT ALERT AND ORIENTED TO PERSON, PLACE AND SITUATION. PT IS ABLE TO MAKE HER NEEDS KNOWN. DENIES CHEST PAIN/PRESSURE/TIGHTNESS AT THIS TIME. PT HAS HAD MULTIPLE CHANGES TO MEDICATIONS AND ORDERS-SEE EMAR. PT IS ON 2LPM VIA NASAL CANNULA. PT IS INCONTINENT WITH ATTENDS IN PLACE. NG SECURED TO NOSE AND SHIRT. PT IS CURRENTLY OUT TO IMAGING.
[2023-06-19] MEDS ORDERED: GABA300 PO (06:15)
--- NOTE | 2023-06-19 07:30 | NUR ---
ASSUMED CARE: PT RESTING IN BED, INTERACTIVE DURING BEDSIDE REPORT. 2L O2 IN PLACE. NG TO LIS WITH GREEN/BROWN DRAINAGE. HEPARIN GTT RUNNING AND RATE VERIFIED WITH ORDERS. NO FURTHER NEEDS OR CONCERNS AT THIS TIME.
[2023-06-19 08:08] VITALS: BP 137/57
[2023-06-19 08:55] LABS: Bicarbonate Venous 31.6 mmol/L (24.0-30.0); PCO2 Venous 50.5 mmHg (38-42); pH Blood Venous 7.43 (7.34-7.37)
[2023-06-19 09:58] LABS: Albumin, Blood 2.8 g/dL (3.4-5.0); Anion Gap 3 mmol/L (6-16); Blood Urea Nitrogen 15 mg/dL (8-24); Bun/Creatinine Ratio 17.9 (12.0-20.0); CO2, Blood 34 mmol/L (21-32); Calcium, Blood 9.2 mg/dL (8.5-10.1); Chloride, Blood 103 mmol/L (98-108); Creatinine, Blood 0.84 mg/dL (0.40-1.00); Glomerular Filtration Rate 77 (60-); Glucose, Blood 249 mg/dL (70-99); Lactate Dehydrogenase (Ld),Bld 285 U/L (100-240); Sodium, Blood 140 mmol/L (136-145)
--- NOTE | 2023-06-19 10:35 | NUR ---
call to office to ensure that consult was recieved. office staff states they will forward the message to surgeon
--- NOTE | 2023-06-19 10:38 | NUR ---
DR DELUCA CAME TO ROUND ON PT. LET HIM KNOW THAT OFFICE WAS CALLED TO VERIFY SURGICAL CONSULT WAS RECIEVED. DR ALSO AWARE THAT PT NOW ON LOW CONTINUOUS SUCTION WITH OCCULT POSITIVE GASTRIC CONTENTS THAT IS BROWN, PER DR NEELY. ICE CHIPS ALLOWED WELL. AWAITING SURGERY FOR FURTHER INSTRUCTIONS
[2023-06-19 14:31] LABS: BASOPHILS ABSOLUTE AUTO 0.02 K/mm3 (0.00-0.23); BASOPHILS PERCENT AUTO 0 % (0-2); EOSINOPHILS ABSOLUTE AUTO 0.22 K/mm3 (0.00-0.68); EOSINOPHILS PERCENT AUTO 3 % (0-6); Hematocrit 35.4 % (33.0-51.0); Hemoglobin 11.1 g/dL (11.5-16.0); IMMATURE GRAN ABSOLUTE AUTO 0.02 K/mm3 (0.00-0.10); IMMATURE GRAN PERCENT AUTO 0 % (0-1); LYMPHOCYTES ABSOLUTE AUTO 2.05 K/mm3 (0.84-5.20); LYMPHOCYTES PERCENT AUTO 24 % (21-46); MONOCYTES ABSOLUTE AUTO 0.65 K/mm3 (0.16-1.47); MONOCYTES PERCENT AUTO 8 % (4-13); Mean Corpuscular HGB 29.7 pg (26.0-34.0); Mean Corpuscular HGB Conc 31.4 g/dL (31.5-36.5); Mean Corpuscular Volume 95 fL (80-100); Mean Platelet Volume 10.8 fL (9.1-12.4); NEUTROPHILS ABSOLUTE AUTO 5.66 K/mm3 (1.96-9.15); NEUTROPHILS PERCENT AUTO 66 % (41-73); Platelet Count 209 K/mm3 (150-400); RDW Coefficient Variation 12.8 % (11.7-14.2); RDW Standard Deviation 44.9 fL (35.1-46.3); Red Blood Cell Count 3.74 M/mm3 (3.80-5.20); White Blood Cell Count 8.62 K/mm3 (4.00-11.30)
[2023-06-19 14:43] VITALS: BP 166/70
[2023-06-19 15:06] LABS: Albumin, Blood 2.8 g/dL (3.4-5.0); Anion Gap 2 mmol/L (6-16); Blood Urea Nitrogen 12 mg/dL (8-24); Bun/Creatinine Ratio 14.7 (12.0-20.0); CO2, Blood 32 mmol/L (21-32); Calcium, Blood 8.8 mg/dL (8.5-10.1); Chloride, Blood 107 mmol/L (98-108); Creatinine, Blood 0.81 mg/dL (0.40-1.00); Glomerular Filtration Rate 81 (60-); Glucose, Blood 213 mg/dL (70-99); Phosphorus, Blood 1.8 mg/dL (2.5-4.9); Potassium, Blood 3.4 mmol/L (3.5-5.5); Sodium, Blood 141 mmol/L (136-145)
[2023-06-19 15:08] LABS: Bicarbonate Venous 27.6 mmol/L (24.0-30.0); PCO2 Venous 42.9 mmHg (38-42); pH Blood Venous 7.43 (7.34-7.37)
[2023-06-19 15:36] LABS: C-REACTIVE PROTEIN, EXT RANGE 0.69 mg/dL (0.000-0.300)
--- NOTE | 2023-06-19 15:49 | NUR ---
Upon receiving a referral for spiritual care, I visited the patient. She tells me about her medical issues and the paln moving forward. She then talks at length about her extremely difficult childhood, her many near experiences, and her family unit complications. She also shares about her Christain nik, and how her connection to God sustains her in challenging times. I normalize her feelings and fears and provide therapeutic listening, gentle retirement plan counselor and prayer. Patient responded well and showed signs of being encouraged in her nik and an increase in hope reguarding medical improvements.
--- NOTE | 2023-06-19 19:15 | NUR ---
SHIFT SUMMARY: PT REMAINS ON LOW CONTINOUS SUCTION PER DR NEELY. DRAINAGE IS BROWN AND SOME COFFEE GROUND EMESIS. HEPARIN GTT RUNNING WELL IV FLUIDS. SURGICAL CONSULT COMPLETED WITH RECOMMENDATION FOR REGLAN AND FOR SUCITON TO CONTINUE. PT DENIES NEEDS OR CONCERNS AT THIS TIME.
[2023-06-19 19:52] VITALS: BP 166/73
--- NOTE | 2023-06-19 21:53 | NUR ---
NURSE NOTE AWAKE NG TO LOW INT SUCTION. HEPARIN DRIP INFUSING - SEE MAR FOR DOSE DETAILS. CALL LIGHT IN REACH
[2023-06-20 02:39] VITALS: BP 176/72
--- NOTE | 2023-06-20 03:25 | NUR ---
NON DESTRUCTIVE TESTING INSPECTOR SUMMARY BP ELEVATED OTHERWISE VSS. RECEIVED ANTIHYPERTENSIVE MED, WILL RECHECK BP FOR RESULTS. NG TUBE TO LOW INT SUCTION, OUTPUT DARK, COPIOUS AMTS. HOB ELEVATED FOR ASPIRATION PREC. HEPARIN DRIP INFUSING AT 16 U/HR, WAS DECREASED FROM 17 U/HR PER PHARMACE INSTRUCTIONS. ALERT AND OREINTED. INCONT OF URINE AND LINEN CHANGED. REMAINS NPO. IVF INFUSING FOR HYDRATION. SEE MAR FOR DETAILS. HAS BEEN RESTING QUIETLY WITH OCCASIONAL INTERRUPTIONS, CALL LIGHT IN REACH, WILL CONTINUE TO MONITOR
[2023-06-20 04:23] LABS: BASOPHILS ABSOLUTE AUTO 0.03 K/mm3 (0.00-0.23); BASOPHILS PERCENT AUTO 0 % (0-2); EOSINOPHILS PERCENT AUTO 4 % (0-6); Hematocrit 35.7 % (33.0-51.0); Hemoglobin 11.3 g/dL (11.5-16.0); IMMATURE GRAN ABSOLUTE AUTO 0.03 K/mm3 (0.00-0.10); IMMATURE GRAN PERCENT AUTO 0 % (0-1); LYMPHOCYTES ABSOLUTE AUTO 2.21 K/mm3 (0.84-5.20); LYMPHOCYTES PERCENT AUTO 22 % (21-46); MONOCYTES ABSOLUTE AUTO 0.68 K/mm3 (0.16-1.47); MONOCYTES PERCENT AUTO 7 % (4-13); Mean Corpuscular HGB Conc 31.7 g/dL (31.5-36.5); Mean Corpuscular Volume 95 fL (80-100); Mean Platelet Volume 10.6 fL (9.1-12.4); NEUTROPHILS ABSOLUTE AUTO 6.77 K/mm3 (1.96-9.15); NEUTROPHILS PERCENT AUTO 67 % (41-73); Platelet Count 194 K/mm3 (150-400); RDW Coefficient Variation 12.5 % (11.7-14.2); RDW Standard Deviation 43.7 fL (35.1-46.3); Red Blood Cell Count 3.77 M/mm3 (3.80-5.20); White Blood Cell Count 10.12 K/mm3 (4.00-11.30)
[2023-06-20 04:59] LABS: Albumin, Blood 2.9 g/dL (3.4-5.0); Albumin/Globulin Ratio 0.8 (0.8-1.8); Bilirubin, Total 0.4 mg/dL (0.1-1.0); Bun/Creatinine Ratio 11.8 (12.0-20.0); Calcium, Blood 8.5 mg/dL (8.5-10.1); Creatinine, Blood 0.68 mg/dL (0.40-1.00); Globulin, Blood 3.6 g/dL (2.2-4.0); Magnesium, Blood 1.3 mg/dL (1.6-2.4); Potassium, Blood 2.9 mmol/L (3.5-5.5); Total Protein, Blood 6.5 g/dL (6.4-8.2)
[2023-06-20 05:33] VITALS: BP 178/76
[2023-06-20 07:26] VITALS: BP 161/61
[2023-06-20 13:48] LABS: Albumin, Blood 2.8 g/dL (3.4-5.0); Anion Gap 5 mmol/L (6-16); Blood Urea Nitrogen 8 mg/dL (8-24); Bun/Creatinine Ratio 12.8 (12.0-20.0); CO2, Blood 25 mmol/L (21-32); Calcium, Blood 8.3 mg/dL (8.5-10.1); Chloride, Blood 112 mmol/L (98-108); Creatinine, Blood 0.63 mg/dL (0.40-1.00); Glomerular Filtration Rate 98 (60-); Glucose, Blood 178 mg/dL (70-99); Magnesium, Blood 1.9 mg/dL (1.6-2.4); Potassium, Blood 3.5 mmol/L (3.5-5.5); Sodium, Blood 142 mmol/L (136-145)
[2023-06-20 14:36] VITALS: BP 143/47
--- NOTE | 2023-06-20 16:44 | NUR ---
VERBAL FROM DR. DELUCA TO DC NS AT 70ML/HR.
--- NOTE | 2023-06-20 18:40 | NUR ---
SUMMARY- NO ACUTE EVENTS THIS SHIFT. NO COMPLAINTS. X1 ASSIST TO BSC. AAOX4 PLEASANT. TPN STARTED THIS EVENING AT 92ML/HR.
[2023-06-20 21:10] VITALS: BP 173/82
[2023-06-21 02:43] VITALS: BP 167/80
--- NOTE | 2023-06-21 05:04 | NUR ---
NURSE NOTE: A&OX4. NG TUBE TO LIS. PRIOR HISTORY OF CVA. ON HEPARIN DRIP. NO CHANGES TO HEPARIN DRIP OVERNIGHT. PPN RUNNING INTO A MIDLINE. POSSIBLE CLAMPING OF NG TUBE TODAY.
[2023-06-21 06:42] LABS: BASOPHILS ABSOLUTE AUTO 0.04 K/mm3 (0.00-0.23); BASOPHILS PERCENT AUTO 0 % (0-2); EOSINOPHILS ABSOLUTE AUTO 0.29 K/mm3 (0.00-0.68); EOSINOPHILS PERCENT AUTO 3 % (0-6); Hematocrit 36.1 % (33.0-51.0); Hemoglobin 11.8 g/dL (11.5-16.0); IMMATURE GRAN ABSOLUTE AUTO 0.02 K/mm3 (0.00-0.10); IMMATURE GRAN PERCENT AUTO 0 % (0-1); LYMPHOCYTES ABSOLUTE AUTO 1.95 K/mm3 (0.84-5.20); LYMPHOCYTES PERCENT AUTO 17 % (21-46); MONOCYTES ABSOLUTE AUTO 0.75 K/mm3 (0.16-1.47); MONOCYTES PERCENT AUTO 6 % (4-13); Mean Corpuscular HGB 30.1 pg (26.0-34.0); Mean Corpuscular HGB Conc 32.7 g/dL (31.5-36.5); Mean Corpuscular Volume 92 fL (80-100); Mean Platelet Volume 11.6 fL (9.1-12.4); NEUTROPHILS ABSOLUTE AUTO 8.64 K/mm3 (1.96-9.15); NEUTROPHILS PERCENT AUTO 74 % (41-73); Platelet Count 226 K/mm3 (150-400); RDW Coefficient Variation 12.5 % (11.7-14.2); Red Blood Cell Count 3.92 M/mm3 (3.80-5.20); White Blood Cell Count 11.69 K/mm3 (4.00-11.30)
[2023-06-21 06:55] LABS: Albumin, Blood 2.8 g/dL (3.4-5.0); Albumin/Globulin Ratio 0.7 (0.8-1.8); Bilirubin, Total 0.4 mg/dL (0.1-1.0); Bun/Creatinine Ratio 20.9 (12.0-20.0); Calcium, Blood 8.7 mg/dL (8.5-10.1); Creatinine, Blood 0.58 mg/dL (0.40-1.00); Magnesium, Blood 1.7 mg/dL (1.6-2.4); Phosphorus, Blood 1.3 mg/dL (2.5-4.9); Total Protein, Blood 6.8 g/dL (6.4-8.2)
[2023-06-21 07:12] VITALS: BP 187/85
--- NOTE | 2023-06-21 11:03 | NUR ---
MAKES NEEDS KNOWN, NG CLAMPED AT 0830, WILL UNCLAMP AT 1230, IF NG OUTPUT AT THAT TIMES IS GREATER THAN 200 RESULME LIS, IF THE OUTPUT IS LESS THAN 200, NG TO POSSIBLY BE REMOVED, [place] N/V, CALL LIGHT WITH IN REACH
[2023-06-21 14:48] VITALS: BP 174/82
--- NOTE | 2023-06-21 18:10 | NUR ---
PATIENT MAKES NEEDS KNOWN, A&OX 3, SLOW/DELAYED, MUFFLED SPEECH, REMOVED NG TUBE, HEPARIN GTT AT 22 ML/HR, PPN AT 92, NEW PPN BAG HUNG, ST EVAL AND TX ORDERED FOR TOMORROW, SIPS AND CHIPS UNTIL, CALL LIGHT WITH IN REACH, WILL RELAY TO PM RN
[2023-06-21 19:44] VITALS: BP 149/71
[2023-06-22 01:26] LABS: BASOPHILS ABSOLUTE AUTO 0.04 K/mm3 (0.00-0.23); BASOPHILS PERCENT AUTO 0 % (0-2); EOSINOPHILS PERCENT AUTO 4 % (0-6); Hematocrit 34.6 % (33.0-51.0); Hemoglobin 11.6 g/dL (11.5-16.0); IMMATURE GRAN ABSOLUTE AUTO 0.02 K/mm3 (0.00-0.10); IMMATURE GRAN PERCENT AUTO 0 % (0-1); LYMPHOCYTES ABSOLUTE AUTO 2.46 K/mm3 (0.84-5.20); LYMPHOCYTES PERCENT AUTO 26 % (21-46); MONOCYTES ABSOLUTE AUTO 0.77 K/mm3 (0.16-1.47); MONOCYTES PERCENT AUTO 8 % (4-13); Mean Corpuscular HGB 30.1 pg (26.0-34.0); Mean Corpuscular HGB Conc 33.5 g/dL (31.5-36.5); Mean Corpuscular Volume 90 fL (80-100); Mean Platelet Volume 10.7 fL (9.1-12.4); NEUTROPHILS ABSOLUTE AUTO 5.86 K/mm3 (1.96-9.15); NEUTROPHILS PERCENT AUTO 61 % (41-73); Platelet Count 215 K/mm3 (150-400); RDW Coefficient Variation 12.5 % (11.7-14.2); RDW Standard Deviation 40.5 fL (35.1-46.3); Red Blood Cell Count 3.86 M/mm3 (3.80-5.20); White Blood Cell Count 9.55 K/mm3 (4.00-11.30)
[2023-06-22 01:43] LABS: Calcium, Blood 8.3 mg/dL (8.5-10.1); Creatinine, Blood 0.56 mg/dL (0.40-1.00); Potassium, Blood 3.4 mmol/L (3.5-5.5)
[2023-06-22 04:43] VITALS: BP 151/69
[2023-06-22 07:21] VITALS: BP 178/76
--- NOTE | 2023-06-22 11:16 | NUR ---
DR STEPHENS AND DR SORTO ROUNDED ON PATIENT, PATIENT TOLERATING A CLEAR LIQUID DIET, DENIES NV
[2023-06-22 16:57] VITALS: BP 134/49
--- NOTE | 2023-06-22 17:48 | NUR ---
NO ACUTE CHANGES, PPN DISCONTINUED, STARTED ON MECHANICAL SOFT FOOD WITH THIN LIQUIDS, HEPARIN GTT 22 ML/HR, PTT TO BE RECHECKED IN AM.SATS 97% ON RA, INCREASED STRENGTH FOR TRANSFERES TO BS, CONTINENT THROUGHOUT THE DAY, PT/OT/ST ORDERED FOR PATIENT, ACTIVE BT, CALL LIGHT WITH IN REACH, WILL RELAY TO PM RN
[2023-06-22 19:26] VITALS: BP 120/54
--- NOTE | 2023-06-22 21:29 | NUR ---
call to be placed to hospitalist to change blood glucose checks to ac/hs as patient is now eating. blood glucose this evening was >300.
[2023-06-23 04:07] VITALS: BP 127/57
[2023-06-23 04:35] LABS: Bun/Creatinine Ratio 28.2 (12.0-20.0); Creatinine, Blood 0.71 mg/dL (0.40-1.00); Magnesium, Blood 1.9 mg/dL (1.6-2.4); Phosphorus, Blood 2.3 mg/dL (2.5-4.9); Potassium, Blood 3.7 mmol/L (3.5-5.5)
[2023-06-23 07:50] VITALS: BP 131/64
--- NOTE | 2023-06-23 09:08 | NUR ---
heparin gtt stopped, patient started on xarelto, eating breakfast, denies nv or cp, call light with in reach, pleasant to care
--- NOTE | 2023-06-23 09:56 | NUR ---
RESIDENTS ROUNDED ON PATIENT, GOOD APPETITE THIS AM, MAKES NEEDS KNOWN, NO SS OF DISTRESS, DENIES NV
--- NOTE | 2023-06-23 10:04 | NUR ---
DR DELUCA ROUNDED ON PATIENT
[2023-06-23 15:21] VITALS: BP 153/73
--- NOTE | 2023-06-23 17:43 | NUR ---
NO ACUTE CHANGES, HEPARIN GTT STOPPED, MEDICATED FOR PAIN,LEFT FOREARM/RIGHT FOREARMS/ UPPER RIGHT ARM PG ALL S.L. CONITNUES TO [facility], 96% RA, NO DISTRESS, STAND BY ASSIST FOR TRANSFERS, MAKES NEEDS KNOWN, USES CALL LIGHT APPROPROATELY, WILL RELAY TO PM RN
[2023-06-23 19:19] VITALS: BP 168/66
--- NOTE | 2023-06-23 21:52 | NUR ---
ASSUMED PT CARE FROM RN ON DAYSHIFT. PT A&OX4. DENIES ANY NAUSEA, SOB, OR CHEST PAIN. VITAL SIGNS STABLE. TAKES EVENING MEDICATIONS WHOLE WITH WATER WITHOUT DIFFICULTY. RESTING IN BED. DENIES NEEDS AT THIS TIME. CALL LIGHT IN REACH. BED IN LOW POSITION.
--- NOTE | 2023-06-24 05:32 | NUR ---
SHIFT SUMMARY: NO ACUTE CHANGES NOTED DURING THIS SHIFT. DENIES ANY NAUSEA. NO COMPLAINTS OF SOB. O2 SATS MAINTAINED ON 3 LPM, BASLINE FOR PT. VOIDING WITHOUT DIFFICULTY. BED IN LOW POSITION, CALL LIGHT IN REACH.
[2023-06-24 05:54] LABS: Albumin, Blood 2.5 g/dL (3.4-5.0); Anion Gap 3 mmol/L (6-16); Blood Urea Nitrogen 12 mg/dL (8-24); Bun/Creatinine Ratio 19.5 (12.0-20.0); CO2, Blood 30 mmol/L (21-32); Calcium, Blood 8.7 mg/dL (8.5-10.1); Chloride, Blood 108 mmol/L (98-108); Creatinine, Blood 0.61 mg/dL (0.40-1.00); Glomerular Filtration Rate 99 (60-); Glucose, Blood 176 mg/dL (70-99); Magnesium, Blood 1.8 mg/dL (1.6-2.4); Phosphorus, Blood 3.1 mg/dL (2.5-4.9); Potassium, Blood 4.2 mmol/L (3.5-5.5); Sodium, Blood 141 mmol/L (136-145)
[2023-06-24 05:57] VITALS: BP 144/75
[2023-06-24 07:15] VITALS: BP 165/78
--- NOTE | 2023-06-24 12:17 | NUR ---
DISCHARGE SUMMARY PT AXO, PLEASANT AND COOPERATIVE WITH CARE. PT DISCHARGED TO HOME, [facility]. PT LEFT ROOM VIA WHEELCHAIR TRANSPORT AT 1155. IV DC'D AND BELONGINGS RETURNED. SEE TECHNOLOGY LAB TEACHER'S NOTES.
== END 2023-06-24 12:00 | disposition hospice, inpatient (51) | DRG 74 ==
LOC: ER 19:14 → MEDS 23:49 → ER 06-19 00:27 → MEDS 06-19 00:33 → ER 06-19 00:33 → MEDS 06-19 01:07 → ENPENDDIS 06-24 09:14 → MEDS 06-24 12:00
PROVIDERS: Emergency Medicine; Family Medicine; Surgery; ADMIT Student in an Organized Health Care Education/Training Program
PROC: 0D9670Z Drainage of Stomach with Drainage Device, Via Natural or Artificial Opening (ICD-10-PCS; principal; 2023-06-18)
DX: E11.43 Type 2 diabetes mellitus with diabetic autonomic (poly)neuropathy (principal); K56.609 Unspecified intestinal obstruction, unspecified as to partial versus complete obstruction; E44.1 Mild protein-calorie malnutrition; E87.3 Alkalosis; I48.20 Chronic atrial fibrillation, unspecified; K31.89 Other diseases of stomach and duodenum; E87.6 Hypokalemia; K21.9 Gastro-esophageal reflux disease without esophagitis; K22.70 Barrett's esophagus without dysplasia; J44.9 Chronic obstructive pulmonary disease, unspecified; E11.51 Type 2 diabetes mellitus with diabetic peripheral angiopathy without gangrene; K31.84 Gastroparesis; M79.7 Fibromyalgia; F32.9 Major depressive disorder, single episode, unspecified; I10 Essential (primary) hypertension; E83.42 Hypomagnesemia; D64.9 Anemia, unspecified; K58.9 Irritable bowel syndrome, unspecified; M48.00 Spinal stenosis, site unspecified; Z88.0 Allergy status to penicillin; Z88.1 Allergy status to other antibiotic agents; Z88.2 Allergy status to sulfonamides; Z88.8 Allergy status to other drugs, medicaments and biological substances; Z79.899 Other long term (current) drug therapy; Z79.4 Long term (current) use of insulin; Z86.73 Personal history of transient ischemic attack (TIA), and cerebral infarction without residual deficits; Z79.891 Long term (current) use of opiate analgesic; Z86.718 Personal history of other venous thrombosis and embolism; Z86.711 Personal history of pulmonary embolism; Z90.710 Acquired absence of both cervix and uterus; Z98.891 History of uterine scar from previous surgery; Z87.81 Personal history of (healed) traumatic fracture; Z87.891 Personal history of nicotine dependence; Z79.01 Long term (current) use of anticoagulants; Z85.828 Personal history of other malignant neoplasm of skin; Z98.890 Other specified postprocedural states; Z99.81 Dependence on supplemental oxygen; Z68.29 Body mass index [BMI] 29.0-29.9, adult
CPT/HCPCS: 36415; 71045; 74018; 74176; 74177; 80048; 80053; 80069; 82271; 82436; 82803; 82947; 83036; 83615; 83690; 83735; 84100; 84133; 84134; 85025; 85610; 85730; 86140; 92526; 92610; 93005; 93010; 94760; 96365-59; 96366; 96375; 97110; 97162; 97165; 97530; 99285-25; A9270; C1751; C9113; J0360; J1120; J1644; J1815; J2405; J2765; J3010; J3411; J3475; J3480; J7030; J7040; J7050; J7060; Q9967

== ENCOUNTER 2023-08-07 15:02 | Emergency (ER) | payer OTHER ==
[~2023-08-07] VITALS: Ht 160 cm; Wt 73.5 kg
[2023-08-07] MEDS ORDERED: K-Dur10 MEQ (16:11)
[2023-08-07] MEDS ORDERED: TIOT18 INH (16:11)
[2023-08-07] MEDS ORDERED: Methocarbamol500 MG PO (16:12)
[2023-08-07 16:30] VITALS: BP 148/66
== END 2023-08-07 16:30 | disposition home or self-care (01) ==
LOC: ER 15:02
DX: R22.42 Localized swelling, mass and lump, left lower limb (principal); J44.9 Chronic obstructive pulmonary disease, unspecified; E11.51 Type 2 diabetes mellitus with diabetic peripheral angiopathy without gangrene; F32.9 Major depressive disorder, single episode, unspecified; I10 Essential (primary) hypertension; Z88.1 Allergy status to other antibiotic agents; Z88.0 Allergy status to penicillin; Z88.2 Allergy status to sulfonamides; Z79.899 Other long term (current) drug therapy; Z79.4 Long term (current) use of insulin; Z79.01 Long term (current) use of anticoagulants; Z99.81 Dependence on supplemental oxygen; Z87.891 Personal history of nicotine dependence
CPT/HCPCS: 93971; 99284-25

== ENCOUNTER 2023-08-31 17:25 | Emergency (ER) | payer OTHER ==
[~2023-08-31] VITALS: Ht 160 cm; Wt 63.5 kg
[~2023-08-31 17:25] MED LIST changes: -ALBU90OI; +ALBU90OI INH; +DULCOEASE100 MG PO; +K-Dur10 MEQ; +METO10 PO; +Methocarbamol500 MG PO; +NIFE30ER PO; +TIOT18 INH
[2023-08-31 20:21] VITALS: BP 122/55
== END 2023-08-31 20:20 | disposition home or self-care (01) ==
LOC: ER 17:25
DX: Z00.8 Encounter for other general examination (principal); E11.9 Type 2 diabetes mellitus without complications; I10 Essential (primary) hypertension; J44.9 Chronic obstructive pulmonary disease, unspecified; Z99.81 Dependence on supplemental oxygen; Z88.0 Allergy status to penicillin; Z88.1 Allergy status to other antibiotic agents; Z88.2 Allergy status to sulfonamides; Z88.8 Allergy status to other drugs, medicaments and biological substances; Z79.4 Long term (current) use of insulin; Z79.01 Long term (current) use of anticoagulants; Z79.899 Other long term (current) drug therapy; Z79.51 Long term (current) use of inhaled steroids
CPT/HCPCS: 99283

== ENCOUNTER → 2023-09-02 | Outpatient (CLI) | payer OTHER ==
[2023-09-02 13:16] LABS: Appearance, Urine Turbid (Clear); Bilirubin, Urine Neg (Neg); Blood, Urine 5+ (Neg); Color, Urine Yellow (P-Yellow); Glucose Qualitative, Urine Neg (Neg); Ketones, Urine Neg (Neg); Leukocyte Esterase, Urine 3+ (Neg); Nitrite, Urine Neg (Neg); Protein, Urine 3+ (Neg); Urobilinogen, Urine NORM (Normal)
[2023-09-02 13:28] LABS: Squamous Epithelial Cells Few /hpf (Few); White Blood Cells, Urine TNTC /hpf (0-5)
[2023-09-02 13:29] LABS: Amorphous Light (0-Heavy); Bacteria Many /hpf
== END ==
LOC: LAB SHORT 12:08 → LAB 12:08
PROVIDERS: Family Medicine
DX: N39.0 Urinary tract infection, site not specified (principal)
CPT/HCPCS: 81001; 87086; 87147

== ENCOUNTER 2023-09-12 16:45 | Inpatient (IN) | payer OTHER ==
[~2023-09-12] VITALS: Ht 160 cm; Wt 71.2 kg
[~2023-09-12 16:45] MED LIST changes: -METO10 PO
[2023-09-12 17:17] LABS: Source, Urine Suprapubic Cath
[2023-09-12 17:18] LABS: BASOPHILS ABSOLUTE AUTO 0.03 K/mm3 (0.00-0.23); BASOPHILS PERCENT AUTO 0 % (0-2); EOSINOPHILS ABSOLUTE AUTO 0.21 K/mm3 (0.00-0.68); EOSINOPHILS PERCENT AUTO 3 % (0-6); Hematocrit 27.4 % (33.0-51.0); Hemoglobin 8.7 g/dL (11.5-16.0); IMMATURE GRAN ABSOLUTE AUTO 0.03 K/mm3 (0.00-0.10); IMMATURE GRAN PERCENT AUTO 0 % (0-1); LYMPHOCYTES ABSOLUTE AUTO 1.72 K/mm3 (0.84-5.20); LYMPHOCYTES PERCENT AUTO 21 % (21-46); MONOCYTES ABSOLUTE AUTO 0.84 K/mm3 (0.16-1.47); MONOCYTES PERCENT AUTO 10 % (4-13); Mean Corpuscular HGB Conc 31.8 g/dL (31.5-36.5); Mean Corpuscular Volume 91 fL (80-100); Mean Platelet Volume 9.9 fL (9.1-12.4); NEUTROPHILS ABSOLUTE AUTO 5.39 K/mm3 (1.96-9.15); NEUTROPHILS PERCENT AUTO 66 % (41-73); Platelet Count 277 K/mm3 (150-400); RDW Coefficient Variation 13.4 % (11.7-14.2); RDW Standard Deviation 44.8 fL (35.1-46.3); White Blood Cell Count 8.22 K/mm3 (4.00-11.30)
[2023-09-12 17:32] LABS: Appearance, Urine Turbid (Clear); Bilirubin, Urine Neg (Neg); Blood, Urine 4+ (Neg); Color, Urine Yellow (P-Yellow); Glucose Qualitative, Urine Neg (Neg); Ketones, Urine Neg (Neg); Leukocyte Esterase, Urine 3+ (Neg); Nitrite, Urine Neg (Neg); Protein, Urine 3+ (Neg); Urobilinogen, Urine NORM (Normal)
[2023-09-12 17:42] LABS: White Blood Cells, Urine TNTC /hpf (0-5)
[2023-09-12 17:43] LABS: Bacteria Many /hpf; Squamous Epithelial Cells Few /hpf (Few)
[2023-09-12 17:49] LABS: Albumin, Blood 2.2 g/dL (3.4-5.0); Albumin/Globulin Ratio 0.5 (0.8-1.8); Bilirubin, Total 0.2 mg/dL (0.1-1.0); Bun/Creatinine Ratio 25.3 (12.0-20.0); Creatinine, Blood 2.25 mg/dL (0.40-1.00); Globulin, Blood 4.1 g/dL (2.2-4.0); Potassium, Blood 5.4 mmol/L (3.5-5.5); Total Protein, Blood 6.3 g/dL (6.4-8.2)
[2023-09-12 20:34] LABS: Percent Saturation 10.8 % (15.0-50.0)
[2023-09-12] MEDS ORDERED: CILOSTAZOL50 M1 PO (21:05)
[2023-09-12] MEDS ORDERED: TORS10 PO (21:06)
[2023-09-12] MEDS ORDERED: Seroquel Xr50 MG PO (21:06)
[2023-09-12] MEDS ORDERED: NIFE30ER PO (21:06)
[2023-09-12] MEDS ORDERED: POTA10T PO (21:06)
[2023-09-12 21:25] LABS: Influenza A, PCR NEGATIVE (NEGATIVE); Influenza B, PCR NEGATIVE (NEGATIVE); Resp Syncytial Virus, PCR NEGATIVE (NEGATIVE); SARS-Cov-2 (COVID-19) PCR, MMC NEGATIVE (NEGATIVE)
[2023-09-12 21:44] VITALS: BP 118/58
--- NOTE | 2023-09-12 23:24 | NUR ---
ADMIT NOTE 67 YR OLD FEMALE ADMITTED TO FLOOR FROM THE ED. ED RN REPORTED PT CAME FROM [facility] WITH AMS AND DANITA. HX UTI'S. REPORTED WHEN SHE ARRIVE IN THE ED, WAS A/O X 4. HX DM2, COPD, A FIB AND UTI'S. NOTE SWELING OF BLE, LEFT SIDE MORE SWOLEN AND HAS DISCOLORATIONS - SEE PIC IN CHART. ALERT AND ORIENTED. ORIENTED TO USE OF CALL LIGHT. CALL LIGHT IN REACH AND RAILS UP X 3 FOR SAFETY. WILL CONT TO MONITOR
[2023-09-13 02:20] VITALS: BP 126/58
--- NOTE | 2023-09-13 04:08 | NUR ---
ROLLER MECHANIC SUMMARY VSS. WAS ADMITTED EARLIER IN THE SHIFT FOR AMS. BUT HAS BEEN ALERT AND ORIENTED X 4 SINCE ADMISSION. O2 PER NC AT 2L/MIN. HOB ELEVATED FOR [place]. INCONT OF URINE AND CHANGED. NOTED SWELLING OF BILAT ANKLE/SHINS WITH SOME DISCOLORATION. TOLERATED SNACK AT HS. HAS BEEN RSETEING QUIETLY WITH FEW INTERRUPTIONS. HX UTI'S. ED RN REPORTED POSSIBLE UTI/AKF SEE LABS. CALL LIGHT IN REACH. RAILS UP X 3 FOR SAFETY. WILL CONTINUE TO MONITOR.
[2023-09-13 05:46] LABS: BASOPHILS ABSOLUTE AUTO 0.02 K/mm3 (0.00-0.23); BASOPHILS PERCENT AUTO 0 % (0-2); EOSINOPHILS ABSOLUTE AUTO 0.36 K/mm3 (0.00-0.68); EOSINOPHILS PERCENT AUTO 5 % (0-6); Hematocrit 28.1 % (33.0-51.0); Hemoglobin 8.8 g/dL (11.5-16.0); IMMATURE GRAN ABSOLUTE AUTO 0.04 K/mm3 (0.00-0.10); IMMATURE GRAN PERCENT AUTO 1 % (0-1); LYMPHOCYTES PERCENT AUTO 18 % (21-46); MONOCYTES ABSOLUTE AUTO 0.86 K/mm3 (0.16-1.47); MONOCYTES PERCENT AUTO 13 % (4-13); Mean Corpuscular HGB 28.9 pg (26.0-34.0); Mean Corpuscular HGB Conc 31.3 g/dL (31.5-36.5); Mean Corpuscular Volume 92 fL (80-100); Mean Platelet Volume 9.9 fL (9.1-12.4); NEUTROPHILS ABSOLUTE AUTO 4.33 K/mm3 (1.96-9.15); NEUTROPHILS PERCENT AUTO 64 % (41-73); Platelet Count 269 K/mm3 (150-400); RDW Coefficient Variation 13.2 % (11.7-14.2); Red Blood Cell Count 3.04 M/mm3 (3.80-5.20); White Blood Cell Count 6.81 K/mm3 (4.00-11.30)
[2023-09-13 06:01] LABS: Bun/Creatinine Ratio 31.2 (12.0-20.0); Calcium, Blood 11.1 mg/dL (8.5-10.1); Creatinine, Blood 1.54 mg/dL (0.40-1.00); Magnesium, Blood 1.8 mg/dL (1.6-2.4); Potassium, Blood 4.4 mmol/L (3.5-5.5)
[2023-09-13 07:33] VITALS: BP 134/75
[2023-09-13] MEDS ORDERED: CALCIUM 600 +1 EA11 PO (14:36)
[2023-09-13] MEDS ORDERED: MICONAZOLE NITR85 GM TOP (14:38)
[2023-09-13] MEDS ORDERED: EUCERIN ADVANC454 GM TOP (14:39)
[2023-09-13] MEDS ORDERED: FERSU300 PO (14:40)
[2023-09-13] MEDS ORDERED: FLUT.05NI (14:42)
[2023-09-13] MEDS ORDERED: DOCUZEN 8.6-501 EACH PO (14:52)
[2023-09-13] MEDS ORDERED: SYMBICORT 160-4.6 GM INH (14:53)
[2023-09-13] MEDS ORDERED: VITAMIN D5000 UNIT PO (14:54)
[2023-09-13] MEDS ORDERED: ACET500 PO (14:56)
[2023-09-13] MEDS ORDERED: BISA10S PR (14:59)
[2023-09-13] MEDS ORDERED: BENADRYL25 MG PO (14:59)
[2023-09-13] MEDS ORDERED: Atarax10 MG PO (15:00)
[2023-09-13] MEDS ORDERED: LOPE2C PO (15:02)
[2023-09-13] MEDS ORDERED: MAGNESIUM HYDROXIDE PO (15:05)
[2023-09-13] MEDS ORDERED: ONDA4ODT MM (15:06)
[2023-09-13] MEDS ORDERED: MIRALAX17 GM PO (15:07)
[2023-09-13 16:26] VITALS: BP 149/73
--- NOTE | 2023-09-13 18:41 | NUR ---
DAYSHIFT SUMMARY Patient alert & oriented x3. Patient reports weakness, WC baseline. Incontinent of urine, IV ABX administred for UTI. Hydrocodone given for chronic pain. VSS. CBG WNL, SSI humalog administred. Will continue plan of care.
[2023-09-13 20:11] VITALS: BP 163/73
--- NOTE | 2023-09-14 04:23 | NUR ---
SHIFT SUMMARY PATIENT HAD NO ACUTE CHANGES. AXOX 3 AND FORGETFUL NOT REMEMBERING SHE WAS PUSHING CALL LIGHT. BEDREST. PIV REMAINS INTACT. CBG 170. REPORTED NAUSEOUS X ONE AND IV ZOFRAN GIVEN PER EMAR. VSS/AFEBRILE. DENIES CHEST PAIN AND SOB. ON 2L O2 NC. CALL LIGHT IN REACH. BED IN LOWEST POSITION AND ALARM ACTIVATED. WILL CONTINUE TO MONITOR UNTIL DAY SHIFT NURSE ASSUMES CARE.
[2023-09-14 04:57] VITALS: BP 155/69
[2023-09-14 07:25] VITALS: BP 149/76
[2023-09-14 09:41] LABS: BASOPHILS ABSOLUTE AUTO 0.02 K/mm3 (0.00-0.23); BASOPHILS PERCENT AUTO 0 % (0-2); EOSINOPHILS ABSOLUTE AUTO 0.22 K/mm3 (0.00-0.68); EOSINOPHILS PERCENT AUTO 4 % (0-6); Hematocrit 29.4 % (33.0-51.0); Hemoglobin 9.4 g/dL (11.5-16.0); IMMATURE GRAN ABSOLUTE AUTO 0.04 K/mm3 (0.00-0.10); IMMATURE GRAN PERCENT AUTO 1 % (0-1); LYMPHOCYTES ABSOLUTE AUTO 0.97 K/mm3 (0.84-5.20); LYMPHOCYTES PERCENT AUTO 17 % (21-46); MONOCYTES ABSOLUTE AUTO 0.51 K/mm3 (0.16-1.47); MONOCYTES PERCENT AUTO 9 % (4-13); Mean Corpuscular HGB 28.9 pg (26.0-34.0); Mean Corpuscular Volume 91 fL (80-100); Mean Platelet Volume 9.4 fL (9.1-12.4); NEUTROPHILS ABSOLUTE AUTO 3.86 K/mm3 (1.96-9.15); NEUTROPHILS PERCENT AUTO 69 % (41-73); Platelet Count 263 K/mm3 (150-400); RDW Standard Deviation 42.9 fL (35.1-46.3); Red Blood Cell Count 3.25 M/mm3 (3.80-5.20); White Blood Cell Count 5.62 K/mm3 (4.00-11.30)
[2023-09-14 10:07] LABS: Bun/Creatinine Ratio 25.3 (12.0-20.0); Calcium, Blood 9.7 mg/dL (8.5-10.1); Creatinine, Blood 0.79 mg/dL (0.40-1.00); Potassium, Blood 4.1 mmol/L (3.5-5.5)
[2023-09-14 16:28] VITALS: BP 157/75
--- NOTE | 2023-09-14 16:30 | NUR ---
DAYSHIFT SUMMARY Patient alert & oriented x3, cooperative with cares. Gen weakness, reports using WC at baseline. Patient incontinent of bowel/bladder. IV ABX daily, plan to DC back to [facility] next week, per facility policy RN has to come assess patient before patient can DC back to facility. Vitals stable. CBGs AM-115, Lunch-149, no Humalog SSI needed. Vitals stable, will continue plan of care.
[2023-09-14 19:33] VITALS: BP 148/65
[2023-09-15 01:19] VITALS: BP 147/71
--- NOTE | 2023-09-15 03:06 | NUR ---
SHIFT SUMMARY PT RESTING QUIETLY WATCHING TV AT START OF SHIFT. VERY PLEASANT AND CO-OP WITH CARE. PT LATER CALLED TO REPORT INCONTINENT OF BOWELS. PT CLEANED AND CHANGED. IV TO LW NOTED TO BE PULLED OUT BY PT; CAUGHT ON LINENS. NEW IV TO BE PLACED. SWELLING NOTED TO LLE; PT REPORTING NOT NEW, D/T HX OF CVA. PT WAITING TO RETURN TO [address] WHEN NURSE AVAILABLE FOR INTAKE. PT CURRENTLY RESTING QUIETLY WITH EYES CLOSED. CALL LT IN REACH. ABLE TO MAKE NEEDS KNOWN.
[2023-09-15 08:07] VITALS: BP 149/65
[2023-09-15 15:21] VITALS: BP 150/81
--- NOTE | 2023-09-15 17:15 | NUR ---
SHIFT SUMMARY PATIENT IS ALERT AND ORIENTED X2. PATIENT HAS HAD NO ACUTE EVENTS THIS SHIFT. VITAL SIGNS REVIEWED. PATIENT HAS NOT COMPLAINED OF PAIN, NAUSEA, SOB OR VOMITTING THIS SHIFT. PATIENT HAS BEEN RESTING MOST OF THE SHIFT. BED IN LOCKED AND LOWEST POSITION. CALL LIGHT IN PLACE. WILL MONITOR UNTIL SHIFT CHANGE.
[2023-09-15 20:36] VITALS: BP 159/62
[2023-09-16 01:31] VITALS: BP 164/79
--- NOTE | 2023-09-16 02:29 | NUR ---
SHIFT SUMMARY NO ACUTE CHANGES TO PRESENT THIS SHIFT. PT AWAKE AT START OF SHIFT. PLEASANT AND CO-OP WITH CARE. CHANGED FOR INCONTINENCE THRU OUT SHIFT. PT WILL CALL WHEN WET. PT IS MEDICALLY STABLE, WAITING TO RETURN TO [address] WHEN NURSE IS AVAILABLE. RESTING QUIETLY AT THIS TIME. CALL LT IN REACH.
[2023-09-16 05:44] LABS: Bun/Creatinine Ratio 17.1 (12.0-20.0); Calcium, Blood 9.1 mg/dL (8.5-10.1); Creatinine, Blood 0.65 mg/dL (0.40-1.00); Potassium, Blood 3.2 mmol/L (3.5-5.5)
[2023-09-16 07:31] VITALS: BP 155/86
[2023-09-16 15:39] VITALS: BP 153/82
--- NOTE | 2023-09-16 16:37 | NUR ---
DAYSHIFT SUMMARY Patient alert & oriented x3. Pleasant & cooperative with cares. Calls appropriately. IV ABX & Potassium administred. Vitals stable, afebrile, sats stable on 2lpm. Possible DC tomorrow back to facility. Will continue plan of care.
[2023-09-16 19:21] VITALS: BP 148/64
[2023-09-17 03:26] VITALS: BP 149/61
--- NOTE | 2023-09-17 05:11 | NUR ---
SHIFT SUMMARY NOC PT A/O X 3-4. PLEASANT AND COOPERATIVE WITH CARE. NO ACUTE CHANGES TO REPORT. PT ON O2 2L/NC. INC OF URINE AND BM X 3. PT BEDTIME CBG 148 22 UNITS LONG ACTING INSULIN GIVEN ALONG WITH SNACKS.POTASSIUM 3.2 YESTERDAY, REPLACEMENT GIVEN, AWAITING AM LABS FOR IMPROVEMENT. PT EXPECTED TO DISCHARGE BACK TO [address] TODAY. PT IS CURRENTLY RESTING WITH BED IN LOWEST POSITION, AND CALL LIGHT WITHIN REACH.
[2023-09-17 07:07] LABS: BASOPHILS ABSOLUTE AUTO 0.02 K/mm3 (0.00-0.23); BASOPHILS PERCENT AUTO 0 % (0-2); EOSINOPHILS ABSOLUTE AUTO 0.24 K/mm3 (0.00-0.68); EOSINOPHILS PERCENT AUTO 3 % (0-6); Hemoglobin 9.5 g/dL (11.5-16.0); IMMATURE GRAN ABSOLUTE AUTO 0.11 K/mm3 (0.00-0.10); IMMATURE GRAN PERCENT AUTO 1 % (0-1); LYMPHOCYTES ABSOLUTE AUTO 1.56 K/mm3 (0.84-5.20); LYMPHOCYTES PERCENT AUTO 18 % (21-46); MONOCYTES ABSOLUTE AUTO 0.85 K/mm3 (0.16-1.47); MONOCYTES PERCENT AUTO 10 % (4-13); Mean Corpuscular HGB Conc 32.8 g/dL (31.5-36.5); Mean Corpuscular Volume 88 fL (80-100); Mean Platelet Volume 9.3 fL (9.1-12.4); NEUTROPHILS ABSOLUTE AUTO 6.02 K/mm3 (1.96-9.15); NEUTROPHILS PERCENT AUTO 68 % (41-73); Platelet Count 237 K/mm3 (150-400); RDW Coefficient Variation 13.1 % (11.7-14.2); RDW Standard Deviation 42.1 fL (35.1-46.3); Red Blood Cell Count 3.28 M/mm3 (3.80-5.20)
[2023-09-17 07:25] LABS: Albumin, Blood 2.2 g/dL (3.4-5.0); Albumin/Globulin Ratio 0.6 (0.8-1.8); Bilirubin, Total 0.1 mg/dL (0.1-1.0); Bun/Creatinine Ratio 17.5 (12.0-20.0); Calcium, Blood 8.2 mg/dL (8.5-10.1); Creatinine, Blood 0.57 mg/dL (0.40-1.00); Potassium, Blood 3.6 mmol/L (3.5-5.5); Total Protein, Blood 6.2 g/dL (6.4-8.2)
[2023-09-17 07:54] VITALS: BP 166/74
[2023-09-17 14:50] VITALS: BP 149/73
--- NOTE | 2023-09-17 18:06 | NUR ---
SHIFT SUMMARY; PATIENT REMAINS IN BED MOST OF DAY. ONLY GETTING UP TO RECLINER FOR DINNER WITH MUCH ENCOURAGEMENT. PATIENT HAS PT/OT EVAL ORDERED FOR TOMORROW. PER LARRY MCDONALD PATIENT CANNOT RETURN UNLESS SHE IS AT BASELINE. NO ACUTE CHANGES IN CONDITION NOTED TODAY. SHE IS PLEASANT AND COOPERATIVE WITH CARE.
[2023-09-17 19:42] VITALS: BP 178/72
--- NOTE | 2023-09-18 05:19 | NUR ---
SHIFT SUMMARY. NO ACUTE CHANGES. PATIENT A/OX4. PATIENT PLEASANT AND COOPERATIVE WITH CARE. PATIENT LOOKING FORWARD TO WORKING WITH PT/OT TO GET BACK TO BASELINE. PATIENT C/O PAIN-MEDICATED PER EMAR. PATIENT SLEPT WELL T/O NIGHT WITH RESPIRATION EQUAL AND UNLABORED. BED LOCKED IN THE LOWEST POSITION WITH CALL LIGHT IN REACH. NO S/S OF DISTRESS NOTED AT THIS TIME.
[2023-09-18 06:04] VITALS: BP 144/65
[2023-09-18 07:45] VITALS: BP 159/91
[2023-09-18 09:59] LABS: Hematocrit 30.6 % (33.0-51.0)
[2023-09-18 10:20] LABS: Bun/Creatinine Ratio 17.4 (12.0-20.0); Calcium, Blood 8.2 mg/dL (8.5-10.1); Creatinine, Blood 0.63 mg/dL (0.40-1.00); Potassium, Blood 3.8 mmol/L (3.5-5.5)
--- NOTE | 2023-09-18 15:45 | NUR ---
DISCHARGE PT DISCHARGED VIA W/C ESCORT TO [facility]. PACKET GIVEN TO DIP FILLER. PT PRE MEDCIATED WITH M[facility]LO [facility]ARK PRIOR TO LEAVING. CARE ON GOING.
== END 2023-09-18 15:48 | disposition home health service (06) | DRG 683 ==
LOC: ER 16:45 → MEDS 20:05
PROVIDERS: Emergency Medicine; Family Medicine; Nurse Practitioner Acute Care; Student in an Organized Health Care Education/Training Program; ADMIT Internal Medicine
DX: N17.9 Acute kidney failure, unspecified (principal); I69.354 Hemiplegia and hemiparesis following cerebral infarction affecting left non-dominant side; N39.0 Urinary tract infection, site not specified; D64.9 Anemia, unspecified; J44.9 Chronic obstructive pulmonary disease, unspecified; I48.91 Unspecified atrial fibrillation; E11.51 Type 2 diabetes mellitus with diabetic peripheral angiopathy without gangrene; I10 Essential (primary) hypertension; E86.0 Dehydration; E83.52 Hypercalcemia; K21.9 Gastro-esophageal reflux disease without esophagitis; K22.70 Barrett's esophagus without dysplasia; E11.43 Type 2 diabetes mellitus with diabetic autonomic (poly)neuropathy; K31.84 Gastroparesis; K58.9 Irritable bowel syndrome, unspecified; M79.7 Fibromyalgia; F32.9 Major depressive disorder, single episode, unspecified; Z79.4 Long term (current) use of insulin; Z11.52 Encounter for screening for COVID-19; Z88.1 Allergy status to other antibiotic agents; Z88.2 Allergy status to sulfonamides; Z88.0 Allergy status to penicillin; Z88.8 Allergy status to other drugs, medicaments and biological substances; Z86.718 Personal history of other venous thrombosis and embolism; Z86.711 Personal history of pulmonary embolism; Z79.01 Long term (current) use of anticoagulants; Z79.51 Long term (current) use of inhaled steroids; Z87.891 Personal history of nicotine dependence
CPT/HCPCS: 0241U; 36415; 51701; 80048; 80053; 81001; 82728; 82947; 83540; 83550; 83735; 85014; 85018; 85025; 87086; 87147; 93005; 93010; 94640; 94664; 94760; 96365; 97116; 97161; 97165; 97530; 97535; 99285-25; A9270; J0696; J1815; J2405; J3480; J7030; J7050

== ENCOUNTER 2023-09-23 16:52 | Inpatient (IN) | payer OTHER ==
[~2023-09-23] VITALS: Ht 160 cm; Wt 68.0 kg
[~2023-09-23 16:52] MED LIST changes: +ACET500 PO; +DOCUZEN 8.6-501 EACH PO; +EUCERIN ADVANC454 GM TOP; +FERSU300 PO; +FLUT.05NI; +MAGNESIUM HYDROXIDE PO; +MICONAZOLE NITR85 GM TOP; +VITAMIN D5000 UNIT PO
[2023-09-23 18:27] LABS: BASOPHILS ABSOLUTE AUTO 0.02 K/mm3 (0.00-0.23); BASOPHILS PERCENT AUTO 0 % (0-2); EOSINOPHILS ABSOLUTE AUTO 0.02 K/mm3 (0.00-0.68); EOSINOPHILS PERCENT AUTO 0 % (0-6); Hematocrit 34.9 % (33.0-51.0); IMMATURE GRAN ABSOLUTE AUTO 0.07 K/mm3 (0.00-0.10); IMMATURE GRAN PERCENT AUTO 0 % (0-1); LYMPHOCYTES ABSOLUTE AUTO 1.47 K/mm3 (0.84-5.20); LYMPHOCYTES PERCENT AUTO 9 % (21-46); MONOCYTES ABSOLUTE AUTO 0.89 K/mm3 (0.16-1.47); MONOCYTES PERCENT AUTO 5 % (4-13); Mean Corpuscular HGB 28.9 pg (26.0-34.0); Mean Corpuscular HGB Conc 31.5 g/dL (31.5-36.5); Mean Corpuscular Volume 92 fL (80-100); Mean Platelet Volume 10.5 fL (9.1-12.4); NEUTROPHILS ABSOLUTE AUTO 14.11 K/mm3 (1.96-9.15); NEUTROPHILS PERCENT AUTO 85 % (41-73); Platelet Count 288 K/mm3 (150-400); RDW Coefficient Variation 14.5 % (11.7-14.2); RDW Standard Deviation 48.9 fL (35.1-46.3); White Blood Cell Count 16.58 K/mm3 (4.00-11.30)
[2023-09-23 18:47] LABS: Albumin, Blood 2.7 g/dL (3.4-5.0); Albumin/Globulin Ratio 0.7 (0.8-1.8); Bilirubin, Total 0.5 mg/dL (0.1-1.0); Bun/Creatinine Ratio 11.2 (12.0-20.0); Calcium, Blood 9.4 mg/dL (8.5-10.1); Creatinine, Blood 2.76 mg/dL (0.40-1.00); Globulin, Blood 4.1 g/dL (2.2-4.0); Potassium, Blood 4.4 mmol/L (3.5-5.5); Total Protein, Blood 6.8 g/dL (6.4-8.2)
[2023-09-23 20:11] LABS: Source, Urine Straight Cath
[2023-09-23 20:17] LABS: Bilirubin, Urine Neg (Neg); Blood, Urine Neg (Neg); Glucose Qualitative, Urine Neg (Neg); Ketones, Urine Neg (Neg); Leukocyte Esterase, Urine 1+ (Neg); Nitrite, Urine Neg (Neg); Protein, Urine 2+ (Neg); Urobilinogen, Urine NORM (Normal)
[2023-09-23 20:58] LABS: Appearance, Urine Clear (Clear); Color, Urine Yellow (P-Yellow); Red Blood Cells, Urine Not Seen /hpf (0-2); Squamous Epithelial Cells Not Seen /hpf (Few)
[2023-09-23 20:59] LABS: Amorphous Light (0-Heavy); Bacteria Mod /hpf; Hyaline Casts 25-50 /lpf (0-2); Mucus Light (0-Heavy)
[2023-09-23 21:52] LABS: Influenza A, PCR NEGATIVE (NEGATIVE); Influenza B, PCR NEGATIVE (NEGATIVE); Resp Syncytial Virus, PCR NEGATIVE (NEGATIVE); SARS-Cov-2 (COVID-19) PCR, MMC NEGATIVE (NEGATIVE)
[2023-09-24 07:48] LABS: Hematocrit 29.9 % (33.0-51.0); Hemoglobin 9.4 g/dL (11.5-16.0); Mean Corpuscular HGB Conc 31.4 g/dL (31.5-36.5); Mean Corpuscular Volume 92 fL (80-100); Mean Platelet Volume 10.4 fL (9.1-12.4); Platelet Count 257 K/mm3 (150-400); RDW Coefficient Variation 14.7 % (11.7-14.2); RDW Standard Deviation 49.1 fL (35.1-46.3); Red Blood Cell Count 3.24 M/mm3 (3.80-5.20); White Blood Cell Count 11.74 K/mm3 (4.00-11.30)
[2023-09-24 08:28] VITALS: BP 118/42
[2023-09-24 09:17] LABS: Albumin, Blood 2.5 g/dL (3.4-5.0); Blood Urea Nitrogen 36 mg/dL (8-24); Calcium, Blood 8.5 mg/dL (8.5-10.1); Chloride, Blood 93 mmol/L (98-108); Creatinine, Blood 2.25 mg/dL (0.40-1.00); Glomerular Filtration Rate 24 (60-); Glucose, Blood 215 mg/dL (70-99); Phosphorus, Blood 3.9 mg/dL (2.5-4.9); Potassium, Blood 3.2 mmol/L (3.5-5.5); Sodium, Blood 141 mmol/L (136-145)
[2023-09-24 09:18] LABS: Anion Gap Unable to Calculate mmol/L (6-16); CO2, Blood >45 mmol/L (21-32)
[2023-09-24 10:11] LABS: Base Excess Venous 26.7 mmol/L; Bicarbonate Venous 47.7 mmol/L (24.0-30.0); PCO2 Venous 68.8 mmHg (38-42); pH Blood Venous 7.47 (7.34-7.37)
[2023-09-24 11:49] VITALS: BP 137/63
[2023-09-24 14:36] VITALS: BP 140/56
--- NOTE | 2023-09-24 18:41 | NUR ---
NGT 30 MINS POST FULL LQ DIET. DENIES N/V OR ABD PAIN, ABD CONT's TO BE SOFT. NGT REMOVED.
--- NOTE | 2023-09-24 18:44 | NUR ---
SHIFT SUMMARY SINCE ARRIVING TO UNIT, HAS BEEN PLEASANT & COOPERATIVE. ONLY C/O LOWER BACK PAIN; CHRONIC. IV MORPHINE RELIEVES IT. TOLERATED FULL LQ DINNER AFTER DR MORENO ROUNDED. NGT REMOVED.
[2023-09-24 19:10] VITALS: BP 132/49
[2023-09-25 04:14] VITALS: BP 148/67
[2023-09-25 05:02] LABS: BASOPHILS ABSOLUTE AUTO 0.04 K/mm3 (0.00-0.23); BASOPHILS PERCENT AUTO 1 % (0-2); EOSINOPHILS ABSOLUTE AUTO 0.44 K/mm3 (0.00-0.68); EOSINOPHILS PERCENT AUTO 7 % (0-6); Hematocrit 28.4 % (33.0-51.0); Hemoglobin 8.8 g/dL (11.5-16.0); IMMATURE GRAN ABSOLUTE AUTO 0.02 K/mm3 (0.00-0.10); IMMATURE GRAN PERCENT AUTO 0 % (0-1); LYMPHOCYTES ABSOLUTE AUTO 1.83 K/mm3 (0.84-5.20); LYMPHOCYTES PERCENT AUTO 28 % (21-46); MONOCYTES ABSOLUTE AUTO 0.61 K/mm3 (0.16-1.47); MONOCYTES PERCENT AUTO 9 % (4-13); Mean Corpuscular HGB 29.3 pg (26.0-34.0); Mean Corpuscular Volume 95 fL (80-100); Mean Platelet Volume 11.1 fL (9.1-12.4); NEUTROPHILS ABSOLUTE AUTO 3.72 K/mm3 (1.96-9.15); NEUTROPHILS PERCENT AUTO 56 % (41-73); Platelet Count 225 K/mm3 (150-400); RDW Coefficient Variation 14.5 % (11.7-14.2); RDW Standard Deviation 49.3 fL (35.1-46.3); White Blood Cell Count 6.66 K/mm3 (4.00-11.30)
--- NOTE | 2023-09-25 05:15 | NUR ---
SHIFT SUMMARY NO ACUTE CHANGES TO REPORT OVERNIGHT, PT HAS RESTED WELL. SHE DENIES ABD PAIN, AND HAS BEEN TOLERATING PO INTAKE SINCE NG TUBE REMOVAL YESTERDAY AFTERNOON. PT HAS BEEN AMBULATING WITH FWW AND 1 ASSIST TO BSC. VITALS ARE STABLE. BED IN LOWEST POSITION, CALL LIGHT WITHIN REACH.
[2023-09-25 05:42] LABS: Albumin, Blood 2.3 g/dL (3.4-5.0); Albumin/Globulin Ratio 0.6 (0.8-1.8); Bilirubin, Total 0.3 mg/dL (0.1-1.0); Bun/Creatinine Ratio 21.1 (12.0-20.0); Calcium, Blood 8.4 mg/dL (8.5-10.1); Creatinine, Blood 1.52 mg/dL (0.40-1.00); Globulin, Blood 3.8 g/dL (2.2-4.0); Potassium, Blood 3.1 mmol/L (3.5-5.5); Total Protein, Blood 6.1 g/dL (6.4-8.2)
[2023-09-25 07:35] VITALS: BP 151/66
--- NOTE | 2023-09-25 14:54 | NUR ---
REPORT CALLED TO LARRY MCDONALD
--- NOTE | 2023-09-25 15:34 | NUR ---
ESCORTED OUT VIA [facility]/ [facility]
[2023-09-25] MEDS ORDERED: NOVOLOG100 UNIT/2 SC (15:53)
== END 2023-09-25 15:32 | disposition home or self-care (01) | DRG 194 ==
LOC: ER 16:52 → ERHOLD 16:53 → SURS 16:53 → ER 16:53 → SURS 09-24 08:10
PROVIDERS: Emergency Medicine; Internal Medicine; Student in an Organized Health Care Education/Training Program; ADMIT Hospitalist
PROC: 0D9670Z Drainage of Stomach with Drainage Device, Via Natural or Artificial Opening (ICD-10-PCS; principal; 2023-09-23)
DX: J18.9 Pneumonia, unspecified organism (principal); E87.4 Mixed disorder of acid-base balance; N17.9 Acute kidney failure, unspecified; I69.354 Hemiplegia and hemiparesis following cerebral infarction affecting left non-dominant side; I48.20 Chronic atrial fibrillation, unspecified; J44.0 Chronic obstructive pulmonary disease with (acute) lower respiratory infection; R11.2 Nausea with vomiting, unspecified; K21.9 Gastro-esophageal reflux disease without esophagitis; K22.70 Barrett's esophagus without dysplasia; E11.51 Type 2 diabetes mellitus with diabetic peripheral angiopathy without gangrene; I10 Essential (primary) hypertension; F32.9 Major depressive disorder, single episode, unspecified; M79.7 Fibromyalgia; K58.9 Irritable bowel syndrome, unspecified; E86.0 Dehydration; Z86.711 Personal history of pulmonary embolism; Z85.828 Personal history of other malignant neoplasm of skin; Z99.81 Dependence on supplemental oxygen; Z86.718 Personal history of other venous thrombosis and embolism; Z88.0 Allergy status to penicillin; Z88.1 Allergy status to other antibiotic agents; Z88.2 Allergy status to sulfonamides; Z88.8 Allergy status to other drugs, medicaments and biological substances; Z79.4 Long term (current) use of insulin; Z79.899 Other long term (current) drug therapy; Z79.891 Long term (current) use of opiate analgesic; Z79.01 Long term (current) use of anticoagulants; Z87.891 Personal history of nicotine dependence; Z11.52 Encounter for screening for COVID-19
CPT/HCPCS: 0241U; 36415; 71045; 74176; 74177; 80053; 80069; 81001; 82803; 82947; 83605; 83735; 84145; 85025; 85027; 87086; 94640; 94664; 94760; 96361; 96372; 96374-59; 96375; 96376; 99285-25; A9270; C9113; G0378; J0456; J0696; J1644; J1815; J2270; J2405; J2765; J3010; J3480; J7030; J7050; Q9967

== ENCOUNTER 2023-10-02 21:00 | Emergency (ER) | payer OTHER ==
[~2023-10-02] VITALS: Ht 160 cm; Wt 67.6 kg
[~2023-10-02 21:00] MED LIST changes: +NOVOLOG100 UNIT/2 SC
[2023-10-02 21:37] LABS: BASOPHILS ABSOLUTE AUTO 0.03 K/mm3 (0.00-0.23); BASOPHILS PERCENT AUTO 0 % (0-2); EOSINOPHILS ABSOLUTE AUTO 0.11 K/mm3 (0.00-0.68); EOSINOPHILS PERCENT AUTO 2 % (0-6); Hematocrit 33.3 % (33.0-51.0); Hemoglobin 10.6 g/dL (11.5-16.0); IMMATURE GRAN ABSOLUTE AUTO 0.02 K/mm3 (0.00-0.10); IMMATURE GRAN PERCENT AUTO 0 % (0-1); LYMPHOCYTES ABSOLUTE AUTO 1.27 K/mm3 (0.84-5.20); LYMPHOCYTES PERCENT AUTO 18 % (21-46); MONOCYTES ABSOLUTE AUTO 0.54 K/mm3 (0.16-1.47); MONOCYTES PERCENT AUTO 8 % (4-13); Mean Corpuscular HGB 28.8 pg (26.0-34.0); Mean Corpuscular HGB Conc 31.8 g/dL (31.5-36.5); Mean Corpuscular Volume 91 fL (80-100); Mean Platelet Volume 10.2 fL (9.1-12.4); NEUTROPHILS ABSOLUTE AUTO 5.17 K/mm3 (1.96-9.15); NEUTROPHILS PERCENT AUTO 72 % (41-73); Platelet Count 259 K/mm3 (150-400); RDW Coefficient Variation 14.2 % (11.7-14.2); RDW Standard Deviation 47.2 fL (35.1-46.3); Red Blood Cell Count 3.68 M/mm3 (3.80-5.20); White Blood Cell Count 7.14 K/mm3 (4.00-11.30)
[2023-10-02 21:58] LABS: Albumin, Blood 2.7 g/dL (3.4-5.0); Albumin/Globulin Ratio 0.6 (0.8-1.8); Bilirubin, Total 0.4 mg/dL (0.1-1.0); Bun/Creatinine Ratio 12.9 (12.0-20.0); Calcium, Blood 10.8 mg/dL (8.5-10.1); Creatinine, Blood 1.01 mg/dL (0.40-1.00); Globulin, Blood 4.3 g/dL (2.2-4.0); Potassium, Blood 3.5 mmol/L (3.5-5.5)
[2023-10-03 01:00] VITALS: BP 164/92
== END 2023-10-03 05:30 | disposition home or self-care (01) ==
LOC: ER 21:00
PROVIDERS: Student in an Organized Health Care Education/Training Program
DX: R07.89 Other chest pain (principal); R11.2 Nausea with vomiting, unspecified; J44.9 Chronic obstructive pulmonary disease, unspecified; I10 Essential (primary) hypertension; K21.9 Gastro-esophageal reflux disease without esophagitis; E11.9 Type 2 diabetes mellitus without complications; Z88.0 Allergy status to penicillin; Z88.2 Allergy status to sulfonamides; Z88.1 Allergy status to other antibiotic agents; Z88.8 Allergy status to other drugs, medicaments and biological substances; Z79.4 Long term (current) use of insulin; Z79.899 Other long term (current) drug therapy; Z79.02 Long term (current) use of antithrombotics/antiplatelets; Z86.73 Personal history of transient ischemic attack (TIA), and cerebral infarction without residual deficits
CPT/HCPCS: 71046; 74019; 74177; 80053; 83690; 84484; 85025; 93005; 93010; 96361; 96374; 96375; 99285-25; A9270; J1200; J2405; J2765; J7030; P9612; Q9967

== ENCOUNTER 2023-10-23 15:25 | Emergency (ER) | payer OTHER ==
[~2023-10-23] VITALS: Ht 160 cm; Wt 72.6 kg
[2023-10-23 15:43] LABS: BASOPHILS ABSOLUTE AUTO 0.03 K/mm3 (0.00-0.23); BASOPHILS PERCENT AUTO 0 % (0-2); EOSINOPHILS ABSOLUTE AUTO 0.16 K/mm3 (0.00-0.68); EOSINOPHILS PERCENT AUTO 2 % (0-6); Hematocrit 31.4 % (33.0-51.0); Hemoglobin 9.8 g/dL (11.5-16.0); IMMATURE GRAN ABSOLUTE AUTO 0.02 K/mm3 (0.00-0.10); IMMATURE GRAN PERCENT AUTO 0 % (0-1); LYMPHOCYTES ABSOLUTE AUTO 2.28 K/mm3 (0.84-5.20); LYMPHOCYTES PERCENT AUTO 34 % (21-46); MONOCYTES ABSOLUTE AUTO 0.77 K/mm3 (0.16-1.47); MONOCYTES PERCENT AUTO 11 % (4-13); Mean Corpuscular HGB 29.7 pg (26.0-34.0); Mean Corpuscular HGB Conc 31.2 g/dL (31.5-36.5); Mean Corpuscular Volume 95 fL (80-100); Mean Platelet Volume 10.1 fL (9.1-12.4); NEUTROPHILS ABSOLUTE AUTO 3.51 K/mm3 (1.96-9.15); NEUTROPHILS PERCENT AUTO 52 % (41-73); Platelet Count 223 K/mm3 (150-400); RDW Coefficient Variation 14.5 % (11.7-14.2); RDW Standard Deviation 50.1 fL (35.1-46.3); White Blood Cell Count 6.77 K/mm3 (4.00-11.30)
[2023-10-23 16:01] LABS: Albumin, Blood 2.9 g/dL (3.4-5.0); Albumin/Globulin Ratio 0.7 (0.8-1.8); Bilirubin, Total 0.2 mg/dL (0.1-1.0); Bun/Creatinine Ratio 19.7 (12.0-20.0); Calcium, Blood 9.3 mg/dL (8.5-10.1); Creatinine, Blood 0.76 mg/dL (0.40-1.00); Potassium, Blood 3.7 mmol/L (3.5-5.5); Total Protein, Blood 6.9 g/dL (6.4-8.2)
[2023-10-23 16:03] LABS: Source, Urine Clean Catch
[2023-10-23 16:07] LABS: Appearance, Urine Clear (Clear); Bilirubin, Urine Neg (Neg); Blood, Urine Neg (Neg); Color, Urine Yellow (P-Yellow); Glucose Qualitative, Urine Neg (Neg); Ketones, Urine Neg (Neg); Leukocyte Esterase, Urine 1+ (Neg); Nitrite, Urine Neg (Neg); Protein, Urine Neg (Neg); Urobilinogen, Urine NORM (Normal); pH, Urine 6.5 (5.0-8.0)
[2023-10-23 16:12] LABS: International Normalized Ratio 1.28; Prothrombin Time Results 13.3 Sec (9.7-11.5)
[2023-10-23 16:39] LABS: Red Blood Cells, Urine 0-2 /hpf (0-2)
[2023-10-23 16:40] LABS: Amorphous Light (0-Heavy); Bacteria Few /hpf; Squamous Epithelial Cells Rare /hpf (Few); Transitional Epithelial Cells Rare /hpf (0-Rare)
[2023-10-23 19:58] VITALS: BP 149/79
[2023-10-28] MEDS ORDERED: Macrobid 100 M100 MG PO (09:52)
== END 2023-10-23 19:58 | disposition home or self-care (01) ==
LOC: ER 15:25
PROVIDERS: Emergency Medicine
DX: R51.9 Headache, unspecified (principal); E83.42 Hypomagnesemia; K21.9 Gastro-esophageal reflux disease without esophagitis; E11.9 Type 2 diabetes mellitus without complications; J44.9 Chronic obstructive pulmonary disease, unspecified; I69.354 Hemiplegia and hemiparesis following cerebral infarction affecting left non-dominant side; I10 Essential (primary) hypertension; Z88.0 Allergy status to penicillin; Z88.2 Allergy status to sulfonamides; Z88.8 Allergy status to other drugs, medicaments and biological substances; Z88.1 Allergy status to other antibiotic agents; Z79.4 Long term (current) use of insulin; Z79.899 Other long term (current) drug therapy; Z79.02 Long term (current) use of antithrombotics/antiplatelets; Z87.891 Personal history of nicotine dependence
CPT/HCPCS: 70450; 70496; 70498; 80053; 81001; 82947; 83735; 85025; 85610; 87077; 87086; 87186; 93005; 93010; 96365; 99285-25; A9270; J3475; Q9967

== ENCOUNTER → 2023-11-20 | Outpatient (CLI) | payer OTHER ==
[~2023-11-20] MED LIST changes: +Macrobid 100 M100 MG PO
[2023-11-20 16:05] LABS: Source, Urine Voided
[2023-11-20 17:24] LABS: Appearance, Urine Clear (Clear); Bilirubin, Urine Neg (Neg); Blood, Urine Neg (Neg); Color, Urine Yellow (P-Yellow); Glucose Qualitative, Urine Neg (Neg); Ketones, Urine Neg (Neg); Leukocyte Esterase, Urine 2+ (Neg); Nitrite, Urine Neg (Neg); Protein, Urine Neg (Neg); Urobilinogen, Urine NORM (Normal); pH, Urine 6.5 (5.0-8.0)
[2023-11-20 17:50] LABS: Hyaline Casts 0-2 /lpf (0-2)
[2023-11-20 17:51] LABS: Bacteria Mod /hpf; Red Blood Cells, Urine 0-2 /hpf (0-2); Squamous Epithelial Cells Few /hpf (Few); White Blood Cells, Urine 0-2 /hpf (0-5)
== END | disposition home or self-care (01) ==
LOC: LAB SHORT 07:00
PROVIDERS: Family Medicine
DX: N17.9 Acute kidney failure, unspecified (principal)
CPT/HCPCS: 81001; 87086

== ENCOUNTER → 2023-12-25 | Outpatient (CLI) | payer OTHER ==
[2023-12-26 09:19] LABS: Source, Urine Voided
[2023-12-26 10:57] LABS: Appearance, Urine Hazy (Clear); Bilirubin, Urine Neg (Neg); Blood, Urine Neg (Neg); Color, Urine Yellow (P-Yellow); Glucose Qualitative, Urine Neg (Neg); Ketones, Urine Neg (Neg); Leukocyte Esterase, Urine 3+ (Neg); Nitrite, Urine Neg (Neg); Protein, Urine 1+ (Neg); Specific Gravity, Urine 1.015 (1.003-1.022); Urobilinogen, Urine NORM (Normal)
[2023-12-26 11:07] LABS: Amorphous Light (0-Heavy); Bacteria Mod /hpf; Squamous Epithelial Cells Mod /hpf (Few)
== END | disposition home or self-care (01) ==
LOC: LAB SHORT 08:24 → LAB 08:24
PROVIDERS: Family Medicine
DX: N39.0 Urinary tract infection, site not specified (principal)
CPT/HCPCS: 81001; 87086

== ENCOUNTER → 2024-01-10 | Outpatient (CLI) | payer OTHER | END | disposition home or self-care (01) | LOC: LAB SHORT 17:35 → LAB 17:35 | DX: N39.0 Urinary tract infection, site not specified (principal) | CPT/HCPCS: 87086 ==

== ENCOUNTER → 2024-02-27 | Outpatient (CLI) | payer MEDICARE, OTHER ==
[~2024-02-27] MED LIST changes: +DULCOLAX400 MG/5 M PO; +METAMUCIL POWD798 GM PO; +MUPIROCIN1 G1 TOP; +Mucus Relief400 MG PO; +Pyridium100 MG PO; +ZINC OXIDE57 GM TOP
== END ==
LOC: LAB 15:38 → LAB SHORT 15:38
DX: R30.0 Dysuria (principal)
CPT/HCPCS: 87086

== ENCOUNTER 2024-03-08 20:37 | Emergency (ER) | payer MEDICARE, OTHER ==
[~2024-03-08] VITALS: Ht 170.2 cm; Wt 90.7 kg
[~2024-03-08 20:37] MED LIST changes: -DULCOLAX400 MG/5 M PO; -METAMUCIL POWD798 GM PO; -MUPIROCIN1 G1 TOP; -Mucus Relief400 MG PO; -Pyridium100 MG PO; -ZINC OXIDE57 GM TOP
[2024-03-08] MEDS ORDERED: Mucus Relief400 MG PO (20:54)
[2024-03-08] MEDS ORDERED: MYLANTA MAXIMUM10 ML PO (20:54)
[2024-03-08] MEDS ORDERED: ZINC OXIDE57 GM TOP (20:55)
[2024-03-08] MEDS ORDERED: MUPIROCIN1 G1 TOP (20:55)
[2024-03-08] MEDS ORDERED: METAMUCIL POWD798 GM PO (20:55)
[2024-03-08] MEDS ORDERED: DULCOLAX400 MG/5 M PO (20:55)
[2024-03-08] MEDS ORDERED: Ketorolac Tromethamine 30mg Vial IV ONE (21:15)
[2024-03-08] MEDS ORDERED: Ketorolac Tromethamine 30mg Vial IM ONE (21:55)
[2024-03-08 22:21] LABS: Source, Urine Clean Catch
[2024-03-08 22:26] LABS: Bilirubin, Urine Neg (Neg); Blood, Urine Neg (Neg); Glucose Qualitative, Urine Neg (Neg); Ketones, Urine Neg (Neg); Leukocyte Esterase, Urine 1+ (Neg); Nitrite, Urine Neg (Neg); Protein, Urine Neg (Neg); Specific Gravity, Urine 1.015 (1.003-1.022); Urobilinogen, Urine NORM (Normal)
[2024-03-08 22:36] LABS: Appearance, Urine Clear (Clear); Color, Urine Yellow (P-Yellow)
[2024-03-08 22:37] LABS: Amorphous Light (0-Heavy); Bacteria Rare /hpf; Red Blood Cells, Urine Not Seen /hpf (0-2); Squamous Epithelial Cells Few /hpf (Few); White Blood Cells, Urine 0-2 /hpf (0-5)
[2024-03-08] MEDS ORDERED: Cefdinir 300 MG Cap PO ONE (22:45)
[2024-03-08] MEDS ORDERED: CEFD300 PO (22:47)
[2024-03-08] MEDS ORDERED: Pyridium100 MG PO (22:47)
[2024-03-08 22:54] VITALS: BP 134/85
== END 2024-03-08 22:57 | disposition home or self-care (01) ==
LOC: ER 20:37
PROVIDERS: Emergency Medicine
DX: N39.0 Urinary tract infection, site not specified (principal); E11.9 Type 2 diabetes mellitus without complications; I69.954 Hemiplegia and hemiparesis following unspecified cerebrovascular disease affecting left non-dominant side; J44.9 Chronic obstructive pulmonary disease, unspecified; I10 Essential (primary) hypertension; I48.91 Unspecified atrial fibrillation; F32.9 Major depressive disorder, single episode, unspecified; Z99.81 Dependence on supplemental oxygen; Z88.1 Allergy status to other antibiotic agents; Z88.0 Allergy status to penicillin; Z88.8 Allergy status to other drugs, medicaments and biological substances; Z79.4 Long term (current) use of insulin; Z79.01 Long term (current) use of anticoagulants; Z79.899 Other long term (current) drug therapy; Z87.891 Personal history of nicotine dependence
CPT/HCPCS: 81001; 96372; 99284-25; A9270; J1885

== ENCOUNTER 2024-04-14 16:10 | Emergency (ER) | payer OTHER ==
[~2024-04-14] VITALS: Ht 160 cm; Wt 69.0 kg
[~2024-04-14 16:10] MED LIST changes: +DULCOLAX400 MG/5 M PO; +METAMUCIL POWD798 GM PO; +MUPIROCIN1 G1 TOP; +Mucus Relief400 MG PO; +Pyridium100 MG PO; +ZINC OXIDE57 GM TOP
[2024-04-14 17:11] LABS: BASOPHILS ABSOLUTE AUTO 0.02 K/mm3 (0.00-0.23); BASOPHILS PERCENT AUTO 0 % (0-2); EOSINOPHILS ABSOLUTE AUTO 0.13 K/mm3 (0.00-0.68); EOSINOPHILS PERCENT AUTO 2 % (0-6); Hematocrit 31.7 % (33.0-51.0); Hemoglobin 10.4 g/dL (11.5-16.0); IMMATURE GRAN ABSOLUTE AUTO 0.01 K/mm3 (0.00-0.10); IMMATURE GRAN PERCENT AUTO 0 % (0-1); LYMPHOCYTES ABSOLUTE AUTO 2.14 K/mm3 (0.84-5.20); LYMPHOCYTES PERCENT AUTO 33 % (21-46); MONOCYTES ABSOLUTE AUTO 0.44 K/mm3 (0.16-1.47); MONOCYTES PERCENT AUTO 7 % (4-13); Mean Corpuscular HGB 31.1 pg (26.0-34.0); Mean Corpuscular HGB Conc 32.8 g/dL (31.5-36.5); Mean Corpuscular Volume 95 fL (80-100); Mean Platelet Volume 10.2 fL (9.1-12.4); NEUTROPHILS ABSOLUTE AUTO 3.69 K/mm3 (1.96-9.15); NEUTROPHILS PERCENT AUTO 57 % (41-73); Platelet Count 350 K/mm3 (150-400); RDW Coefficient Variation 13.7 % (11.7-14.2); Red Blood Cell Count 3.34 M/mm3 (3.80-5.20); White Blood Cell Count 6.43 K/mm3 (4.00-11.30)
[2024-04-14 17:28] LABS: Albumin, Blood 2.9 g/dL (3.4-5.0); Albumin/Globulin Ratio 0.8 (0.8-1.8); Bilirubin, Total 0.3 mg/dL (0.1-1.0); Bun/Creatinine Ratio 32.2 (12.0-20.0); Calcium, Blood 9.3 mg/dL (8.5-10.1); Creatinine, Blood 0.75 mg/dL (0.40-1.00); Globulin, Blood 3.6 g/dL (2.2-4.0); Potassium, Blood 3.8 mmol/L (3.5-5.5); Total Protein, Blood 6.5 g/dL (6.4-8.2)
[2024-04-14 19:45] VITALS: BP 175/69
[2024-04-14] MEDS ORDERED: Ketorolac Tromethamine 30mg Vial IV ONE (20:15)
[2024-04-14 20:42] LABS: Source, Urine Clean Catch
[2024-04-14 20:59] LABS: Appearance, Urine Clear (Clear); Bilirubin, Urine Neg (Neg); Blood, Urine Neg (Neg); Color, Urine Yellow (P-Yellow); Glucose Qualitative, Urine 1+ (Neg); Ketones, Urine Neg (Neg); Leukocyte Esterase, Urine Neg (Neg); Nitrite, Urine Neg (Neg); Protein, Urine Neg (Neg); Specific Gravity, Urine 1.015 (1.003-1.022); Urobilinogen, Urine NORM (Normal)
== END 2024-04-14 21:26 | disposition home or self-care (01) ==
LOC: ER 16:10
PROVIDERS: Emergency Medicine; Student in an Organized Health Care Education/Training Program
DX: S30.1XXA Contusion of abdominal wall, initial encounter (principal); W18.30XA Fall on same level, unspecified, initial encounter; I10 Essential (primary) hypertension; I48.91 Unspecified atrial fibrillation; E11.9 Type 2 diabetes mellitus without complications; K21.9 Gastro-esophageal reflux disease without esophagitis; I69.954 Hemiplegia and hemiparesis following unspecified cerebrovascular disease affecting left non-dominant side; J44.9 Chronic obstructive pulmonary disease, unspecified; Z87.891 Personal history of nicotine dependence; Z99.81 Dependence on supplemental oxygen; Z88.1 Allergy status to other antibiotic agents; Z88.0 Allergy status to penicillin; Z88.2 Allergy status to sulfonamides; Z88.8 Allergy status to other drugs, medicaments and biological substances; Z79.899 Other long term (current) drug therapy; Z79.01 Long term (current) use of anticoagulants; Z79.4 Long term (current) use of insulin
CPT/HCPCS: 74177; 80053; 81003; 85025; 96374-59; 99284-25; J1885; Q9967

== ENCOUNTER → 2024-06-08 | Outpatient (CLI) | payer OTHER ==
[2024-06-08 16:12] LABS: Source, Urine Voided
[2024-06-08 18:14] LABS: Appearance, Urine Hazy (Clear); Bilirubin, Urine Neg (Neg); Blood, Urine 1+ (Neg); Color, Urine Yellow (P-Yellow); Glucose Qualitative, Urine Neg (Neg); Ketones, Urine Neg (Neg); Leukocyte Esterase, Urine 3+ (Neg); Nitrite, Urine Neg (Neg); Protein, Urine Neg (Neg); Urobilinogen, Urine NORM (Normal)
[2024-06-08 18:30] LABS: Bacteria Many /hpf; Squamous Epithelial Cells Few /hpf (Few); White Blood Cells, Urine 25-50 /hpf (0-5)
== END ==
LOC: LAB SHORT 16:10 → LAB 16:10
PROVIDERS: Family Medicine
DX: N39.0 Urinary tract infection, site not specified (principal)
CPT/HCPCS: 81001; 87086

== ENCOUNTER 2024-06-26 19:25 | Emergency (ER) | payer OTHER ==
[~2024-06-26] VITALS: Ht 160 cm; Wt 68.0 kg
[2024-06-26 20:49] LABS: Source, Urine Foley catheter
[2024-06-26 20:51] LABS: Bilirubin, Urine Neg (Neg); Blood, Urine 1+ (Neg); Glucose Qualitative, Urine Neg (Neg); Ketones, Urine Neg (Neg); Leukocyte Esterase, Urine 1+ (Neg); Nitrite, Urine Neg (Neg); Protein, Urine Neg (Neg); Urobilinogen, Urine NORM (Normal)
[2024-06-26 21:13] LABS: Appearance, Urine Clear (Clear); Color, Urine Pale Yellow (P-Yellow)
[2024-06-26 21:15] LABS: Bacteria Mod /hpf; Red Blood Cells, Urine 0-2 /hpf (0-2); Squamous Epithelial Cells Few /hpf (Few)
[2024-06-26 21:27] VITALS: BP 168/85
== END 2024-06-26 21:25 | disposition home or self-care (01) ==
LOC: ER 19:25
PROVIDERS: Physician Assistant
DX: T83.091A Other mechanical complication of indwelling urethral catheter, initial encounter (principal); J44.9 Chronic obstructive pulmonary disease, unspecified; E11.40 Type 2 diabetes mellitus with diabetic neuropathy, unspecified; J45.909 Unspecified asthma, uncomplicated; I48.91 Unspecified atrial fibrillation; Z87.891 Personal history of nicotine dependence
CPT/HCPCS: 51702; 81001; 87077; 87086; 87147; 87186; 99283

== ENCOUNTER → 2024-07-05 | Outpatient (CLI) | payer OTHER ==
[2024-07-06 13:12] LABS: Appearance, Urine Hazy (Clear); Bilirubin, Urine Neg (Neg); Blood, Urine 2+ (Neg); Color, Urine Yellow (P-Yellow); Glucose Qualitative, Urine Neg (Neg); Ketones, Urine Neg (Neg); Leukocyte Esterase, Urine 3+ (Neg); Nitrite, Urine Neg (Neg); Protein, Urine 1+ (Neg); Urobilinogen, Urine NORM (Normal)
[2024-07-06 13:26] LABS: Bacteria Many /hpf; Squamous Epithelial Cells Not Seen /hpf (Few); White Blood Cells, Urine TNTC /hpf (0-5)
== END ==
LOC: LAB 17:00 → LAB SHORT 17:00
PROVIDERS: Family Medicine
DX: N39.0 Urinary tract infection, site not specified (principal)
CPT/HCPCS: 81001; 87077; 87086; 87186

== ENCOUNTER → 2024-09-18 | Outpatient (CLI) | payer OTHER ==
[2024-09-18 13:38] LABS: Source, Urine Voided
[2024-09-18 15:33] LABS: Appearance, Urine Hazy (Clear); Bilirubin, Urine Neg (Neg); Blood, Urine Neg (Neg); Glucose Qualitative, Urine Neg (Neg); Ketones, Urine Neg (Neg); Leukocyte Esterase, Urine 3+ (Neg); Nitrite, Urine Neg (Neg); Protein, Urine Neg (Neg); Urobilinogen, Urine NORM (Normal)
[2024-09-18 16:04] LABS: Color, Urine Pale Yellow (P-Yellow)
[2024-09-18 16:05] LABS: Bacteria Mod /hpf; Red Blood Cells, Urine Not Seen /hpf (0-2); Squamous Epithelial Cells Rare /hpf (Few); Transitional Epithelial Cells Few /hpf (0-Rare); White Blood Cells, Urine 0-2 /hpf (0-5)
== END ==
LOC: LAB 13:34 → LAB SHORT 13:34
PROVIDERS: Family Medicine
DX: N39.0 Urinary tract infection, site not specified (principal)
CPT/HCPCS: 81001; 87077; 87086; 87186

== ENCOUNTER 2024-10-28 08:50 | Day surgery (SDC) | payer OTHER ==
[~2024-10-28] VITALS: Ht 160 cm; Wt 73.6 kg
[~2024-10-28 08:50] MED LIST changes: +Lactated Ringer's 1,000 ML IV SCH
[2024-10-28 10:56] VITALS: BP 132/64
[2024-10-28] MEDS ORDERED: propofoL 20 ML IV ONE (11:24)
[2024-10-28] MEDS ORDERED: Benzocaine Oral Spray 0.5ML UD ONE (11:32)
[2024-10-28 11:48] VITALS: BP 96/82
--- NOTE | 2024-10-28 11:56 | NUR ---
10/28/24 1156 Jennifer Garcia 1133- History, Chart, Medications and Allergies reviewed before start of procedure.MONITOR INTACT WITH CONTINUOUS PULSE OXIMETRY, CONTINUOUS END TITAL CO2, AND INTERMITTENT BLOOD PRESSURE.3-LEAD EKG REVIEWED WITH PHYSICIAN PRIOR TO START OF PROCEDURE.O2 VIA POM INTACT THROUGHOUT SEDATION/PROCEDURE.HURRICAINE SPRAY TO OROPHARYX.Bite Block Placed. DR. SILVA PROVIDING ANESTHESIA. SEE ANESTHESIA RECORD.
[2024-10-28 12:00] VITALS: BP 145/67
--- NOTE | 2024-10-28 12:13 | NUR ---
Patient up TO PERSONAL WC WITH RN ASSISTANCE. MOBILITY steady WITH PT BASELINE. VSS AND CONSISTENT WITH PT BASELINE. PT HAS NO COMPLAINTS AND VERBALIZES READINESS TO GO HOME. Discharge instructions reviewed with patient. Patient verbalizes understanding. Copy given to patient to take home. Patient States Post-Procedure ride home has been arranged. Discharged via wheelchair to private car for ride home. PT BELONGINGS RETURNED TO PT.
--- NOTE | 2024-10-28 12:17 | NUR ---
1148: REPORT RECEIVED FROM ARCADIO SERRANO. VSS. PT ON RA. PT ABLE TO REPOSITION SELF IN BED. PT REQUESTING PO FLUIDS AND TOLERATING THEM WELL. PT DENIES PAIN, NAUSEA OR OTHER DISCOMFORTS.
== END 2024-10-28 12:17 | disposition home or self-care (01) ==
LOC: ORSCMMR 08:50 → ORD 10:30 → ORSCMMR 10:30
PROVIDERS: Internal Medicine Gastroenterology
PROC: 0DB58ZX Excision of Esophagus, Via Natural or Artificial Opening Endoscopic, Diagnostic (ICD-10-PCS; principal; 2024-10-28 10:30)
DX: K22.70 Barrett's esophagus without dysplasia (principal); K57.30 Diverticulosis of large intestine without perforation or abscess without bleeding; Z86.718 Personal history of other venous thrombosis and embolism; N18.9 Chronic kidney disease, unspecified; E11.9 Type 2 diabetes mellitus without complications; J44.9 Chronic obstructive pulmonary disease, unspecified; I48.91 Unspecified atrial fibrillation; F32.A Depression, unspecified; Z79.01 Long term (current) use of anticoagulants; Z79.4 Long term (current) use of insulin; Z79.899 Other long term (current) drug therapy
CPT/HCPCS: 82947; A9270; J2704; J7120

== ENCOUNTER 2024-12-05 19:18 | Emergency (ER) | payer OTHER ==
[~2024-12-05] VITALS: Ht 157.5 cm; Wt 81.7 kg
[~2024-12-05 19:18] MED LIST changes: -Lactated Ringer's 1,000 ML IV SCH
[2024-12-05 19:21] VITALS: BP 120/58
[2024-12-05] MEDS ORDERED: OxyCODONE 5 mg/Acetamin 325 mg TABLET PO ONE (19:55)
[2024-12-05] MEDS ORDERED: Lidocaine 2% Jelly Uro-Jet UR ONE (19:55)
== END 2024-12-05 22:12 | disposition other institution (70) ==
LOC: ER 19:18
DX: T83.021A Displacement of indwelling urethral catheter, initial encounter (principal); Z88.2 Allergy status to sulfonamides; Z88.0 Allergy status to penicillin; Z88.8 Allergy status to other drugs, medicaments and biological substances; Z79.899 Other long term (current) drug therapy; Z79.4 Long term (current) use of insulin; K21.9 Gastro-esophageal reflux disease without esophagitis; E11.9 Type 2 diabetes mellitus without complications; J45.909 Unspecified asthma, uncomplicated; Z87.891 Personal history of nicotine dependence; I48.91 Unspecified atrial fibrillation
CPT/HCPCS: 51702; 99283-25; A9270

== ENCOUNTER → 2024-12-17 | Outpatient (CLI) | payer OTHER ==
[2024-12-17 17:17] LABS: BASOPHILS ABSOLUTE AUTO 0.04 K/mm3 (0.00-0.23); BASOPHILS PERCENT AUTO 1 % (0-2); EOSINOPHILS PERCENT AUTO 4 % (0-6); Hematocrit 34.2 % (33.0-51.0); Hemoglobin 11.1 g/dL (11.5-16.0); IMMATURE GRAN ABSOLUTE AUTO 0.02 K/mm3 (0.00-0.10); IMMATURE GRAN PERCENT AUTO 0 % (0-1); LYMPHOCYTES ABSOLUTE AUTO 2.56 K/mm3 (0.84-5.20); LYMPHOCYTES PERCENT AUTO 35 % (21-46); MONOCYTES ABSOLUTE AUTO 0.54 K/mm3 (0.16-1.47); MONOCYTES PERCENT AUTO 7 % (4-13); Mean Corpuscular HGB 29.8 pg (26.0-34.0); Mean Corpuscular HGB Conc 32.5 g/dL (31.5-36.5); Mean Corpuscular Volume 92 fL (80-100); Mean Platelet Volume 10.1 fL (9.1-12.4); NEUTROPHILS ABSOLUTE AUTO 3.81 K/mm3 (1.96-9.15); NEUTROPHILS PERCENT AUTO 52 % (41-73); Platelet Count 360 K/mm3 (150-400); RDW Coefficient Variation 12.5 % (11.7-14.2); RDW Standard Deviation 42.4 fL (35.1-46.3); Red Blood Cell Count 3.72 M/mm3 (3.80-5.20); White Blood Cell Count 7.27 K/mm3 (4.00-11.30)
[2024-12-17 17:52] LABS: Albumin, Blood 3.3 g/dL (3.4-5.0); Bilirubin, Total 0.4 mg/dL (0.1-1.0); Bun/Creatinine Ratio 20.2 (12.0-20.0); Calcium, Blood 10.3 mg/dL (8.5-10.1); Creatinine, Blood 0.99 mg/dL (0.40-1.00); Globulin, Blood 3.4 g/dL (2.2-4.0); Potassium, Blood 3.5 mmol/L (3.5-5.5); Total Protein, Blood 6.7 g/dL (6.4-8.2)
== END | disposition home or self-care (01) ==
LOC: LAB SHORT 15:56 → LAB 15:56
PROVIDERS: Family Medicine
DX: Z01.812 Encounter for preprocedural laboratory examination (principal)
CPT/HCPCS: 80053; 85025

== ENCOUNTER 2025-02-04 14:04 | Emergency (ER) | payer OTHER ==
[~2025-02-04] VITALS: Ht 160 cm; Wt 69.4 kg
[2025-02-04 14:35] VITALS: BP 142/54
== END 2025-02-04 15:27 | disposition home or self-care (01) ==
LOC: ER 14:04
DX: Z46.6 Encounter for fitting and adjustment of urinary device (principal); I48.91 Unspecified atrial fibrillation; K21.9 Gastro-esophageal reflux disease without esophagitis; E11.9 Type 2 diabetes mellitus without complications; J44.89 Other specified chronic obstructive pulmonary disease; I10 Essential (primary) hypertension; Z87.891 Personal history of nicotine dependence; Z86.73 Personal history of transient ischemic attack (TIA), and cerebral infarction without residual deficits; Z79.4 Long term (current) use of insulin; Z79.899 Other long term (current) drug therapy; Z79.51 Long term (current) use of inhaled steroids; Z88.1 Allergy status to other antibiotic agents; Z88.0 Allergy status to penicillin; Z88.2 Allergy status to sulfonamides; Z88.8 Allergy status to other drugs, medicaments and biological substances

== ENCOUNTER 2025-02-09 12:43 | Emergency (ER) | payer OTHER ==
[~2025-02-09] VITALS: Ht 160 cm; Wt 70.8 kg
[~2025-02-09 12:43] MED LIST changes: +DICLOFENAC SODIU5 ML RIGHTEYE; +METO10 PO
[2025-02-09] MEDS ORDERED: PREDNISOLONE ACE5 ML RIGHTEYE (13:02)
[2025-02-09] MEDS ORDERED: PROLIA60 MG/1 ML SC (13:06)
[2025-02-09] MEDS ORDERED: MAGNESIUM OXID500 MG PO (13:18)
[2025-02-09] MEDS ORDERED: NYSTOP15 GM TOP (13:19)
[2025-02-09] MEDS ORDERED: METHOCARBAMOL1000 MG PO (13:19)
[2025-02-09 13:31] LABS: BASOPHILS ABSOLUTE AUTO 0.03 K/mm3 (0.00-0.23); BASOPHILS PERCENT AUTO 0 % (0-2); EOSINOPHILS PERCENT AUTO 2 % (0-6); Hemoglobin 12.6 g/dL (11.5-16.0); IMMATURE GRAN ABSOLUTE AUTO 0.04 K/mm3 (0.00-0.10); IMMATURE GRAN PERCENT AUTO 0 % (0-1); LYMPHOCYTES ABSOLUTE AUTO 3.04 K/mm3 (0.84-5.20); LYMPHOCYTES PERCENT AUTO 33 % (21-46); MONOCYTES ABSOLUTE AUTO 0.67 K/mm3 (0.16-1.47); MONOCYTES PERCENT AUTO 7 % (4-13); Mean Corpuscular HGB Conc 32.3 g/dL (31.5-36.5); Mean Corpuscular Volume 93 fL (80-100); Mean Platelet Volume 10.3 fL (9.1-12.4); NEUTROPHILS ABSOLUTE AUTO 5.17 K/mm3 (1.96-9.15); NEUTROPHILS PERCENT AUTO 57 % (41-73); Platelet Count 393 K/mm3 (150-400); RDW Coefficient Variation 12.5 % (11.7-14.2); RDW Standard Deviation 42.8 fL (35.1-46.3); White Blood Cell Count 9.15 K/mm3 (4.00-11.30)
[2025-02-09 13:47] LABS: Source, Urine Suprapubic Cath
[2025-02-09 13:50] LABS: Appearance, Urine Hazy (Clear); Bilirubin, Urine Neg (Neg); Blood, Urine Neg (Neg); Glucose Qualitative, Urine Neg (Neg); Ketones, Urine Neg (Neg); Leukocyte Esterase, Urine 3+ (Neg); Nitrite, Urine Neg (Neg); Protein, Urine 2+ (Neg); Urobilinogen, Urine NORM (Normal)
[2025-02-09 14:02] LABS: Albumin, Blood 3.4 g/dL (3.4-5.0); Albumin/Globulin Ratio 0.8 (0.8-1.8); Bilirubin, Total 0.7 mg/dL (0.1-1.0); Calcium, Blood 10.5 mg/dL (8.5-10.1); Creatinine, Blood 0.82 mg/dL (0.40-1.00); Globulin, Blood 4.3 g/dL (2.2-4.0); Potassium, Blood 3.5 mmol/L (3.5-5.5); Total Protein, Blood 7.7 g/dL (6.4-8.2)
[2025-02-09 14:02] LABS: Color, Urine Pale Yellow (P-Yellow)
[2025-02-09 14:03] LABS: Red Blood Cells, Urine 0-2 /hpf (0-2); Squamous Epithelial Cells Rare /hpf (Few); White Blood Cells, Urine TNTC /hpf (0-5)
[2025-02-09 14:04] LABS: Bacteria Mod /hpf
[2025-02-09] MEDS ORDERED: Cipro500 MG PO (14:17)
[2025-02-09] MEDS ORDERED: LevoFLOXacin 500MG/D5W 100ML 100 ML IV ONE (14:20)
[2025-02-09] MEDS ORDERED: Ketorolac Tromethamine 30mg Vial IV ONE (14:30)
[2025-02-09 15:30] VITALS: BP 134/66
== END 2025-02-09 15:52 | disposition home or self-care (01) ==
LOC: ER 12:43
PROVIDERS: Emergency Medicine
DX: T83.84XA Pain due to genitourinary prosthetic devices, implants and grafts, initial encounter (principal); Y84.6 Urinary catheterization as the cause of abnormal reaction of the patient, or of later complication, without mention of misadventure at the time of the procedure; N39.0 Urinary tract infection, site not specified; I10 Essential (primary) hypertension; F44.89 Other dissociative and conversion disorders; E11.51 Type 2 diabetes mellitus with diabetic peripheral angiopathy without gangrene; K21.9 Gastro-esophageal reflux disease without esophagitis; I48.91 Unspecified atrial fibrillation; Z99.81 Dependence on supplemental oxygen; Z88.1 Allergy status to other antibiotic agents; Z88.0 Allergy status to penicillin; Z88.2 Allergy status to sulfonamides; Z88.8 Allergy status to other drugs, medicaments and biological substances; Z79.899 Other long term (current) drug therapy; Z79.4 Long term (current) use of insulin; Z79.01 Long term (current) use of anticoagulants; Z87.891 Personal history of nicotine dependence
CPT/HCPCS: 74176; 80053; 81001; 85025; 87077; 87086; 87186; 96365; 96375; 99284-25; J1885; J1956

== ENCOUNTER 2025-04-08 14:42 | Emergency (ER) | payer OTHER ==
[~2025-04-08] VITALS: Ht 167.6 cm; Wt 74.8 kg
[~2025-04-08 14:42] MED LIST changes: +CLIN150 PO; +Cipro500 MG PO; +MAGNESIUM OXID500 MG PO; +METHOCARBAMOL1000 MG PO; +NYSTOP15 GM TOP; +PREDNISOLONE ACE5 ML RIGHTEYE; +PROLIA60 MG/1 ML SC
[2025-04-08 15:08] VITALS: BP 114/72
[2025-04-08] MEDS ORDERED: Lidocaine 4% 1 Patch TOP ONE (17:05)
[2025-04-08] MEDS ORDERED: OxyCODONE 5 mg/Acetamin 325 mg TABLET PO ONE (17:05)
[2025-04-08] MEDS ORDERED: CYCL10 PO (17:06)
[2025-04-08] MEDS ORDERED: Voltaren100 GM TOP (17:06)
== END 2025-04-08 18:51 | disposition home or self-care (01) ==
LOC: ER 14:42
DX: M54.32 Sciatica, left side (principal); M25.552 Pain in left hip; G89.29 Other chronic pain
CPT/HCPCS: 99283; A9270

== ENCOUNTER → 2025-04-22 | Outpatient (CLI) | payer OTHER ==
[2025-04-22 18:25] LABS: BASOPHILS ABSOLUTE AUTO 0.02 K/mm3 (0.00-0.23); BASOPHILS PERCENT AUTO 0 % (0-2); EOSINOPHILS ABSOLUTE AUTO 0.25 K/mm3 (0.00-0.68); EOSINOPHILS PERCENT AUTO 4 % (0-6); Hematocrit 33.1 % (33.0-51.0); Hemoglobin 10.3 g/dL (11.5-16.0); IMMATURE GRAN ABSOLUTE AUTO 0.02 K/mm3 (0.00-0.10); IMMATURE GRAN PERCENT AUTO 0 % (0-1); LYMPHOCYTES ABSOLUTE AUTO 1.63 K/mm3 (0.84-5.20); LYMPHOCYTES PERCENT AUTO 25 % (21-46); MONOCYTES ABSOLUTE AUTO 0.39 K/mm3 (0.16-1.47); MONOCYTES PERCENT AUTO 6 % (4-13); Mean Corpuscular HGB Conc 31.1 g/dL (31.5-36.5); Mean Corpuscular Volume 96 fL (80-100); NEUTROPHILS ABSOLUTE AUTO 4.22 K/mm3 (1.96-9.15); NEUTROPHILS PERCENT AUTO 65 % (41-73); NRBC ABSOLUTE 0.00 K/mm3 (0.00-0.02); NRBC Auto 0.0 /100 WBC (0.0-0.2); Platelet Count 328 K/mm3 (150-400); RDW Coefficient Variation 13.0 % (11.7-14.2); RDW Standard Deviation 45.1 fL (35.1-46.3)
[2025-04-22 19:26] LABS: Alanine Aminotransfer (ALT/SGP 17.0 U/L (12-78); Albumin, Blood 2.8 g/dL (3.4-5.0); Albumin/Globulin Ratio 0.7 (0.8-1.8); Anion Gap 8.0 mmol/L (3-11); Aspartate Aminotrans (AST/SGOT 11.0 U/L (12-37); Bilirubin, Total 0.3 mg/dL (0.1-1.0); Blood Urea Nitrogen 20.0 mg/dL (8-24); CO2, Blood 31.0 mmol/L (21-32); Calcium, Blood 10.0 mg/dL (8.5-10.1); Chloride, Blood 101.0 mmol/L (98-108); Creatinine, Blood 0.73 mg/dL (0.40-1.00); Globulin, Blood 3.8 g/dL (2.2-4.0); Glucose, Blood 210.0 mg/dL (70-99); Potassium, Blood 3.8 mmol/L (3.5-5.5); Sodium, Blood 136.0 mmol/L (136-145); Total Protein, Blood 6.6 g/dL (6.4-8.2)
== END | disposition home or self-care (01) ==
LOC: LAB 17:09 → LAB SHORT 17:09
PROVIDERS: Family Medicine
DX: E11.9 Type 2 diabetes mellitus without complications (principal); Z79.4 Long term (current) use of insulin; Z86.39 Personal history of other endocrine, nutritional and metabolic disease
CPT/HCPCS: 80053; 82607; 82746; 83036; 85025

== ENCOUNTER 2025-04-30 15:38 | Emergency (ER) | payer OTHER ==
[~2025-04-30] VITALS: Ht 160 cm; Wt 69.8 kg
[2025-04-30 16:14] VITALS: BP 118/68
[2025-04-30] MEDS ORDERED: HYDROcodone 10-APAP 325 TAB PO ONE (19:05)
== END 2025-04-30 19:15 | disposition home or self-care (01) ==
LOC: ER 15:38
DX: M25.562 Pain in left knee (principal); M79.662 Pain in left lower leg; I10 Essential (primary) hypertension; E11.9 Type 2 diabetes mellitus without complications; J44.9 Chronic obstructive pulmonary disease, unspecified; K21.9 Gastro-esophageal reflux disease without esophagitis; Z87.891 Personal history of nicotine dependence; I48.91 Unspecified atrial fibrillation; Z88.0 Allergy status to penicillin; Z88.8 Allergy status to other drugs, medicaments and biological substances; Z88.2 Allergy status to sulfonamides; Z79.899 Other long term (current) drug therapy
CPT/HCPCS: 73562-LT; 73610; 93971; 99284-25; A9270

== ENCOUNTER → 2025-05-07 | Outpatient (CLI) | payer OTHER ==
[2025-05-07 14:54] LABS: BASOPHILS ABSOLUTE AUTO 0.03 K/mm3 (0.00-0.23); BASOPHILS PERCENT AUTO 0 % (0-2); EOSINOPHILS ABSOLUTE AUTO 0.28 K/mm3 (0.00-0.68); EOSINOPHILS PERCENT AUTO 4 % (0-6); Hematocrit 31.4 % (33.0-51.0); Hemoglobin 9.9 g/dL (11.5-16.0); IMMATURE GRAN ABSOLUTE AUTO 0.02 K/mm3 (0.00-0.10); IMMATURE GRAN PERCENT AUTO 0 % (0-1); LYMPHOCYTES ABSOLUTE AUTO 2.27 K/mm3 (0.84-5.20); LYMPHOCYTES PERCENT AUTO 34 % (21-46); MONOCYTES ABSOLUTE AUTO 0.50 K/mm3 (0.16-1.47); MONOCYTES PERCENT AUTO 7 % (4-13); Mean Corpuscular HGB Conc 31.5 g/dL (31.5-36.5); Mean Corpuscular Volume 96 fL (80-100); NEUTROPHILS ABSOLUTE AUTO 3.64 K/mm3 (1.96-9.15); NEUTROPHILS PERCENT AUTO 54 % (41-73); NRBC ABSOLUTE 0.00 K/mm3 (0.00-0.02); NRBC Auto 0.0 /100 WBC (0.0-0.2); Platelet Count 307 K/mm3 (150-400); RDW Coefficient Variation 12.8 % (11.7-14.2); RDW Standard Deviation 45.1 fL (35.1-46.3)
[2025-05-07 15:38] LABS: Ferritin, Serum 34.0 ng/mL (8-252); Total Iron Binding Capacity 233.0 ug/dL (250-450)
== END ==
LOC: LAB 12:47 → LAB SHORT 12:47
PROVIDERS: Family Medicine
DX: D50.9 Iron deficiency anemia, unspecified (principal)
CPT/HCPCS: 82728; 83540; 83550; 85025

== ENCOUNTER 2025-06-17 15:52 | Emergency (ER) | payer OTHER ==
[~2025-06-17] VITALS: Ht 160 cm; Wt 71.7 kg
[2025-06-17 16:37] LABS: BASOPHILS ABSOLUTE AUTO 0.04 K/mm3 (0.00-0.23); BASOPHILS PERCENT AUTO 1 % (0-2); EOSINOPHILS ABSOLUTE AUTO 0.28 K/mm3 (0.00-0.68); EOSINOPHILS PERCENT AUTO 3 % (0-6); Hematocrit 38.8 % (33.0-51.0); Hemoglobin 12.5 g/dL (11.5-16.0); IMMATURE GRAN ABSOLUTE AUTO 0.02 K/mm3 (0.00-0.10); IMMATURE GRAN PERCENT AUTO 0 % (0-1); LYMPHOCYTES ABSOLUTE AUTO 2.60 K/mm3 (0.84-5.20); LYMPHOCYTES PERCENT AUTO 31 % (21-46); MONOCYTES ABSOLUTE AUTO 0.67 K/mm3 (0.16-1.47); MONOCYTES PERCENT AUTO 8 % (4-13); Mean Corpuscular HGB Conc 32.2 g/dL (31.5-36.5); Mean Corpuscular Volume 93 fL (80-100); NEUTROPHILS ABSOLUTE AUTO 4.89 K/mm3 (1.96-9.15); NEUTROPHILS PERCENT AUTO 58 % (41-73); NRBC ABSOLUTE 0.00 K/mm3 (0.00-0.02); NRBC Auto 0.0 /100 WBC (0.0-0.2); Platelet Count 393 K/mm3 (150-400); RDW Coefficient Variation 12.3 % (11.7-14.2); RDW Standard Deviation 41.8 fL (35.1-46.3)
[2025-06-17 17:48] LABS: Alanine Aminotransfer (ALT/SGP 17.0 U/L (12-78); Albumin, Blood 3.1 g/dL (3.4-5.0); Albumin/Globulin Ratio 0.8 (0.8-1.8); Anion Gap 8.0 mmol/L (3-11); Aspartate Aminotrans (AST/SGOT 48.0 U/L (12-37); Bilirubin, Total 0.3 mg/dL (0.1-1.0); Blood Urea Nitrogen 28.0 mg/dL (8-24); CO2, Blood 29.0 mmol/L (21-32); Calcium, Blood 9.8 mg/dL (8.5-10.1); Chloride, Blood 100.0 mmol/L (98-108); Creatinine, Blood 1.17 mg/dL (0.40-1.00); Globulin, Blood 4.0 g/dL (2.2-4.0); Glucose, Blood 98.0 mg/dL (70-99); Potassium, Blood 5.1 mmol/L (3.5-5.5); Sodium, Blood 132.0 mmol/L (136-145); Total Protein, Blood 7.1 g/dL (6.4-8.2)
[2025-06-17] MEDS ORDERED: NS 1,000 ML IV SCH (19:15)
[2025-06-17 20:27] LABS: Source, Urine Suprapubic Cath
[2025-06-17 20:37] LABS: Bilirubin, Urine Neg (Neg); Glucose Qualitative, Urine Neg (Neg); Ketones, Urine Neg (Neg); Leukocyte Esterase, Urine 3+ (Neg); Protein, Urine 3+ (Neg); Specific Gravity, Urine 1.010 (1.003-1.022); Urobilinogen, Urine NORM (Normal)
[2025-06-17 20:55] LABS: Color, Urine Yellow (P-Yellow)
[2025-06-17 20:56] LABS: White Blood Cells, Urine TNTC /hpf (0-5)
[2025-06-17 21:30] VITALS: BP 139/58
== END 2025-06-17 21:41 | disposition home or self-care (01) ==
LOC: ER 15:52
PROVIDERS: Physician Assistant
DX: R53.1 Weakness (principal); J44.9 Chronic obstructive pulmonary disease, unspecified; E11.40 Type 2 diabetes mellitus with diabetic neuropathy, unspecified; J45.909 Unspecified asthma, uncomplicated; Z79.899 Other long term (current) drug therapy; Z88.0 Allergy status to penicillin; Z88.2 Allergy status to sulfonamides; Z88.8 Allergy status to other drugs, medicaments and biological substances; M81.0 Age-related osteoporosis without current pathological fracture; D50.9 Iron deficiency anemia, unspecified
CPT/HCPCS: 36415; 70450; 71045; 80053; 81001; 83605; 84100; 85025; 87077; 87086; 87147; 87186; 96360; 99285-25; J7030

== ENCOUNTER 2025-08-26 18:03 | Emergency (ER) | payer OTHER ==
[~2025-08-26] VITALS: Ht 160 cm; Wt 69.4 kg
[2025-08-26 20:15] VITALS: BP 131/70
== END 2025-08-26 22:06 | disposition home or self-care (01) ==
LOC: ER 18:03
DX: H57.11 Ocular pain, right eye (principal); Z46.6 Encounter for fitting and adjustment of urinary device; Z88.2 Allergy status to sulfonamides; Z88.8 Allergy status to other drugs, medicaments and biological substances; Z88.0 Allergy status to penicillin; Z79.899 Other long term (current) drug therapy; K21.9 Gastro-esophageal reflux disease without esophagitis; E11.9 Type 2 diabetes mellitus without complications; J45.909 Unspecified asthma, uncomplicated; I10 Essential (primary) hypertension; I48.91 Unspecified atrial fibrillation; Z87.891 Personal history of nicotine dependence
CPT/HCPCS: 70450; 99284-25; A9270

== ENCOUNTER 2025-08-30 19:03 | Emergency (ER) | payer OTHER ==
[~2025-08-30] VITALS: Ht 160 cm; Wt 69.4 kg
[2025-08-30] MEDS ORDERED: NS 1,000 ML IV SCH (19:55)
[2025-08-30 20:23] LABS: BASOPHILS ABSOLUTE AUTO 0.03 K/mm3 (0.00-0.23); BASOPHILS PERCENT AUTO 0 % (0-2); EOSINOPHILS ABSOLUTE AUTO 0.08 K/mm3 (0.00-0.68); EOSINOPHILS PERCENT AUTO 1 % (0-6); Hematocrit 36.5 % (33.0-51.0); Hemoglobin 11.9 g/dL (11.5-16.0); IMMATURE GRAN ABSOLUTE AUTO 0.04 K/mm3 (0.00-0.10); IMMATURE GRAN PERCENT AUTO 0 % (0-1); LYMPHOCYTES ABSOLUTE AUTO 1.90 K/mm3 (0.84-5.20); LYMPHOCYTES PERCENT AUTO 20 % (21-46); MONOCYTES ABSOLUTE AUTO 0.60 K/mm3 (0.16-1.47); MONOCYTES PERCENT AUTO 6 % (4-13); Mean Corpuscular HGB Conc 32.6 g/dL (31.5-36.5); Mean Corpuscular Volume 93 fL (80-100); NEUTROPHILS ABSOLUTE AUTO 7.02 K/mm3 (1.96-9.15); NEUTROPHILS PERCENT AUTO 73 % (41-73); NRBC ABSOLUTE 0.00 K/mm3 (0.00-0.02); NRBC Auto 0.0 /100 WBC (0.0-0.2); Platelet Count 408 K/mm3 (150-400); RDW Coefficient Variation 14.8 % (11.7-14.2); RDW Standard Deviation 51.6 fL (35.1-46.3)
[2025-08-30 20:42] LABS: Alanine Aminotransfer (ALT/SGP 16.0 U/L (12-78); Albumin, Blood 3.0 g/dL (3.4-5.0); Albumin/Globulin Ratio 0.8 (0.8-1.8); Anion Gap 8.0 mmol/L (3-11); Aspartate Aminotrans (AST/SGOT 19.0 U/L (12-37); Bilirubin, Total 0.4 mg/dL (0.1-1.0); Blood Urea Nitrogen 17.0 mg/dL (8-24); CO2, Blood 32.0 mmol/L (21-32); Calcium, Blood 10.2 mg/dL (8.5-10.1); Chloride, Blood 103.0 mmol/L (98-108); Creatinine, Blood 0.73 mg/dL (0.40-1.00); Globulin, Blood 3.7 g/dL (2.2-4.0); Glucose, Blood 118.0 mg/dL (70-99); Potassium, Blood 3.6 mmol/L (3.5-5.5); Sodium, Blood 139.0 mmol/L (136-145); Total Protein, Blood 6.7 g/dL (6.4-8.2)
[2025-08-30 21:00] VITALS: BP 142/72
[2025-08-30] MEDS ORDERED: OxyCODONE 5 mg/Acetamin 325 mg TABLET PO ONE (21:25)
[2025-08-30 21:26] LABS: Source, Urine Suprapubic Cath
[2025-08-30 21:41] LABS: Bilirubin, Urine Neg (Neg); Glucose Qualitative, Urine Neg (Neg); Ketones, Urine Neg (Neg); Leukocyte Esterase, Urine 3+ (Neg); Protein, Urine 2+ (Neg); Specific Gravity, Urine 1.010 (1.003-1.022); Urobilinogen, Urine NORM (Normal)
[2025-08-30 21:48] LABS: Color, Urine Yellow (P-Yellow)
[2025-08-30 21:49] LABS: Red Blood Cells, Urine 0-2 /hpf (0-2)
== END 2025-08-30 22:54 | disposition home or self-care (01) ==
LOC: ER 19:03
PROVIDERS: Student in an Organized Health Care Education/Training Program
DX: T83.030A Leakage of cystostomy catheter, initial encounter (principal); R10.30 Lower abdominal pain, unspecified; R31.9 Hematuria, unspecified; R82.81 Pyuria; R80.9 Proteinuria, unspecified; R82.71 Bacteriuria; E11.9 Type 2 diabetes mellitus without complications; I69.354 Hemiplegia and hemiparesis following cerebral infarction affecting left non-dominant side; I10 Essential (primary) hypertension; I48.91 Unspecified atrial fibrillation; J44.89 Other specified chronic obstructive pulmonary disease; Z99.81 Dependence on supplemental oxygen; Z87.891 Personal history of nicotine dependence; Z88.1 Allergy status to other antibiotic agents; Z88.2 Allergy status to sulfonamides; Z88.0 Allergy status to penicillin; Z88.8 Allergy status to other drugs, medicaments and biological substances; Z79.4 Long term (current) use of insulin; Z79.01 Long term (current) use of anticoagulants; Z79.899 Other long term (current) drug therapy
CPT/HCPCS: 74177; 80053; 81001; 83690; 85025; 87086; 96360-59; 99284-25; A9270; J7030; Q9967